=== PATIENT | female | born 1955 | race African-American/Black ===

== ENCOUNTER 2017-06-30 15:37 | Emergency (ER) | payer MEDICARE, MEDICAID ==
[~2017-06-30] VITALS: Ht 157.5 cm; Wt 87.0 kg
[~2017-06-30 15:37] MED LIST: FOS1G PO
[2017-06-30] MEDS ORDERED: KETOROLAC 30MG/ML VIAL IV STA (16:24)
[2017-06-30 17:12] LABS: BASOPHILS % 0.8 % (0.0-2.0); EOSINOPHILS % 7.5 % (0.0-5.0); HEMATOCRIT. 37.9 % (36.0-48.0); HEMOGLOBIN. 12.7 g/dL (12.0-16.0); LYMPHOCYTES % 16.2 % (20.0-50.0); MEAN CORPUSCULAR HEMOGLOBIN 29.5 pg (28.0-32.0); MEAN CORPUSCULAR VOLUME 88.4 fL (81.0-99.0); MONOCYTES % 10.4 % (2.0-8.0); NEUTROPHILS % 65.1 % (40.0-76.0); PLATELET 237 x1000/uL (130-400); RED BLOOD CELL COUNT 4.29 mill/uL (4.2-5.4); RED CELL DISTRIBUTION WIDTH 14.8 % (11.6-14.6)
[2017-06-30 17:16] LABS: INR 1.1; PROTHROMBIN TIME 10.9 sec (9.4-11.6)
[2017-06-30 17:23] LABS: CARBON DIOXIDE 28 mEq/L (21-32); CHLORIDE 100 mEq/L (98-107)
[2017-06-30 17:57] LABS: CLARITY URINE CLOUDY (CLEAR); COLOR URINE YELLOW (YELLOW); GLUCOSE URINE NEGATIVE (NEGATIVE); KETONES URINE NEGATIVE (NEGATIVE); LEUKOCYTE ESTERASE URINE TRACE (NEGATIVE); NITRITE URINE NEGATIVE (NEGATIVE); OCCULT BLOOD URINE NEGATIVE (NEGATIVE); PH URINE >=9.0 (4.5-8.0); PROTEIN URINE 2+ (NEGATIVE); UROBILINOGEN URINE 0.2 E.U./dL (0.2-1.0)
[2017-06-30] MEDS ORDERED: CYCLOBENZAPRINE 10MG TABLET PO ONE (19:45)
[2017-06-30 20:34] VITALS: BP 143/89
== END 2017-06-30 20:36 | disposition home or self-care (01) ==
LOC: ER 15:37
DX: M54.5 Low back pain (principal); R11.2 Nausea with vomiting, unspecified; R06.02 Shortness of breath; I12.0 Hypertensive chronic kidney disease with stage 5 chronic kidney disease or end stage renal disease; N18.6 End stage renal disease; K57.30 Diverticulosis of large intestine without perforation or abscess without bleeding; Z99.2 Dependence on renal dialysis; Z90.710 Acquired absence of both cervix and uterus
CPT/HCPCS: 36415; 71010; 74176; 80053; 81001; 83690; 85025; 85610; 96374; 99285; J1885

== ENCOUNTER 2017-11-02 21:32 | Emergency (ER) | payer MEDICARE, MEDICAID ==
[~2017-11-02] VITALS: Ht 157.5 cm; Wt 88.5 kg
[~2017-11-02 21:32] MED LIST changes: +CINA30 PO; +DIPH25CA83 PO; +HYDR-4009 PO; +ZOLP5TAB2 PO
[2017-11-02] MEDS ORDERED: KETOROLAC 60MG/2ML VIAL IM ONE (22:15)
[2017-11-02] MEDS ORDERED: HYDROCODONE/ACETAMINOPHEN 5/325MG TABLET PO ONE (22:45)
[2017-11-03 00:23] VITALS: BP 109/80
== END 2017-11-03 00:25 | disposition home or self-care (01) ==
LOC: ER 21:41
DX: S83.91XA Sprain of unspecified site of right knee, initial encounter (principal); N18.6 End stage renal disease; Z99.2 Dependence on renal dialysis; Z88.8 Allergy status to other drugs, medicaments and biological substances; Z88.5 Allergy status to narcotic agent; W10.9XXA Fall (on) (from) unspecified stairs and steps, initial encounter; W19.XXXA Unspecified fall, initial encounter; Y93.89 Activity, other specified; Y92.89 Other specified places as the place of occurrence of the external cause; Y99.8 Other external cause status
CPT/HCPCS: 72170; 73562; 96372; 99284; J1885; L1830

== ENCOUNTER 2018-08-15 19:09 | Inpatient (IN) | payer MEDICARE, MEDICAID ==
[~2018-08-15] VITALS: Ht 157.5 cm; Wt 95.8 kg
[2018-08-15] MEDS ORDERED: ALBUTEROL (0.083%) 2.5MG/3ML NEB HHN STA (19:33)
[2018-08-15] MEDS ORDERED: VANCOMYCIN 1 G PREMIX 200 ML IV STA (19:35)
[2018-08-15] MEDS ORDERED: PIPERACILLIN/TAZOBACTAM 3.375GM/50ML PREMIX IV ONE (19:45)
[2018-08-15] MEDS ORDERED: PIPERACILLIN/TAZ 3.375G PREMIX 50 ML IV NR (19:45)
[2018-08-15] MEDS ORDERED: ONDANSETRON HCL 4MG/2ML INJ IV ONE (20:00)
[2018-08-15 20:10] LABS: BG BASE EXCESS 1.9 mmol/L (-2.0-2.0); BG CARBOXYHEMOGLOBIN 0.3 % (0.5-1.5); BG DEOXYHEMOGLOBIN 1.9 % (0.0-5.0); BG FRACTION INSPIRED OXYGEN 28; BG HCO3 ACT 23.9 mmol/L (22.0-26.0); BG METHEMOGLOBIN 0.1 % (0.0-1.5); BG OXYGEN SATURATION 98.1 % (92.0-98.5); BG OXYHEMOGLOBIN 97.7 % (94.0-97.0); BG PCO2 29.5 mmHg (35.0-45.0); BG PH 7.527 (7.350-7.450); BG PO2 109.4 mmHg (75.0-100.0); BG SAMPLE SITE LEFT RADIAL; BG TOTAL HEMOGLOBIN 12.3 g/dL (12.0-18.0); BG VENT MODE COOL AEROSOL
[2018-08-15 20:38] LABS: BASOPHILS % 0.8 % (0.0-2.0); EOSINOPHILS % 7.4 % (0.0-5.0); HEMATOCRIT. 34.4 % (36.0-48.0); HEMOGLOBIN. 11.5 g/dL (12.0-16.0); LYMPHOCYTES % 19.6 % (20.0-50.0); MEAN CORPUSCULAR HEMOGLOBIN 29.1 pg (28.0-32.0); MEAN CORPUSCULAR VOLUME 86.9 fL (81.0-99.0); MEAN PLATELET VOLUME 7.9 fl (7.4-10.4); MONOCYTES % 12.3 % (2.0-8.0); NEUTROPHILS % 59.9 % (40.0-76.0); PLATELET 253 x1000/uL (130-400); RED BLOOD CELL COUNT 3.95 mill/uL (4.2-5.4)
[2018-08-15] MEDS ORDERED: IPRATROPIUM BROMIDE (0.02%) 0.5MG/2.5ML NEB HHN ONE (20:45)
[2018-08-15 20:47] LABS: CHLORIDE 98 mEq/L (98-107); PARTIAL THROMBOPLASTIN TIME 22.8 sec (23.4-31.0); PROTHROMBIN TIME 10.4 sec (9.1-11.1)
[2018-08-15] MEDS ORDERED: DIPHENHYDRAMINE 50MG/ML VIAL IM ONE (22:45)
[2018-08-16] VITALS (8 sets, daily range): BP systolic 100–132; BP diastolic 54–80
[2018-08-16] MEDS: HYDROMORPHONE HCL/PF 2MG/ML CPJ IV PRN ×3 (01:29→13:25)
[2018-08-16] MEDS ORDERED: ZOLPIDEM TARTRATE 5MG TABLET PO PRN (03:00)
[2018-08-16] MEDS ORDERED: IPRATROPIUM/ALBUTEROL 0.5-3(2.5)MG/3ML NEB HHN PRN (03:00)
[2018-08-16] MEDS ORDERED: ACETAMINOPHEN 325MG TABLET PO PRN (03:00)
[2018-08-16] MEDS: DIPHENHYDRAMINE 25MG CAPSULE PO PRN ×3 (03:20→20:11)
[2018-08-16 06:04] LABS: BASOPHILS % 0.5 % (0.0-2.0); EOSINOPHILS % 5.6 % (0.0-5.0); HEMATOCRIT. 32.8 % (36.0-48.0); HEMOGLOBIN. 11.3 g/dL (12.0-16.0); LYMPHOCYTES % 15.3 % (20.0-50.0); MEAN CORPUSCULAR HEMOGLOBIN 30.1 pg (28.0-32.0); MEAN CORPUSCULAR VOLUME 87.3 fL (81.0-99.0); MEAN PLATELET VOLUME 7.8 fl (7.4-10.4); MONOCYTES % 14.7 % (2.0-8.0); NEUTROPHILS % 63.9 % (40.0-76.0); PLATELET 233 x1000/uL (130-400); RED BLOOD CELL COUNT 3.75 mill/uL (4.2-5.4); RED CELL DISTRIBUTION WIDTH 15.7 % (11.6-14.6)
[2018-08-16 06:33] LABS: PHOSPHORUS 7.1 mg/dL (2.5-4.9)
[2018-08-16] MEDS: LANTHANUM CARBONATE 500MG CHEW TABLET PO SCH ×3 (08:00→18:00)
[2018-08-16] MEDS: DOCUSATE SODIUM 250MG CAPSULE PO SCH (08:37)
[2018-08-16] MEDS: FOLIC ACID/VITAMIN B COMP W-C TABLET PO SCH (08:37)
[2018-08-16] MEDS: ENOXAPARIN 30MG/0.3ML SYR SUBCUT SCH (08:40)
[2018-08-16] MEDS ORDERED: MONTELUKAST PO (09:17)
[2018-08-16] MEDS: DIPHENHYDRAMINE 50MG/ML VIAL IV PRN ×2 (13:54→20:21)
[2018-08-16] MEDS: MORPHINE SULFATE 4 MG/ML CPJ (NOT FOR IM USE) IV PRN ×2 (13:54→20:12)
[2018-08-16] MEDS: FAMOTIDINE 20MG TABLET PO SCH (20:11)
[2018-08-16] MEDS: MONTELUKAST SODIUM 10MG TABLET PO SCH (20:11)
[2018-08-17] VITALS (10 sets, daily range): BP systolic 85–140; BP diastolic 56–90
[2018-08-17] MEDS: ACETYLCYSTEINE 100MG/ML 10% VIAL 4ML INH SCH (00:50)
[2018-08-17] MEDS: IPRATROPIUM/ALBUTEROL 0.5-3(2.5)MG/3ML NEB HHN SCH ×4 (00:50→21:16)
[2018-08-17] MEDS: ACETYLCYSTEINE 200MG/ML 20% VIAL 4ML PO SCH ×2 (01:12→08:59)
[2018-08-17 06:05] LABS: CHLORIDE 106 mEq/L (98-107)
[2018-08-17 06:16] LABS: PHOSPHORUS 5.4 mg/dL (2.5-4.9)
[2018-08-17 06:20] LABS: HEMATOCRIT. 34.2 % (36.0-48.0); HEMOGLOBIN. 11.4 g/dL (12.0-16.0); MEAN CORPUSCULAR HEMOGLOBIN 29.4 pg (28.0-32.0); MEAN PLATELET VOLUME 7.9 fl (7.4-10.4); PLATELET 235 x1000/uL (130-400); RED BLOOD CELL COUNT 3.88 mill/uL (4.2-5.4); RED CELL DISTRIBUTION WIDTH 15.9 % (11.6-14.6)
[2018-08-17] MEDS: LANTHANUM CARBONATE 500MG CHEW TABLET PO SCH ×3 (08:00→18:00)
[2018-08-17] MEDS: DOCUSATE SODIUM 250MG CAPSULE PO SCH (08:59)
[2018-08-17] MEDS: FOLIC ACID/VITAMIN B COMP W-C TABLET PO SCH (08:59)
[2018-08-17] MEDS: ENOXAPARIN 30MG/0.3ML SYR SUBCUT SCH (09:00)
[2018-08-17 11:02] LABS: PLATELET ESTIMATE NORMAL
[2018-08-17] MEDS: METHYLPREDNISOLONE SOD SUCC 40 MG/ML VIAL IV SCH ×2 (11:12→17:43)
[2018-08-17] MEDS: DIPHENHYDRAMINE 25MG CAPSULE PO PRN (11:13)
[2018-08-17] MEDS: MORPHINE SULFATE 4 MG/ML CPJ (NOT FOR IM USE) IV PRN ×3 (11:14→22:31)
[2018-08-17] MEDS: DIPHENHYDRAMINE 50MG/ML VIAL IV PRN ×2 (17:49→22:32)
[2018-08-17] MEDS ORDERED: Auryxia PO (19:31)
[2018-08-17] MEDS ORDERED: ACETYLCYSTEINE 200MG/ML 20% VIAL 4ML INH SCH (21:00)
[2018-08-17] MEDS: MONTELUKAST SODIUM 10MG TABLET PO SCH (21:38)
[2018-08-17] MEDS: FAMOTIDINE 20MG TABLET PO SCH (21:43)
[2018-08-18] VITALS (12 sets, daily range): BP systolic 107–143; BP diastolic 48–81
[2018-08-18] MEDS: IPRATROPIUM/ALBUTEROL 0.5-3(2.5)MG/3ML NEB HHN SCH ×2 (02:00→08:21)
[2018-08-18] MEDS: METHYLPREDNISOLONE SOD SUCC 40 MG/ML VIAL IV SCH ×3 (02:00→17:13)
[2018-08-18 05:42] LABS: HEMATOCRIT. 32.8 % (36.0-48.0); HEMOGLOBIN. 11.1 g/dL (12.0-16.0); MEAN CORPUSCULAR HEMOGLOBIN 29.8 pg (28.0-32.0); MEAN CORPUSCULAR VOLUME 88.4 fL (81.0-99.0); PLATELET 245 x1000/uL (130-400); RED BLOOD CELL COUNT 3.71 mill/uL (4.2-5.4); RED CELL DISTRIBUTION WIDTH 15.7 % (11.6-14.6)
[2018-08-18] MEDS: LANTHANUM CARBONATE 500MG CHEW TABLET PO SCH ×4 (08:00→17:14)
[2018-08-18] MEDS: ACETYLCYSTEINE 100MG/ML 10% VIAL 4ML INH SCH ×2 (08:22→13:51)
[2018-08-18] MEDS ORDERED: GUAIFENESIN/CODEINE 200-20MG/10ML UDC PO NR (08:56)
[2018-08-18] MEDS ORDERED: GUAIFENESIN/CODEINE 200-20MG/10ML UDC PO PRN (09:00)
[2018-08-18] MEDS: ARFORMOTEROL TARTRATE 15MCG/2ML NEB NEB SCH ×2 (09:00→20:52)
[2018-08-18] MEDS: MORPHINE SULFATE 4 MG/ML CPJ (NOT FOR IM USE) IV PRN ×2 (09:02→17:06)
[2018-08-18] MEDS: DIPHENHYDRAMINE 50MG/ML VIAL IV PRN ×2 (09:02→21:57)
[2018-08-18] MEDS: FOLIC ACID/VITAMIN B COMP W-C TABLET PO SCH (09:03)
[2018-08-18] MEDS: DOCUSATE SODIUM 250MG CAPSULE PO SCH (09:03)
[2018-08-18] MEDS: ENOXAPARIN 30MG/0.3ML SYR SUBCUT SCH (09:04)
[2018-08-18 12:34] LABS: PLATELET ESTIMATE NORMAL
[2018-08-18] MEDS: IPRATROPIUM/ALBUTEROL 0.5-3(2.5)MG/3ML NEB HHN PRN (15:50)
[2018-08-18] MEDS: FAMOTIDINE 20MG TABLET PO SCH (21:53)
[2018-08-18] MEDS: MONTELUKAST SODIUM 10MG TABLET PO SCH (21:53)
[2018-08-18] MEDS: TEMAZEPAM 15MG CAPSULE PO PRN (21:53)
[2018-08-19] VITALS (10 sets, daily range): BP systolic 101–149; BP diastolic 59–87
[2018-08-19] MEDS: IPRATROPIUM/ALBUTEROL 0.5-3(2.5)MG/3ML NEB HHN PRN (00:47)
[2018-08-19] MEDS: ACETYLCYSTEINE 100MG/ML 10% VIAL 4ML INH SCH ×2 (00:48→08:12)
[2018-08-19] MEDS: HYDROCODONE/ACETAMINOPHEN 10/325MG TABLET PO PRN (05:37)
[2018-08-19] MEDS: DIPHENHYDRAMINE 50MG/ML VIAL IV PRN ×3 (05:38→18:04)
[2018-08-19 06:11] LABS: HEMATOCRIT. 32.3 % (36.0-48.0); HEMOGLOBIN. 10.8 g/dL (12.0-16.0); MEAN CORPUSCULAR HEMOGLOBIN 29.7 pg (28.0-32.0); MEAN CORPUSCULAR VOLUME 88.4 fL (81.0-99.0); MEAN PLATELET VOLUME 8.1 fl (7.4-10.4); PLATELET 226 x1000/uL (130-400); RED BLOOD CELL COUNT 3.66 mill/uL (4.2-5.4); RED CELL DISTRIBUTION WIDTH 15.8 % (11.6-14.6)
[2018-08-19 07:55] LABS: PLATELET ESTIMATE NORMAL
[2018-08-19] MEDS: LANTHANUM CARBONATE 500MG CHEW TABLET PO SCH ×3 (08:00→17:25)
[2018-08-19] MEDS: METHYLPREDNISOLONE SOD SUCC 40 MG/ML VIAL IV SCH (08:08)
[2018-08-19] MEDS: FOLIC ACID/VITAMIN B COMP W-C TABLET PO SCH (08:08)
[2018-08-19] MEDS: DOCUSATE SODIUM 250MG CAPSULE PO SCH (08:08)
[2018-08-19] MEDS: ARFORMOTEROL TARTRATE 15MCG/2ML NEB NEB SCH ×3 (08:09→21:01)
[2018-08-19] MEDS: ENOXAPARIN 30MG/0.3ML SYR SUBCUT SCH (08:09)
[2018-08-19] MEDS: FERRIC CITRATE 210 MG PO SCH ×5 (08:20→17:25)
[2018-08-19] MEDS: DIPHENHYDRAMINE 25MG CAPSULE PO PRN (09:13)
[2018-08-19] MEDS: MORPHINE SULFATE 4 MG/ML CPJ (NOT FOR IM USE) IV PRN (11:55)
[2018-08-19] MEDS ORDERED: EPOETIN ALFA 4000UNITS/ML VIAL SUBCUT SCH (21:00)
[2018-08-19] MEDS: TEMAZEPAM 15MG CAPSULE PO PRN (21:32)
[2018-08-19] MEDS: MONTELUKAST SODIUM 10MG TABLET PO SCH (21:32)
[2018-08-19] MEDS: FAMOTIDINE 20MG TABLET PO SCH (21:32)
[2018-08-20] VITALS (10 sets, daily range): BP systolic 113–136; BP diastolic 70–88
[2018-08-20] MEDS: HYDROCODONE/ACETAMINOPHEN 10/325MG TABLET PO PRN (06:16)
[2018-08-20] MEDS: DIPHENHYDRAMINE 50MG/ML VIAL IV PRN ×2 (06:16→12:42)
[2018-08-20 06:46] LABS: BASOPHILS % 0.4 % (0.0-2.0); EOSINOPHILS % 0.6 % (0.0-5.0); HEMATOCRIT. 32.9 % (36.0-48.0); HEMOGLOBIN. 10.9 g/dL (12.0-16.0); LYMPHOCYTES % 18.3 % (20.0-50.0); MEAN CORPUSCULAR HEMOGLOBIN 29.4 pg (28.0-32.0); MEAN CORPUSCULAR VOLUME 88.4 fL (81.0-99.0); MEAN PLATELET VOLUME 7.7 fl (7.4-10.4); MONOCYTES % 10.2 % (2.0-8.0); NEUTROPHILS % 70.5 % (40.0-76.0); PLATELET 227 x1000/uL (130-400); RED BLOOD CELL COUNT 3.72 mill/uL (4.2-5.4)
[2018-08-20 07:13] LABS: PHOSPHORUS 4.8 mg/dL (2.5-4.9)
[2018-08-20] MEDS: IPRATROPIUM/ALBUTEROL 0.5-3(2.5)MG/3ML NEB HHN PRN (07:39)
[2018-08-20] MEDS: LANTHANUM CARBONATE 500MG CHEW TABLET PO SCH ×2 (08:00→13:00)
[2018-08-20] MEDS: FOLIC ACID/VITAMIN B COMP W-C TABLET PO SCH (08:26)
[2018-08-20] MEDS: DOCUSATE SODIUM 250MG CAPSULE PO SCH (08:26)
[2018-08-20] MEDS: ENOXAPARIN 30MG/0.3ML SYR SUBCUT SCH (08:26)
[2018-08-20] MEDS ORDERED: PREDNISONE 20MG TABLET PO SCH (09:00)
[2018-08-20] MEDS: ARFORMOTEROL TARTRATE 15MCG/2ML NEB NEB SCH (09:40)
[2018-08-20] MEDS ORDERED: NA PHOS,M-B/NA PHOS,DI-BA ENEMA 118ML PR NR (09:45)
[2018-08-20] MEDS ORDERED: SODIUM POLYSTYRENE SULFONATE 15 G/60 ML BOT PO NR (09:45)
[2018-08-20] MEDS: FERRIC CITRATE 210 MG PO SCH ×3 (10:20→13:00)
== END 2018-08-20 17:12 | disposition home or self-care (01) | DRG 189 ==
LOC: ER 19:09 → 5EST 21:17 → EDBEDREQ 21:20 → EDBEDREQTM 21:20 → ENRESERV 21:44
PROVIDERS: ADMIT Internal Medicine Geriatric Medicine; ATTEND Internal Medicine Geriatric Medicine
PROC: 5A1D70Z Performance of Urinary Filtration, Intermittent, Less than 6 Hours Per Day (ICD-10-PCS; 2018-08-15)
PROC: 5A1D70Z Performance of Urinary Filtration, Intermittent, Less than 6 Hours Per Day (ICD-10-PCS; principal; 2018-08-18)
DX: J96.20 Acute and chronic respiratory failure, unspecified whether with hypoxia or hypercapnia (principal); N18.6 End stage renal disease; J44.1 Chronic obstructive pulmonary disease with (acute) exacerbation; E46 Unspecified protein-calorie malnutrition; J44.0 Chronic obstructive pulmonary disease with (acute) lower respiratory infection; I12.0 Hypertensive chronic kidney disease with stage 5 chronic kidney disease or end stage renal disease; J20.9 Acute bronchitis, unspecified; G58.8 Other specified mononeuropathies; E66.01 Morbid (severe) obesity due to excess calories; Z99.2 Dependence on renal dialysis; Z93.0 Tracheostomy status; L29.9 Pruritus, unspecified; D63.1 Anemia in chronic kidney disease; E87.5 Hyperkalemia; F41.1 Generalized anxiety disorder; G47.33 Obstructive sleep apnea (adult) (pediatric); Z88.5 Allergy status to narcotic agent; Z88.8 Allergy status to other drugs, medicaments and biological substances; Z90.710 Acquired absence of both cervix and uterus; Z88.0 Allergy status to penicillin; Z68.38 Body mass index [BMI] 38.0-38.9, adult; Z88.1 Allergy status to other antibiotic agents; Z79.899 Other long term (current) drug therapy; Z98.891 History of uterine scar from previous surgery
CPT/HCPCS: 36415; 36600; 71045; 80048; 82375; 82805; 83605; 83735; 83880; 84100; 84132; 84484; 87070; 93005; 93970; 93971; 94640; 96365; 96367; 96372; 96375; 99285; C1893; J1170; J1200; J1650; J2270; J2405; J2543; J2920; J3370; J7030; J7512; J7608; J7620; Q0163

== ENCOUNTER 2018-08-25 15:54 | Inpatient (IN) | payer MEDICARE, MEDICAID ==
[~2018-08-25] VITALS: Ht 157.5 cm; Wt 103.9 kg
[~2018-08-25 15:54] MED LIST changes: +Auryxia PO; -FOS1G PO; +MONTELUKAST PO
[2018-08-25 16:00] VITALS: BP 147/90
[2018-08-25] MEDS ORDERED: BENZONATATE 100MG CAPSULE PO PRN (17:15)
[2018-08-25] MEDS ORDERED: IPRATROPIUM/ALBUTEROL 0.5-3(2.5)MG/3ML NEB HHN PRN (17:15)
[2018-08-25 17:44] LABS: BG BASE EXCESS -3.1 mmol/L (-2.0-2.0); BG CARBOXYHEMOGLOBIN 0.5 % (0.5-1.5); BG DEOXYHEMOGLOBIN 5.2 % (0.0-5.0); BG FRACTION INSPIRED OXYGEN 21; BG METHEMOGLOBIN 0.6 % (0.0-1.5); BG OXYGEN SATURATION 94.7 % (92.0-98.5); BG OXYHEMOGLOBIN 93.7 % (94.0-97.0); BG PCO2 29.6 mmHg (35.0-45.0); BG PH 7.447 (7.350-7.450); BG PO2 73.7 mmHg (75.0-100.0); BG SAMPLE SITE LEFT RADIAL; BG TOTAL HEMOGLOBIN 11.5 g/dL (12.0-18.0); BG VENT MODE ROOM AIR
[2018-08-25 18:00] VITALS: BP 127/55
[2018-08-25 18:04] VITALS: BP 127/55
[2018-08-25] MEDS ORDERED: METHYLPREDNISOLONE SOD SUCC 125 MG/2 ML VIAL IV NR (18:08)
[2018-08-25] MEDS ORDERED: ACETAMINOPHEN 325MG TABLET PO PRN (18:16)
[2018-08-25] MEDS ORDERED: MORPHINE SULFATE 10 MG/ML CPJ IM ONE (19:30)
[2018-08-25 20:00] VITALS: BP 136/85
[2018-08-25] MEDS: IPRATROPIUM/ALBUTEROL 0.5-3(2.5)MG/3ML NEB HHN SCH (20:29)
[2018-08-25] MEDS: ARFORMOTEROL TARTRATE 15MCG/2ML NEB NEB SCH (20:37)
[2018-08-25] MEDS: MORPHINE SULFATE 4 MG/ML CPJ (NOT FOR IM USE) IV PRN (20:45)
[2018-08-25] MEDS ORDERED: ASPIRIN 81MG EC TABLET PO NR (21:00)
[2018-08-25] MEDS ORDERED: ENOXAPARIN 30MG/0.3ML SYR SUBCUT SCH (21:00)
[2018-08-25] MEDS ORDERED: PANTOPRAZOLE 40MG DR TABLET PO NR (21:00)
[2018-08-25 21:22] LABS: HEMOGLOBIN. 10.9 g/dL (12.0-16.0); MEAN CORPUSCULAR HEMOGLOBIN 29.2 pg (28.0-32.0); MEAN PLATELET VOLUME 8.1 fl (7.4-10.4); PLATELET 196 x1000/uL (130-400); RED BLOOD CELL COUNT 3.74 mill/uL (4.2-5.4); RED CELL DISTRIBUTION WIDTH 15.9 % (11.6-14.6)
[2018-08-25 21:28] LABS: CHLORIDE 102 mEq/L (98-107)
[2018-08-25] MEDS: DIPHENHYDRAMINE 50MG/ML VIAL IV PRN (21:40)
[2018-08-25 22:00] VITALS: BP 146/69
[2018-08-25] MEDS ORDERED: ACETYLCYSTEINE 100MG/ML 10% VIAL 4ML INH SCH (22:00)
[2018-08-25 22:10] LABS: PLATELET ESTIMATE NORMAL
[2018-08-25] MEDS ORDERED: METHYLPREDNISOLONE SOD SUCC 125 MG/2 ML VIAL IV SCH (23:00)
[2018-08-25] MEDS: METHYLPREDNISOLONE SOD SUCC 40 MG/ML VIAL IV SCH (23:35)
[2018-08-26] VITALS (12 sets, daily range): BP systolic 101–162; BP diastolic 61–91
[2018-08-26] MEDS: DIPHENHYDRAMINE 50MG/ML VIAL IV PRN ×2 (03:38→16:29)
[2018-08-26] MEDS: MORPHINE SULFATE 4 MG/ML CPJ (NOT FOR IM USE) IV PRN ×2 (03:39→16:28)
[2018-08-26] MEDS: IPRATROPIUM/ALBUTEROL 0.5-3(2.5)MG/3ML NEB HHN SCH ×3 (04:30→11:22)
[2018-08-26] MEDS: HYDROCODONE/ACETAMINOPHEN 10/325MG TABLET PO PRN (05:48)
[2018-08-26] MEDS: METHYLPREDNISOLONE SOD SUCC 40 MG/ML VIAL IV SCH ×3 (06:35→22:42)
[2018-08-26 07:09] LABS: HEMATOCRIT. 34.6 % (36.0-48.0); HEMOGLOBIN. 11.3 g/dL (12.0-16.0); MEAN CORPUSCULAR HEMOGLOBIN 29.1 pg (28.0-32.0); MEAN CORPUSCULAR VOLUME 89.4 fL (81.0-99.0); MEAN PLATELET VOLUME 8.2 fl (7.4-10.4); PLATELET 186 x1000/uL (130-400); RED BLOOD CELL COUNT 3.88 mill/uL (4.2-5.4); RED CELL DISTRIBUTION WIDTH 15.9 % (11.6-14.6)
[2018-08-26 07:19] LABS: CHLORIDE 100 mEq/L (98-107)
[2018-08-26 08:33] LABS: PLATELET ESTIMATE NORMAL
[2018-08-26] MEDS: ARFORMOTEROL TARTRATE 15MCG/2ML NEB NEB SCH ×2 (08:35→20:49)
[2018-08-26] MEDS: CEFTRIAXONE 1 G PREMIX 50 ML IV SCH (09:45)
[2018-08-26] MEDS: PANTOPRAZOLE 40MG DR TABLET PO SCH (09:45)
[2018-08-26] MEDS: CINACALCET HCL 30MG TABLET PO SCH ×2 (09:45→14:52)
[2018-08-26] MEDS: ASPIRIN 81MG EC TABLET PO SCH (09:45)
[2018-08-26] MEDS: GUAIFENESIN/CODEINE 100-10MG/5ML UDC PO PRN (09:45)
[2018-08-26] MEDS: ENOXAPARIN 30MG/0.3ML SYR SUBCUT SCH (09:46)
[2018-08-26] MEDS: IPRATROPIUM BROMIDE (0.02%) 0.5MG/2.5ML NEB HHN PRN (15:57)
[2018-08-26] MEDS: MONTELUKAST SODIUM 10MG TABLET PO SCH (16:27)
[2018-08-26] MEDS: ZOLPIDEM TARTRATE 5MG TABLET PO PRN (22:42)
[2018-08-26] MEDS: DIPHENHYDRAMINE 25MG CAPSULE PO PRN (22:45)
[2018-08-27] VITALS (12 sets, daily range): BP systolic 110–153; BP diastolic 51–99
[2018-08-27] MEDS: IPRATROPIUM BROMIDE (0.02%) 0.5MG/2.5ML NEB HHN PRN ×2 (00:59→04:31)
[2018-08-27] MEDS: METHYLPREDNISOLONE SOD SUCC 40 MG/ML VIAL IV SCH ×3 (06:00→21:36)
[2018-08-27 07:13] LABS: HEMATOCRIT. 32.3 % (36.0-48.0); HEMOGLOBIN. 10.7 g/dL (12.0-16.0); MEAN CORPUSCULAR HEMOGLOBIN 29.4 pg (28.0-32.0); MEAN CORPUSCULAR VOLUME 88.4 fL (81.0-99.0); MEAN PLATELET VOLUME 8.3 fl (7.4-10.4); PLATELET 200 x1000/uL (130-400); RED BLOOD CELL COUNT 3.65 mill/uL (4.2-5.4)
[2018-08-27 07:47] LABS: PHOSPHORUS 5.4 mg/dL (2.5-4.9)
[2018-08-27] MEDS: CEFTRIAXONE 1 G PREMIX 50 ML IV SCH (08:59)
[2018-08-27] MEDS: ASPIRIN 81MG EC TABLET PO SCH (08:59)
[2018-08-27] MEDS: ENOXAPARIN 30MG/0.3ML SYR SUBCUT SCH (08:59)
[2018-08-27] MEDS: PANTOPRAZOLE 40MG DR TABLET PO SCH (09:06)
[2018-08-27] MEDS: ARFORMOTEROL TARTRATE 15MCG/2ML NEB NEB SCH ×2 (09:20→21:23)
[2018-08-27] MEDS: DIPHENHYDRAMINE 25MG CAPSULE PO PRN (09:30)
[2018-08-27] MEDS: CINACALCET HCL 30MG TABLET PO SCH ×4 (09:31→17:06)
[2018-08-27 11:23] LABS: PLATELET ESTIMATE NORMAL
[2018-08-27] MEDS ORDERED: AZITHROMYCIN IV SCH (11:30)
[2018-08-27] MEDS ORDERED: WATER IV SCH (11:30)
[2018-08-27] MEDS ORDERED: DEXT 5% IV SCH (11:30)
[2018-08-27] MEDS ORDERED: LIDOCAINE HCL 1% 20ML VIAL (Pyxis) INJ ONE (13:07)
[2018-08-27] MEDS: DIPHENHYDRAMINE 50MG/ML VIAL IV PRN ×2 (14:01→21:36)
[2018-08-27] MEDS: MORPHINE SULFATE 4 MG/ML CPJ (NOT FOR IM USE) IV PRN ×2 (14:03→21:37)
[2018-08-27] MEDS: MONTELUKAST SODIUM 10MG TABLET PO SCH (17:06)
[2018-08-27] MEDS: GUAIFENESIN 600MG ER TABLET PO SCH (21:36)
[2018-08-27] MEDS: ZOLPIDEM TARTRATE 5MG TABLET PO PRN (21:37)
[2018-08-27] MEDS ORDERED: LACTULOSE 20G/30ML UDC PO PRN (22:00)
[2018-08-27] MEDS: DOCUSATE SODIUM 250MG CAPSULE PO PRN (22:31)
[2018-08-28] VITALS (12 sets, daily range): BP systolic 127–156; BP diastolic 50–97
[2018-08-28] MEDS: DIPHENHYDRAMINE 50MG/ML VIAL IV PRN ×4 (03:07→22:13)
[2018-08-28] MEDS: MORPHINE SULFATE 4 MG/ML CPJ (NOT FOR IM USE) IV PRN ×4 (03:08→22:14)
[2018-08-28] MEDS: METHYLPREDNISOLONE SOD SUCC 40 MG/ML VIAL IV SCH (06:21)
[2018-08-28 08:13] LABS: CHLORIDE 109 mEq/L (98-107)
[2018-08-28] MEDS: ARFORMOTEROL TARTRATE 15MCG/2ML NEB NEB SCH (08:33)
[2018-08-28] MEDS: IPRATROPIUM BROMIDE (0.02%) 0.5MG/2.5ML NEB HHN SCH ×4 (08:45→20:39)
[2018-08-28] MEDS: ACETYLCYSTEINE 100MG/ML 10% VIAL 4ML INH SCH ×2 (08:45→12:15)
[2018-08-28] MEDS: CEFTRIAXONE 1 G PREMIX 50 ML IV SCH (09:34)
[2018-08-28] MEDS: FLUTICASONE PROPIONATE 50MCG/SPRAY BOTTLE BOTHNSTRLS SCH ×2 (10:00→21:00)
[2018-08-28] MEDS: CINACALCET HCL 30MG TABLET PO SCH ×2 (14:48→16:20)
[2018-08-28] MEDS: FAMOTIDINE 20MG TABLET PO SCH (14:48)
[2018-08-28] MEDS: ASPIRIN 81MG EC TABLET PO SCH (14:49)
[2018-08-28] MEDS: GUAIFENESIN 600MG ER TABLET PO SCH ×2 (14:49→22:18)
[2018-08-28] MEDS: ENOXAPARIN 30MG/0.3ML SYR SUBCUT SCH (14:54)
[2018-08-28] MEDS: MONTELUKAST SODIUM 10MG TABLET PO SCH (17:00)
[2018-08-28] MEDS ORDERED: AZITHROMYCIN 250 MG in DEXT 5% WATER 250 ML IV SCH (17:30)
[2018-08-28 18:06] LABS: HEMATOCRIT. 33.9 % (36.0-48.0); HEMOGLOBIN. 11.2 g/dL (12.0-16.0); MEAN CORPUSCULAR HEMOGLOBIN 29.6 pg (28.0-32.0); MEAN CORPUSCULAR VOLUME 89.7 fL (81.0-99.0); RED BLOOD CELL COUNT 3.77 mill/uL (4.2-5.4); RED CELL DISTRIBUTION WIDTH 16.4 % (11.6-14.6)
[2018-08-28] MEDS: ZOLPIDEM TARTRATE 5MG TABLET PO PRN (22:14)
[2018-08-29] VITALS (11 sets, daily range): BP systolic 103–162; BP diastolic 49–98
[2018-08-29] MEDS: ACETYLCYSTEINE 100MG/ML 10% VIAL 4ML INH SCH ×2 (00:25→08:06)
[2018-08-29] MEDS: IPRATROPIUM BROMIDE (0.02%) 0.5MG/2.5ML NEB HHN SCH ×3 (04:29→11:53)
[2018-08-29] MEDS: ARFORMOTEROL TARTRATE 15MCG/2ML NEB NEB SCH ×2 (04:29→08:05)
[2018-08-29] MEDS: DIPHENHYDRAMINE 50MG/ML VIAL IV PRN ×2 (05:03→12:24)
[2018-08-29] MEDS: MORPHINE SULFATE 4 MG/ML CPJ (NOT FOR IM USE) IV PRN (05:03)
[2018-08-29] MEDS ORDERED: SODIUM POLYSTYRENE SULFONATE 15 G/60 ML BOT PO SCH (08:30)
[2018-08-29] MEDS: FLUTICASONE PROPIONATE 50MCG/SPRAY BOTTLE BOTHNSTRLS SCH (09:00)
[2018-08-29] MEDS ORDERED: METHYLPREDNISOLONE SOD SUCC 40 MG/ML VIAL IV SCH (09:00)
[2018-08-29] MEDS: GUAIFENESIN/CODEINE 100-10MG/5ML UDC PO PRN (09:04)
[2018-08-29] MEDS: CEFTRIAXONE 1 G PREMIX 50 ML IV SCH (09:04)
[2018-08-29] MEDS: FAMOTIDINE 20MG TABLET PO SCH (09:05)
[2018-08-29] MEDS: DOCUSATE SODIUM 250MG CAPSULE PO PRN (09:06)
[2018-08-29] MEDS: GUAIFENESIN 600MG ER TABLET PO SCH (09:06)
[2018-08-29] MEDS: HYDROCODONE/ACETAMINOPHEN 10/325MG TABLET PO PRN (09:06)
[2018-08-29] MEDS: ENOXAPARIN 30MG/0.3ML SYR SUBCUT SCH (09:09)
[2018-08-29] MEDS: ASPIRIN 81MG EC TABLET PO SCH (09:21)
[2018-08-29 09:46] LABS: HEMATOCRIT. 33.5 % (36.0-48.0); HEMOGLOBIN. 11.2 g/dL (12.0-16.0); MEAN CORPUSCULAR HEMOGLOBIN 29.8 pg (28.0-32.0); MEAN CORPUSCULAR VOLUME 89.1 fL (81.0-99.0); MEAN PLATELET VOLUME 8.4 fl (7.4-10.4); PLATELET 213 x1000/uL (130-400); RED BLOOD CELL COUNT 3.76 mill/uL (4.2-5.4); RED CELL DISTRIBUTION WIDTH 16.9 % (11.6-14.6)
[2018-08-29 10:40] LABS: PLATELET ESTIMATE NORMAL
[2018-08-29] MEDS ORDERED: SODIUM POLYSTYRENE SULFONATE 15 G/60 ML BOT PO NR (13:00)
== END 2018-08-29 17:15 | disposition home or self-care (01) | DRG 189 ==
LOC: 5EST 15:54
PROVIDERS: ADMIT Internal Medicine Geriatric Medicine; ATTEND Internal Medicine Geriatric Medicine
PROC: 5A1D70Z Performance of Urinary Filtration, Intermittent, Less than 6 Hours Per Day (ICD-10-PCS; 2018-08-26)
PROC: 05HY33Z Insertion of Infusion Device into Upper Vein, Percutaneous Approach (ICD-10-PCS; principal; 2018-08-27)
PROC: B54NZZA Ultrasonography of Left Upper Extremity Veins, Guidance (ICD-10-PCS; 2018-08-27)
PROC: 5A1D70Z Performance of Urinary Filtration, Intermittent, Less than 6 Hours Per Day (ICD-10-PCS; 2018-08-29)
DX: J96.20 Acute and chronic respiratory failure, unspecified whether with hypoxia or hypercapnia (principal); N18.6 End stage renal disease; J44.0 Chronic obstructive pulmonary disease with (acute) lower respiratory infection; I50.42 Chronic combined systolic (congestive) and diastolic (congestive) heart failure; J44.1 Chronic obstructive pulmonary disease with (acute) exacerbation; E46 Unspecified protein-calorie malnutrition; I13.2 Hypertensive heart and chronic kidney disease with heart failure and with stage 5 chronic kidney disease, or end stage renal disease; N25.81 Secondary hyperparathyroidism of renal origin; Z68.41 Body mass index [BMI] 40.0-44.9, adult; J20.9 Acute bronchitis, unspecified; Z93.0 Tracheostomy status; D64.9 Anemia, unspecified; E66.9 Obesity, unspecified; F41.1 Generalized anxiety disorder; L29.9 Pruritus, unspecified; G47.33 Obstructive sleep apnea (adult) (pediatric); J30.9 Allergic rhinitis, unspecified; K57.90 Diverticulosis of intestine, part unspecified, without perforation or abscess without bleeding; J38.00 Paralysis of vocal cords and larynx, unspecified; K21.9 Gastro-esophageal reflux disease without esophagitis; K59.09 Other constipation; M19.90 Unspecified osteoarthritis, unspecified site; M48.00 Spinal stenosis, site unspecified; Z96.642 Presence of left artificial hip joint; Z88.5 Allergy status to narcotic agent; Z90.710 Acquired absence of both cervix and uterus; Z99.2 Dependence on renal dialysis; Z88.1 Allergy status to other antibiotic agents; Z88.8 Allergy status to other drugs, medicaments and biological substances; Z98.891 History of uterine scar from previous surgery; Z90.49 Acquired absence of other specified parts of digestive tract
CPT/HCPCS: 36415; 36569; 36600; 71045; 76937; 80048; 82330; 82375; 82805; 83735; 83970; 84100; 84484; 87070; 87077; 87186; 94640; 94667; 97162; C1725; C1893; J0456; J0696; J1200; J1650; J2270; J2920; J2930; J3490; J7030; J7040; J7050; J7060; J7608; J7620; Q0163

== ENCOUNTER 2018-09-03 18:30 | Inpatient (IN) | payer MEDICARE, MEDICAID ==
[~2018-09-03] VITALS: Ht 157.5 cm; Wt 94.8 kg
[~2018-09-03 18:30] MED LIST changes: +IPRATROPIUM/ALBUTEROL 0.5-3(2.5)MG/3ML NEB INH SCH
[2018-09-03] MEDS ORDERED: METHYLPREDNISOLONE SOD SUCC 125 MG/2 ML VIAL IV STA (18:39)
[2018-09-03] MEDS ORDERED: VANCOMYCIN 1 G PREMIX 200 ML IV SCH (18:45)
[2018-09-03] MEDS ORDERED: MAGNESIUM 2 G PREMIX 50 ML IV ONE (18:45)
[2018-09-03] MEDS ORDERED: PIPERACILLIN/TAZ 3.375G PREMIX 50 ML IV ONE (18:45)
[2018-09-03] MEDS ORDERED: IPRATROPIUM/ALBUTEROL 0.5-3(2.5)MG/3ML NEB HHN ONE (18:45)
[2018-09-03 19:35] LABS: BASOPHILS % 0.4 % (0.0-2.0); EOSINOPHILS % 5.4 % (0.0-5.0); HEMATOCRIT. 32.6 % (36.0-48.0); HEMOGLOBIN. 11.2 g/dL (12.0-16.0); MEAN CORPUSCULAR HEMOGLOBIN 30.1 pg (28.0-32.0); MEAN CORPUSCULAR VOLUME 87.6 fL (81.0-99.0); MEAN PLATELET VOLUME 7.9 fl (7.4-10.4); MONOCYTES % 10.6 % (2.0-8.0); NEUTROPHILS % 66.6 % (40.0-76.0); PLATELET 224 x1000/uL (130-400); RED BLOOD CELL COUNT 3.72 mill/uL (4.2-5.4); RED CELL DISTRIBUTION WIDTH 16.1 % (11.6-14.6)
[2018-09-03 19:40] LABS: CHLORIDE 98 mEq/L (98-107)
[2018-09-03 19:44] LABS: ETHANOL BLOOD < 10 mg/dL
[2018-09-03] MEDS ORDERED: AZITHROMYCIN 500 MG TABLET PO ONE (19:45)
[2018-09-03] MEDS ORDERED: PREDNISONE 20MG TABLET PO ONE (19:45)
[2018-09-03 21:16] LABS: BG BASE EXCESS 0.2 mmol/L (-2.0-2.0); BG CARBOXYHEMOGLOBIN 0.3 % (0.5-1.5); BG DEOXYHEMOGLOBIN 2.3 % (0.0-5.0); BG FRACTION INSPIRED OXYGEN 40; BG HCO3 ACT 23.4 mmol/L (22.0-26.0); BG METHEMOGLOBIN 0.4 % (0.0-1.5); BG OXYGEN SATURATION 97.7 % (92.0-98.5); BG PCO2 32.6 mmHg (35.0-45.0); BG PH 7.473 (7.350-7.450); BG PO2 105.5 mmHg (75.0-100.0); BG SAMPLE SITE LEFT BRACHIAL; BG TOTAL HEMOGLOBIN 11.3 g/dL (12.0-18.0); BG VENT MODE MASK - AEROSOL
[2018-09-03 21:26] LABS: PARTIAL THROMBOPLASTIN TIME 28.6 sec (23.4-31.0); PROTHROMBIN TIME 10.4 sec (9.1-11.1)
[2018-09-03] MEDS ORDERED: DEXT 5%/0.45% NACL 1000ML 1,000 ML IV SCH (22:56)
[2018-09-03] MEDS ORDERED: CLONIDINE 0.1MG TABLET PO PRN (23:00)
[2018-09-03] MEDS ORDERED: MAGNESIUM/ALUMINUM HYDROXIDE/SIMETHICONE 30ML UDC PO PRN (23:00)
[2018-09-03] MEDS ORDERED: ACETAMINOPHEN 650MG SUPP PR PRN (23:00)
[2018-09-03 23:19] VITALS: BP 145/88
[2018-09-04] MEDS ORDERED: FAMO40TA70 MT (00:10)
[2018-09-04] MEDS ORDERED: DOCU250C14 MT (00:10)
[2018-09-04] MEDS: HYDROCODONE/ACETAMINOPHEN 5/325MG TABLET PO PRN ×2 (00:41→16:07)
[2018-09-04] MEDS ORDERED: CEFTRIAXONE 1 G PREMIX 50 ML IV SCH (01:00)
[2018-09-04] MEDS: DIPHENHYDRAMINE 50MG/ML VIAL IV PRN ×2 (01:09→09:38)
[2018-09-04] MEDS: METHYLPREDNISOLONE SOD SUCC 125 MG/2 ML VIAL IV SCH ×2 (01:09→05:46)
[2018-09-04 04:00] VITALS: BP 155/81
[2018-09-04] MEDS: SODIUM CHLORIDE 0.9% INJ 3ML FLUSH IVF SCH ×3 (05:46→22:27)
[2018-09-04 06:50] LABS: HEMATOCRIT. 30.9 % (36.0-48.0); HEMOGLOBIN. 10.5 g/dL (12.0-16.0); MEAN CORPUSCULAR HEMOGLOBIN 29.9 pg (28.0-32.0); MEAN CORPUSCULAR VOLUME 88.3 fL (81.0-99.0); PLATELET 205 x1000/uL (130-400); RED CELL DISTRIBUTION WIDTH 16.2 % (11.6-14.6)
[2018-09-04 07:13] LABS: CLARITY URINE CLOUDY (CLEAR); COLOR URINE GREEN (YELLOW); KETONES URINE NEGATIVE (NEGATIVE); LEUKOCYTE ESTERASE URINE NEGATIVE (NEGATIVE); NITRITE URINE NEGATIVE (NEGATIVE); OCCULT BLOOD URINE NEGATIVE (NEGATIVE); PROTEIN URINE 2+ (NEGATIVE); SPECIFIC GRAVITY URINE 1.009 (1.005-1.030); UROBILINOGEN URINE 0.2 E.U./dL (0.2-1.0)
[2018-09-04] MEDS ORDERED: GUAIFENESIN/CODEINE 100-10MG/5ML UDC PO PRN (07:15)
[2018-09-04 07:53] LABS: CANNABINOID URINE SCREEN NEGATIVE (NEGATIVE)
[2018-09-04 07:54] LABS: *AMPHETAMINES SCREEN URINE NEGATIVE (NEGATIVE); *BENZODIAZEPINES SCREEN URINE NEGATIVE (NEGATIVE); *COCAINE SCREEN URINE NEGATIVE (NEGATIVE); OPIATES URINE SCREEN PRESUMTIVE POSITIVE (NEGATIVE)
[2018-09-04 07:55] LABS: *BARBITURATES SCREEN URINE NEGATIVE (NEGATIVE); PHENCYCLIDINE URINE SCREEN NEGATIVE (NEGATIVE)
[2018-09-04 08:00] VITALS: BP 149/88
[2018-09-04] MEDS ORDERED: IPRATROPIUM BROMIDE (0.02%) 0.5MG/2.5ML NEB HHN SCH (08:00)
[2018-09-04 08:02] LABS: METHADONE URINE SCREEN NEGATIVE (NEGATIVE)
[2018-09-04] MEDS: FLUTICASONE PROPIONATE 50MCG/SPRAY BOTTLE BOTHNSTRLS SCH ×3 (09:00→21:36)
[2018-09-04] MEDS: FAMOTIDINE 20MG/2ML VIAL IV SCH (09:36)
[2018-09-04] MEDS: ENOXAPARIN 30MG/0.3ML SYR SUBCUT SCH (09:36)
[2018-09-04 09:54] LABS: CHLORIDE 99 mEq/L (98-107)
[2018-09-04 10:03] LABS: HDL CHOLESTEROL 73 mg/dL (40-59)
[2018-09-04 10:05] LABS: LDL CHOLESTEROL 94 mg/dL (5-100)
[2018-09-04] MEDS ORDERED: DIPHENHYDRAMINE 50MG/ML VIAL IV SCH (11:45)
[2018-09-04 12:00] VITALS: BP 175/87
[2018-09-04] MEDS ORDERED: SODIUM CHLORIDE 3% FOR INH 15ML VIAL NEB INH SCH (12:00)
[2018-09-04] MEDS: LANTHANUM CARBONATE 500MG CHEW TABLET PO SCH ×2 (12:18→16:32)
[2018-09-04] MEDS: FOLIC ACID/VITAMIN B COMP W-C TABLET PO SCH (12:18)
[2018-09-04] MEDS: METHYLPREDNISOLONE SOD SUCC 40 MG/ML VIAL IV SCH ×2 (13:40→21:19)
[2018-09-04] MEDS: DOCUSATE SODIUM 100MG CAPSULE PO PRN (13:43)
[2018-09-04] MEDS: ACETYLCYSTEINE 100MG/ML 10% VIAL 4ML INH SCH (15:49)
[2018-09-04 16:00] VITALS: BP 176/90
[2018-09-04] MEDS: MONTELUKAST SODIUM 10MG TABLET PO SCH (16:32)
[2018-09-04 20:00] VITALS: BP 140/79
[2018-09-04] MEDS: LORATADINE 10MG TABLET PO SCH (21:20)
[2018-09-04] MEDS: ARFORMOTEROL TARTRATE 15MCG/2ML NEB NEB SCH (21:48)
[2018-09-04 22:12] LABS: PLATELET ESTIMATE NORMAL
[2018-09-05] VITALS (7 sets, daily range): BP systolic 105–164; BP diastolic 54–88
[2018-09-05] MEDS: ACETYLCYSTEINE 100MG/ML 10% VIAL 4ML INH SCH ×4 (00:25→21:37)
[2018-09-05] MEDS: IPRATROPIUM/ALBUTEROL 0.5-3(2.5)MG/3ML NEB INH PRN ×3 (00:26→16:47)
[2018-09-05] MEDS: CEFTRIAXONE 1 G PREMIX 50 ML IV SCH ×2 (03:55→05:56)
[2018-09-05] MEDS: METHYLPREDNISOLONE SOD SUCC 40 MG/ML VIAL IV SCH ×2 (06:06→17:52)
[2018-09-05] MEDS: SODIUM CHLORIDE 0.9% INJ 3ML FLUSH IVF SCH ×3 (06:07→21:27)
[2018-09-05] MEDS: DIPHENHYDRAMINE 50MG/ML VIAL IV PRN ×3 (06:07→21:42)
[2018-09-05] MEDS: HYDROCODONE/ACETAMINOPHEN 5/325MG TABLET PO PRN (06:17)
[2018-09-05] MEDS: LANTHANUM CARBONATE 500MG CHEW TABLET PO SCH ×4 (07:50→17:50)
[2018-09-05] MEDS: ARFORMOTEROL TARTRATE 15MCG/2ML NEB NEB SCH ×2 (08:17→21:27)
[2018-09-05] MEDS: ENOXAPARIN 30MG/0.3ML SYR SUBCUT SCH (09:19)
[2018-09-05] MEDS: FOLIC ACID/VITAMIN B COMP W-C TABLET PO SCH (09:20)
[2018-09-05] MEDS: FAMOTIDINE 20MG/2ML VIAL IV SCH (09:20)
[2018-09-05] MEDS: GUAIFENESIN 200MG/10ML SUGAR FREE UDC PO PRN (09:20)
[2018-09-05] MEDS: FLUTICASONE PROPIONATE 50MCG/SPRAY BOTTLE BOTHNSTRLS SCH ×2 (09:20→21:41)
[2018-09-05] MEDS ORDERED: LORAZEPAM 1MG TABLET PO PRN (14:45)
[2018-09-05] MEDS: HYDROMORPHONE HCL/PF 2MG/ML CPJ IV PRN ×2 (16:14→21:43)
[2018-09-05] MEDS: MONTELUKAST SODIUM 10MG TABLET PO SCH (17:51)
[2018-09-05] MEDS: DOCUSATE SODIUM 100MG CAPSULE PO PRN (17:51)
[2018-09-05] MEDS: LORATADINE 10MG TABLET PO SCH (21:27)
[2018-09-05] MEDS: CINACALCET HCL 30MG TABLET PO SCH (21:27)
[2018-09-05] MEDS: IPRATROPIUM BROMIDE (0.02%) 0.5MG/2.5ML NEB HHN SCH (21:37)
[2018-09-06] VITALS: BP 130/78
[2018-09-06] MEDS: SODIUM CHLORIDE 3% FOR INH 4ML UD NEB INH SCH (00:12)
[2018-09-06] MEDS: IPRATROPIUM BROMIDE (0.02%) 0.5MG/2.5ML NEB HHN SCH ×6 (01:00→20:23)
[2018-09-06] MEDS: ARFORMOTEROL TARTRATE 15MCG/2ML NEB NEB SCH ×2 (01:01→13:57)
[2018-09-06 06:00] VITALS: BP 149/91
[2018-09-06] MEDS: SODIUM CHLORIDE 0.9% INJ 3ML FLUSH IVF SCH ×3 (06:32→21:42)
[2018-09-06] MEDS: METHYLPREDNISOLONE SOD SUCC 40 MG/ML VIAL IV SCH ×2 (06:32→17:22)
[2018-09-06 07:08] LABS: BASOPHILS % 0.3 % (0.0-2.0); EOSINOPHILS % 1.3 % (0.0-5.0); HEMATOCRIT. 28.4 % (36.0-48.0); HEMOGLOBIN. 9.7 g/dL (12.0-16.0); LYMPHOCYTES % 12.1 % (20.0-50.0); MEAN CORPUSCULAR HEMOGLOBIN 30.8 pg (28.0-32.0); MEAN CORPUSCULAR VOLUME 90.5 fL (81.0-99.0); MEAN PLATELET VOLUME 8.5 fl (7.4-10.4); MONOCYTES % 9.1 % (2.0-8.0); NEUTROPHILS % 77.2 % (40.0-76.0); PLATELET 176 x1000/uL (130-400); RED BLOOD CELL COUNT 3.14 mill/uL (4.2-5.4); RED CELL DISTRIBUTION WIDTH 16.9 % (11.6-14.6)
[2018-09-06] MEDS: DIPHENHYDRAMINE 50MG/ML VIAL IV PRN ×3 (07:43→23:59)
[2018-09-06] MEDS: LANTHANUM CARBONATE 500MG CHEW TABLET PO SCH ×3 (07:50→17:11)
[2018-09-06 08:00] VITALS: BP 177/91
[2018-09-06] MEDS: CINACALCET HCL 30MG TABLET PO SCH ×2 (08:45→17:47)
[2018-09-06] MEDS: FAMOTIDINE 20MG/2ML VIAL IV SCH (08:45)
[2018-09-06] MEDS: FOLIC ACID/VITAMIN B COMP W-C TABLET PO SCH (08:45)
[2018-09-06] MEDS: FLUTICASONE PROPIONATE 50MCG/SPRAY BOTTLE BOTHNSTRLS SCH ×2 (08:45→21:42)
[2018-09-06] MEDS: ENOXAPARIN 30MG/0.3ML SYR SUBCUT SCH (08:46)
[2018-09-06] MEDS: HYDROMORPHONE HCL/PF 2MG/ML CPJ IV PRN ×3 (09:48→23:58)
[2018-09-06] MEDS: ACETYLCYSTEINE 100MG/ML 10% VIAL 4ML INH SCH ×3 (09:57→20:23)
[2018-09-06 12:00] VITALS: BP 135/70
[2018-09-06 16:00] VITALS: BP 113/65
[2018-09-06] MEDS: MONTELUKAST SODIUM 10MG TABLET PO SCH (17:22)
[2018-09-06 20:00] VITALS: BP 125/74
[2018-09-06] MEDS: EPOETIN ALFA 4000UNITS/ML VIAL SUBCUT SCH (21:42)
[2018-09-06] MEDS: LORATADINE 10MG TABLET PO SCH (21:42)
[2018-09-07] VITALS (7 sets, daily range): BP systolic 125–168; BP diastolic 65–97
[2018-09-07] MEDS: ARFORMOTEROL TARTRATE 15MCG/2ML NEB NEB SCH ×3 (00:12→20:36)
[2018-09-07] MEDS: CEFTRIAXONE 1 G PREMIX 50 ML IV SCH (03:15)
[2018-09-07] MEDS: IPRATROPIUM BROMIDE (0.02%) 0.5MG/2.5ML NEB HHN SCH ×4 (05:00→17:35)
[2018-09-07] MEDS: SODIUM CHLORIDE 0.9% INJ 3ML FLUSH IVF SCH ×3 (05:52→22:00)
[2018-09-07] MEDS: METHYLPREDNISOLONE SOD SUCC 40 MG/ML VIAL IV SCH ×2 (05:52→17:26)
[2018-09-07] MEDS: HYDROMORPHONE HCL/PF 2MG/ML CPJ IV PRN ×3 (06:10→17:35)
[2018-09-07] MEDS: DIPHENHYDRAMINE 50MG/ML VIAL IV PRN ×3 (06:11→20:05)
[2018-09-07] MEDS: LANTHANUM CARBONATE 500MG CHEW TABLET PO SCH ×3 (07:50→17:27)
[2018-09-07] MEDS: ENOXAPARIN 30MG/0.3ML SYR SUBCUT SCH ×2 (09:00→09:20)
[2018-09-07] MEDS: GUAIFENESIN 200MG/10ML SUGAR FREE UDC PO PRN (09:19)
[2018-09-07] MEDS: FOLIC ACID/VITAMIN B COMP W-C TABLET PO SCH (09:20)
[2018-09-07] MEDS: DOCUSATE SODIUM 100MG CAPSULE PO PRN (09:20)
[2018-09-07] MEDS: CINACALCET HCL 30MG TABLET PO SCH ×2 (09:20→17:27)
[2018-09-07] MEDS: FAMOTIDINE 20MG/2ML VIAL IV SCH (09:20)
[2018-09-07] MEDS: ACETYLCYSTEINE 100MG/ML 10% VIAL 4ML INH SCH ×2 (09:22→17:35)
[2018-09-07] MEDS: SODIUM CHLORIDE 3% FOR INH 4ML UD NEB INH SCH ×2 (09:47→17:35)
[2018-09-07] MEDS ORDERED: VANCOMYCIN 2,000 MG in DEXT 5% WATER 500 ML IV SCH (11:00)
[2018-09-07 11:37] LABS: HEMATOCRIT. 31.2 % (36.0-48.0); HEMOGLOBIN. 10.5 g/dL (12.0-16.0); MEAN CORPUSCULAR HEMOGLOBIN 30.1 pg (28.0-32.0); MEAN CORPUSCULAR VOLUME 89.3 fL (81.0-99.0); MEAN PLATELET VOLUME 8.2 fl (7.4-10.4); PLATELET 208 x1000/uL (130-400); RED BLOOD CELL COUNT 3.49 mill/uL (4.2-5.4); RED CELL DISTRIBUTION WIDTH 17.4 % (11.6-14.6)
[2018-09-07 14:29] LABS: PLATELET ESTIMATE NORMAL
[2018-09-07] MEDS: MONTELUKAST SODIUM 10MG TABLET PO SCH (17:27)
[2018-09-07] MEDS: LORATADINE 10MG TABLET PO SCH (20:05)
[2018-09-08 00:30] VITALS: BP 153/79
[2018-09-08] MEDS: ACETYLCYSTEINE 100MG/ML 10% VIAL 4ML INH SCH ×4 (00:52→20:12)
[2018-09-08] MEDS: IPRATROPIUM BROMIDE (0.02%) 0.5MG/2.5ML NEB HHN SCH ×5 (00:55→20:12)
[2018-09-08] MEDS: CEFTRIAXONE 1 G PREMIX 50 ML IV SCH (03:07)
[2018-09-08 04:00] VITALS: BP 137/66
[2018-09-08] MEDS: METHYLPREDNISOLONE SOD SUCC 40 MG/ML VIAL IV SCH ×2 (06:00→17:19)
[2018-09-08] MEDS: SODIUM CHLORIDE 0.9% INJ 3ML FLUSH IVF SCH ×3 (06:01→21:05)
[2018-09-08] MEDS: DIPHENHYDRAMINE 50MG/ML VIAL IV PRN ×4 (06:15→20:50)
[2018-09-08] MEDS: HYDROMORPHONE HCL/PF 2MG/ML CPJ IV PRN ×5 (06:17→22:08)
[2018-09-08] MEDS: ARFORMOTEROL TARTRATE 15MCG/2ML NEB NEB SCH (07:59)
[2018-09-08 08:00] VITALS: BP 135/65
[2018-09-08] MEDS: ENOXAPARIN 30MG/0.3ML SYR SUBCUT SCH (09:42)
[2018-09-08] MEDS: LANTHANUM CARBONATE 500MG CHEW TABLET PO SCH ×3 (09:42→16:39)
[2018-09-08] MEDS: FOLIC ACID/VITAMIN B COMP W-C TABLET PO SCH (09:42)
[2018-09-08] MEDS: CINACALCET HCL 30MG TABLET PO SCH ×2 (09:42→17:19)
[2018-09-08] MEDS: FAMOTIDINE 20MG/2ML VIAL IV SCH (09:42)
[2018-09-08] MEDS ORDERED: LACTULOSE 20G/30ML UDC PO NR (10:33)
[2018-09-08] MEDS: AZELASTINE HCL 137MCG/SPRAY NASAL PUMP BOTHNSTRLS SCH ×2 (11:01→20:49)
[2018-09-08 12:00] VITALS: BP 156/96
[2018-09-08 16:00] VITALS: BP 151/88
[2018-09-08] MEDS: MONTELUKAST SODIUM 10MG TABLET PO SCH (17:19)
[2018-09-08 20:00] VITALS: BP 144/74
[2018-09-08] MEDS: LORATADINE 10MG TABLET PO SCH (20:49)
[2018-09-08] MEDS: ACETAMINOPHEN 650MG/20.3ML UDC GT PRN (20:50)
[2018-09-09] VITALS: BP 138/73
[2018-09-09] MEDS: ARFORMOTEROL TARTRATE 15MCG/2ML NEB NEB SCH ×3 (00:33→20:51)
[2018-09-09] MEDS: DIPHENHYDRAMINE 50MG/ML VIAL IV PRN ×5 (01:02→21:00)
[2018-09-09] MEDS: CEFTRIAXONE 1 G PREMIX 50 ML IV SCH (02:59)
[2018-09-09] MEDS: GUAIFENESIN 200MG/10ML SUGAR FREE UDC PO PRN (02:59)
[2018-09-09] MEDS: HYDROMORPHONE HCL/PF 2MG/ML CPJ IV PRN ×4 (03:00→18:27)
[2018-09-09 04:00] VITALS: BP 161/99
[2018-09-09] MEDS: METHYLPREDNISOLONE SOD SUCC 40 MG/ML VIAL IV SCH (05:01)
[2018-09-09] MEDS: SODIUM CHLORIDE 0.9% INJ 3ML FLUSH IVF SCH ×3 (05:02→22:00)
[2018-09-09] MEDS: ACETYLCYSTEINE 100MG/ML 10% VIAL 4ML INH SCH ×2 (05:47→07:55)
[2018-09-09] MEDS: IPRATROPIUM BROMIDE (0.02%) 0.5MG/2.5ML NEB HHN SCH ×5 (05:50→20:51)
[2018-09-09 08:00] VITALS: BP 141/71
[2018-09-09] MEDS: LANTHANUM CARBONATE 500MG CHEW TABLET PO SCH ×3 (08:03→16:59)
[2018-09-09] MEDS: CINACALCET HCL 30MG TABLET PO SCH ×2 (08:03→17:50)
[2018-09-09] MEDS: FAMOTIDINE 20MG/2ML VIAL IV SCH (08:59)
[2018-09-09] MEDS: ENOXAPARIN 30MG/0.3ML SYR SUBCUT SCH (08:59)
[2018-09-09] MEDS: FOLIC ACID/VITAMIN B COMP W-C TABLET PO SCH (08:59)
[2018-09-09] MEDS: DOCUSATE SODIUM 100MG CAPSULE PO PRN (08:59)
[2018-09-09] MEDS ORDERED: GUAIFENESIN/CODEINE 100-10MG/5ML UDC PO PRN (09:00)
[2018-09-09] MEDS: AZELASTINE HCL 137MCG/SPRAY NASAL PUMP BOTHNSTRLS SCH ×2 (09:06→20:59)
[2018-09-09 12:00] VITALS: BP 164/87
[2018-09-09 16:00] VITALS: BP 160/73
[2018-09-09] MEDS: MONTELUKAST SODIUM 10MG TABLET PO SCH (17:56)
[2018-09-09 20:00] VITALS: BP 115/90
[2018-09-09] MEDS: LORATADINE 10MG TABLET PO SCH (20:59)
[2018-09-10] VITALS (64 sets, daily range): BP systolic 80–165; BP diastolic 41–135
[2018-09-10] MEDS: IPRATROPIUM BROMIDE (0.02%) 0.5MG/2.5ML NEB HHN SCH ×6 (00:31→16:56)
[2018-09-10] MEDS: HYDROMORPHONE HCL/PF 2MG/ML CPJ IV PRN ×4 (01:22→20:46)
[2018-09-10] MEDS: GUAIFENESIN 200MG/10ML SUGAR FREE UDC PO PRN ×2 (01:22→21:10)
[2018-09-10] MEDS: DIPHENHYDRAMINE 50MG/ML VIAL IV PRN ×4 (01:30→20:43)
[2018-09-10] MEDS: CEFTRIAXONE 1 G PREMIX 50 ML IV SCH (05:19)
[2018-09-10] MEDS: SODIUM CHLORIDE 0.9% INJ 3ML FLUSH IVF SCH ×3 (05:20→21:12)
[2018-09-10 06:47] LABS: BASOPHILS % 0.2 % (0.0-2.0); EOSINOPHILS % 0.3 % (0.0-5.0); HEMATOCRIT. 27.7 % (36.0-48.0); HEMOGLOBIN. 9.4 g/dL (12.0-16.0); LYMPHOCYTES % 8.5 % (20.0-50.0); MEAN CORPUSCULAR HEMOGLOBIN 30.2 pg (28.0-32.0); MEAN CORPUSCULAR VOLUME 89.4 fL (81.0-99.0); MONOCYTES % 11.3 % (2.0-8.0); NEUTROPHILS % 79.7 % (40.0-76.0); PLATELET 197 x1000/uL (130-400); RED CELL DISTRIBUTION WIDTH 17.3 % (11.6-14.6)
[2018-09-10] MEDS: CINACALCET HCL 30MG TABLET PO SCH ×2 (07:50→17:22)
[2018-09-10] MEDS: LANTHANUM CARBONATE 500MG CHEW TABLET PO SCH ×3 (07:50→17:22)
[2018-09-10] MEDS ORDERED: MIDAZOLAM HCL 2 MG/2 ML VIAL IV NR (08:00)
[2018-09-10] MEDS ORDERED: MORPHINE SULFATE 4 MG/ML CPJ (NOT FOR IM USE) IV NR (08:00)
[2018-09-10] MEDS ORDERED: TETRACAINE/BENZOCAINE/BUTAMBEN 20 GM SPRAY MM ONE ×2 (08:22→09:31)
[2018-09-10] MEDS ORDERED: LIDOCAINE HCL 1% 20ML VIAL (Pyxis) INJ MC NR (08:30)
[2018-09-10] MEDS ORDERED: MIDAZOLAM HCL 5 MG/5 ML VIAL ONE (09:26)
[2018-09-10] MEDS ORDERED: FENTANYL CITRATE/PF 50MCG/ML 2ML VIAL ONE (09:26)
[2018-09-10] MEDS ORDERED: MORPHINE SULFATE 4 MG/ML CPJ (NOT FOR IM USE) IV ONE (09:28)
[2018-09-10] MEDS ORDERED: FENTANYL CITRATE/PF 50MCG/ML 2ML VIAL IV ONE (09:45)
[2018-09-10] MEDS ORDERED: MIDAZOLAM HCL 2 MG/2 ML VIAL IV PRN (09:47)
[2018-09-10] MEDS: ARFORMOTEROL TARTRATE 15MCG/2ML NEB NEB SCH ×2 (10:06→20:57)
[2018-09-10] MEDS ORDERED: LIDOCAINE HCL/PF 1% 10 MG/ML 30ML VIAL INFIL ONE (10:30)
[2018-09-10] MEDS ORDERED: LIDOCAINE HCL 2% JELLY 5ML MM NR (11:00)
[2018-09-10] MEDS: ENOXAPARIN 30MG/0.3ML SYR SUBCUT SCH (11:21)
[2018-09-10] MEDS: FAMOTIDINE 20MG/2ML VIAL IV SCH (11:21)
[2018-09-10] MEDS: AZELASTINE HCL 137MCG/SPRAY NASAL PUMP BOTHNSTRLS SCH ×2 (11:51→23:32)
[2018-09-10] MEDS: FOLIC ACID/VITAMIN B COMP W-C TABLET PO SCH (14:04)
[2018-09-10 17:09] LABS: BG BASE EXCESS 1.8 mmol/L (-2.0-2.0); BG CARBOXYHEMOGLOBIN 0.2 % (0.5-1.5); BG DEOXYHEMOGLOBIN 6.5 % (0.0-5.0); BG FRACTION INSPIRED OXYGEN 21; BG HCO3 ACT 26.9 mmol/L (22.0-26.0); BG METHEMOGLOBIN 0.1 % (0.0-1.5); BG OXYGEN SATURATION 93.5 % (92.0-98.5); BG OXYHEMOGLOBIN 93.2 % (94.0-97.0); BG PCO2 44.7 mmHg (35.0-45.0); BG PH 7.398 (7.350-7.450); BG PO2 66.8 mmHg (75.0-100.0); BG SAMPLE SITE LEFT RADIAL; BG TOTAL HEMOGLOBIN 10.3 g/dL (12.0-18.0); BG VENT MODE ROOM AIR
[2018-09-10] MEDS: MONTELUKAST SODIUM 10MG TABLET PO SCH (17:22)
[2018-09-10] MEDS: ACETAMINOPHEN 650MG/20.3ML UDC GT PRN (21:11)
[2018-09-10] MEDS: LORATADINE 10MG TABLET PO SCH (21:11)
[2018-09-11] VITALS (15 sets, daily range): BP systolic 128–175; BP diastolic 59–123
[2018-09-11] MEDS: IPRATROPIUM BROMIDE (0.02%) 0.5MG/2.5ML NEB HHN SCH ×6 (00:15→23:54)
[2018-09-11] MEDS: HYDROMORPHONE HCL/PF 2MG/ML CPJ IV PRN ×6 (00:46→23:17)
[2018-09-11] MEDS: DIPHENHYDRAMINE 50MG/ML VIAL IV PRN ×5 (00:46→18:35)
[2018-09-11] MEDS: CEFTRIAXONE 1 G PREMIX 50 ML IV SCH (03:08)
[2018-09-11] MEDS: ACETAMINOPHEN 650MG/20.3ML UDC GT PRN (04:45)
[2018-09-11 05:44] LABS: CHLORIDE 101 mEq/L (98-107)
[2018-09-11 05:47] LABS: BASOPHILS % 0.1 % (0.0-2.0); EOSINOPHILS % 3.2 % (0.0-5.0); HEMATOCRIT. 30.8 % (36.0-48.0); HEMOGLOBIN. 10.1 g/dL (12.0-16.0); LYMPHOCYTES % 17.8 % (20.0-50.0); MEAN CORPUSCULAR HEMOGLOBIN 30.1 pg (28.0-32.0); MEAN CORPUSCULAR VOLUME 91.6 fL (81.0-99.0); MEAN PLATELET VOLUME 8.2 fl (7.4-10.4); MONOCYTES % 14.2 % (2.0-8.0); NEUTROPHILS % 64.7 % (40.0-76.0); PLATELET 211 x1000/uL (130-400); RED BLOOD CELL COUNT 3.36 mill/uL (4.2-5.4); RED CELL DISTRIBUTION WIDTH 17.8 % (11.6-14.6)
[2018-09-11] MEDS: LANTHANUM CARBONATE 500MG CHEW TABLET PO SCH ×3 (06:12→17:18)
[2018-09-11] MEDS: CINACALCET HCL 30MG TABLET PO SCH ×2 (06:12→17:18)
[2018-09-11] MEDS: SODIUM CHLORIDE 0.9% INJ 3ML FLUSH IVF SCH ×3 (06:14→21:05)
[2018-09-11 08:51] LABS: BG BASE EXCESS 0.7 mmol/L (-2.0-2.0); BG CARBOXYHEMOGLOBIN 0.3 % (0.5-1.5); BG DEOXYHEMOGLOBIN 5.1 % (0.0-5.0); BG FRACTION INSPIRED OXYGEN 21; BG HCO3 ACT 25.3 mmol/L (22.0-26.0); BG METHEMOGLOBIN 0.3 % (0.0-1.5); BG OXYGEN SATURATION 94.9 % (92.0-98.5); BG OXYHEMOGLOBIN 94.3 % (94.0-97.0); BG PCO2 40.9 mmHg (35.0-45.0); BG SAMPLE SITE LEFT RADIAL; BG TOTAL HEMOGLOBIN 10.2 g/dL (12.0-18.0); BG VENT MODE ROOM AIR
[2018-09-11] MEDS: DOCUSATE SODIUM 100MG CAPSULE PO PRN (10:05)
[2018-09-11] MEDS: FOLIC ACID/VITAMIN B COMP W-C TABLET PO SCH (10:05)
[2018-09-11] MEDS: FAMOTIDINE 20MG/2ML VIAL IV SCH (10:05)
[2018-09-11] MEDS: AZELASTINE HCL 137MCG/SPRAY NASAL PUMP BOTHNSTRLS SCH ×2 (10:07→21:05)
[2018-09-11] MEDS: ENOXAPARIN 30MG/0.3ML SYR SUBCUT SCH (10:10)
[2018-09-11] MEDS: ONDANSETRON HCL 4MG/2ML INJ IV PRN (11:40)
[2018-09-11] MEDS: ARFORMOTEROL TARTRATE 15MCG/2ML NEB NEB SCH (12:12)
[2018-09-11] MEDS ORDERED: LIDOCAINE HCL/PF 1% 2ML VIAL ONE (15:14)
[2018-09-11] MEDS: MONTELUKAST SODIUM 10MG TABLET PO SCH (17:18)
[2018-09-11] MEDS: EPOETIN ALFA 4000UNITS/ML VIAL SUBCUT SCH (21:05)
[2018-09-11] MEDS: LORATADINE 10MG TABLET PO SCH (21:05)
[2018-09-12] VITALS (7 sets, daily range): BP systolic 132–188; BP diastolic 51–85
[2018-09-12] MEDS: DIPHENHYDRAMINE 50MG/ML VIAL IV PRN ×3 (01:14→21:21)
[2018-09-12] MEDS: IPRATROPIUM BROMIDE (0.02%) 0.5MG/2.5ML NEB HHN SCH ×4 (04:26→20:09)
[2018-09-12] MEDS: CEFTRIAXONE 1 G PREMIX 50 ML IV SCH (04:45)
[2018-09-12] MEDS: SODIUM CHLORIDE 0.9% INJ 3ML FLUSH IVF SCH ×3 (05:14→20:49)
[2018-09-12] MEDS: HYDROMORPHONE HCL/PF 2MG/ML CPJ IV PRN ×3 (07:04→20:33)
[2018-09-12] MEDS: CINACALCET HCL 30MG TABLET PO SCH (07:50)
[2018-09-12] MEDS: LANTHANUM CARBONATE 500MG CHEW TABLET PO SCH ×2 (07:50→11:44)
[2018-09-12] MEDS ORDERED: ALPRAZOLAM 0.5 MG TABLET PO NR (08:45)
[2018-09-12] MEDS: AZELASTINE HCL 137MCG/SPRAY NASAL PUMP BOTHNSTRLS SCH ×2 (09:00→20:32)
[2018-09-12] MEDS ORDERED: ENOXAPARIN 40MG/0.4ML SYR SUBCUT SCH (09:00)
[2018-09-12] MEDS: FOLIC ACID/VITAMIN B COMP W-C TABLET PO SCH (09:00)
[2018-09-12 09:19] LABS: BASOPHILS % 0.3 % (0.0-2.0); EOSINOPHILS % 4.8 % (0.0-5.0); HEMATOCRIT. 27.8 % (36.0-48.0); HEMOGLOBIN. 9.4 g/dL (12.0-16.0); LYMPHOCYTES % 9.9 % (20.0-50.0); MEAN CORPUSCULAR HEMOGLOBIN 30.9 pg (28.0-32.0); MEAN CORPUSCULAR VOLUME 91.1 fL (81.0-99.0); MONOCYTES % 13.7 % (2.0-8.0); NEUTROPHILS % 71.3 % (40.0-76.0); PLATELET 173 x1000/uL (130-400); RED BLOOD CELL COUNT 3.05 mill/uL (4.2-5.4); RED CELL DISTRIBUTION WIDTH 17.5 % (11.6-14.6)
[2018-09-12] MEDS: FAMOTIDINE 20MG/2ML VIAL IV SCH (09:42)
[2018-09-12] MEDS: ONDANSETRON HCL 4MG/2ML INJ IV PRN (09:42)
[2018-09-12] MEDS: GUAIFENESIN 600MG ER TABLET PO SCH ×2 (10:00→20:32)
[2018-09-12] MEDS ORDERED: ACETYLCYSTEINE 200MG/ML 20% VIAL 4ML PO SCH ×2 (11:00→21:00)
[2018-09-12] MEDS ORDERED: ALPRAZOLAM 0.5 MG TABLET PO PRN (12:00)
[2018-09-12] MEDS: GUAIFENESIN 200MG/10ML SUGAR FREE UDC PO PRN (12:31)
[2018-09-12] MEDS: ARFORMOTEROL TARTRATE 15MCG/2ML NEB NEB SCH (20:26)
[2018-09-12] MEDS: DOCUSATE SODIUM 100MG CAPSULE PO PRN (20:32)
[2018-09-12] MEDS: LORATADINE 10MG TABLET PO SCH (20:33)
== END 2018-09-12 22:50 | disposition home or self-care (01) | DRG 189 ==
LOC: ER 18:30 → EDBEDREQ 19:20 → ENRESERV 20:44 → 6WST 22:10 → MICUSO 09-10 08:23 → 6WST 09-11 15:10
PROVIDERS: ADMIT Internal Medicine Geriatric Medicine; ATTEND Internal Medicine Geriatric Medicine
PROC: 5A1D70Z Performance of Urinary Filtration, Intermittent, Less than 6 Hours Per Day (ICD-10-PCS; 2018-09-04)
PROC: 5A1D70Z Performance of Urinary Filtration, Intermittent, Less than 6 Hours Per Day (ICD-10-PCS; 2018-09-06)
PROC: 5A1D70Z Performance of Urinary Filtration, Intermittent, Less than 6 Hours Per Day (ICD-10-PCS; 2018-09-07)
PROC: 5A1D70Z Performance of Urinary Filtration, Intermittent, Less than 6 Hours Per Day (ICD-10-PCS; 2018-09-09)
PROC: 5A1D70Z Performance of Urinary Filtration, Intermittent, Less than 6 Hours Per Day (ICD-10-PCS; 2018-09-11)
PROC: 0B21XFZ Change Tracheostomy Device in Trachea, External Approach (ICD-10-PCS; principal; 2018-09-12)
PROC: 0CJS8ZZ Inspection of Larynx, Via Natural or Artificial Opening Endoscopic (ICD-10-PCS; 2018-09-12)
PROC: 5A1D70Z Performance of Urinary Filtration, Intermittent, Less than 6 Hours Per Day (ICD-10-PCS; 2018-09-12)
DX: J96.20 Acute and chronic respiratory failure, unspecified whether with hypoxia or hypercapnia (principal); N18.6 End stage renal disease; J44.0 Chronic obstructive pulmonary disease with (acute) lower respiratory infection; I13.2 Hypertensive heart and chronic kidney disease with heart failure and with stage 5 chronic kidney disease, or end stage renal disease; E46 Unspecified protein-calorie malnutrition; J44.1 Chronic obstructive pulmonary disease with (acute) exacerbation; G93.40 Encephalopathy, unspecified; I50.42 Chronic combined systolic (congestive) and diastolic (congestive) heart failure; J98.11 Atelectasis; N25.81 Secondary hyperparathyroidism of renal origin; T17.490A Other foreign object in trachea causing asphyxiation, initial encounter; Z99.2 Dependence on renal dialysis; M48.00 Spinal stenosis, site unspecified; K29.70 Gastritis, unspecified, without bleeding; M19.90 Unspecified osteoarthritis, unspecified site; J20.9 Acute bronchitis, unspecified; E66.9 Obesity, unspecified; F41.1 Generalized anxiety disorder; G47.33 Obstructive sleep apnea (adult) (pediatric); G83.9 Paralytic syndrome, unspecified; K21.9 Gastro-esophageal reflux disease without esophagitis; K59.09 Other constipation; N61.0 Mastitis without abscess; Z96.642 Presence of left artificial hip joint; N64.4 Mastodynia; D63.8 Anemia in other chronic diseases classified elsewhere; J30.9 Allergic rhinitis, unspecified; Z93.0 Tracheostomy status; Z88.5 Allergy status to narcotic agent; Z90.710 Acquired absence of both cervix and uterus; Z88.1 Allergy status to other antibiotic agents; Z88.8 Allergy status to other drugs, medicaments and biological substances; X58.XXXA Exposure to other specified factors, initial encounter; Y93.89 Activity, other specified; Y92.89 Other specified places as the place of occurrence of the external cause; Y99.8 Other external cause status; Z68.38 Body mass index [BMI] 38.0-38.9, adult
CPT/HCPCS: 36415; 36600; 71045; 71250; 76641; 80048; 80061; 80202; 80305; 82375; 82805; 83605; 83880; 84100; 84484; 87070; 92610; 93005; 93970; 94640; 96365; 96366; 96368; 99291; C1893; G0482; J0696; J0885; J1170; J1200; J1650; J2250; J2270; J2405; J2543; J2920; J2930; J3010; J3370; J3475; J3490; J7030; J7040; J7050; J7060; J7512; J7608; J7620

== ENCOUNTER → 2018-10-17 | Outpatient (CLI) | payer MEDICARE, MEDICAID ==
[~2018-10-17] MED LIST changes: +DIATR MEGLU/DIATRIZOATE SOLN 30ML ONE; +DOCU250C14 MT; +FAMO40TA70 MT; -IPRATROPIUM/ALBUTEROL 0.5-3(2.5)MG/3ML NEB INH SCH; +PULM50 NEB
[2018-10-17 13:24] LABS: BG BASE EXCESS 0.8 mmol/L (-2.0-2.0); BG DEOXYHEMOGLOBIN 6.8 % (0.0-5.0); BG FRACTION INSPIRED OXYGEN 21; BG HCO3 ACT 24.4 mmol/L (22.0-26.0); BG METHEMOGLOBIN 0.1 % (0.0-1.5); BG OXYGEN SATURATION 93.1 % (92.0-98.5); BG OXYHEMOGLOBIN 92.1 % (94.0-97.0); BG PCO2 35.2 mmHg (35.0-45.0); BG PH 7.458 (7.350-7.450); BG PO2 66.8 mmHg (75.0-100.0); BG SAMPLE SITE LEFT RADIAL; BG TOTAL HEMOGLOBIN 12.2 g/dL (12.0-18.0); BG VENT MODE ROOM AIR
== END | disposition home or self-care (01) ==
LOC: PF 12:06
PROVIDERS: ATTEND Internal Medicine Pulmonary Disease
DX: J45.902 Unspecified asthma with status asthmaticus (principal); G47.33 Obstructive sleep apnea (adult) (pediatric)
CPT/HCPCS: 36600; 82375; 82805

== ENCOUNTER 2019-01-07 17:58 | Inpatient (IN) | payer MEDICARE, MEDICAID ==
[~2019-01-07] VITALS: Ht 157.5 cm; Wt 91.6 kg
[~2019-01-07 17:58] MED LIST changes: -DIATR MEGLU/DIATRIZOATE SOLN 30ML ONE; -PULM50 NEB
[2019-01-07] MEDS ORDERED: ASPIRIN 325MG EC TABLET PO ONE (18:30)
[2019-01-07 18:52] LABS: BASOPHILS % 0.9 % (0.0-2.0); EOSINOPHILS % 5.9 % (0.0-5.0); HEMATOCRIT. 33.6 % (36.0-48.0); HEMOGLOBIN. 11.2 g/dL (12.0-16.0); MEAN CORPUSCULAR HEMOGLOBIN 28.2 pg (28.0-32.0); MEAN CORPUSCULAR VOLUME 84.7 fL (81.0-99.0); MEAN PLATELET VOLUME 7.7 fl (7.4-10.4); MONOCYTES % 11.7 % (2.0-8.0); NEUTROPHILS % 61.5 % (40.0-76.0); PLATELET 204 x1000/uL (130-400); RED BLOOD CELL COUNT 3.97 mill/uL (4.2-5.4); RED CELL DISTRIBUTION WIDTH 17.1 % (11.6-14.6)
[2019-01-07 18:57] LABS: CHLORIDE 97 mEq/L (98-107)
[2019-01-07] MEDS ORDERED: ALBUTEROL (0.083%) 2.5MG/3ML NEB HHN ONE (19:15)
[2019-01-07] MEDS ORDERED: IPRATROPIUM BROMIDE (0.02%) 0.5MG/2.5ML NEB HHN ONE (19:15)
[2019-01-07] MEDS ORDERED: CLONIDINE 0.2MG TABLET PO ONE (19:15)
[2019-01-07] MEDS ORDERED: AMLODIPINE 5MG TABLET PO ONE (19:15)
[2019-01-07] MEDS ORDERED: ONDANSETRON HCL 4MG/2ML INJ IV PRN (22:00)
[2019-01-07] MEDS ORDERED: ACETAMINOPHEN 325MG TABLET PO PRN ×2 (22:00→23:00)
[2019-01-07] MEDS ORDERED: GUAIFENESIN 200MG/10ML SUGAR FREE UDC PO PRN (22:00)
[2019-01-07] MEDS ORDERED: LORAZEPAM 0.5MG TABLET PO PRN (22:00)
[2019-01-07] MEDS ORDERED: CLONIDINE 0.1MG TABLET PO PRN ×2 (22:00→23:00)
[2019-01-07] MEDS ORDERED: MORPHINE SULFATE 4 MG/ML CPJ (NOT FOR IM USE) IV ONE (22:00)
[2019-01-07] MEDS ORDERED: MAGNESIUM/ALUMINUM HYDROXIDE/SIMETHICONE 30ML UDC PO PRN (22:00)
[2019-01-07] MEDS ORDERED: DIPHENHYDRAMINE 50MG/ML VIAL IV ONE (23:00)
[2019-01-07 23:23] LABS: CREATINE KINASE MB FRACTION < 1.0 ng/mL (0.5-3.6)
[2019-01-08] VITALS: BP 186/98
[2019-01-08] MEDS: HYDROMORPHONE HCL/PF 2MG/ML CPJ IV PRN ×6 (00:26→23:01)
[2019-01-08] MEDS: IPRATROPIUM/ALBUTEROL 0.5-3(2.5)MG/3ML NEB HHN SCH ×6 (00:49→21:10)
[2019-01-08] MEDS ORDERED: PULM50 NEB (01:05)
[2019-01-08] MEDS: GUAIFENESIN/CODEINE 100-10MG/5ML UDC PO PRN (01:21)
[2019-01-08] MEDS: DIPHENHYDRAMINE 50MG/ML VIAL IV PRN ×3 (01:21→12:20)
[2019-01-08 04:00] VITALS: BP 117/56
[2019-01-08] MEDS ORDERED: DEXTROSE 50% WATER 50ML SYRINGE IV PRN (04:30)
[2019-01-08] MEDS: OMEPRAZOLE 20MG CAPSULE EXTENDED RELEASE PO SCH (06:15)
[2019-01-08] MEDS: BLOOD SUGAR DIAGNOSTIC STRIP TEST SCH ×2 (06:16→11:57)
[2019-01-08] MEDS: INSULIN LISPRO 100 UNITS/ML SUBCUT SCH ×2 (06:33→11:57)
[2019-01-08 07:14] LABS: BASOPHILS % 0.9 % (0.0-2.0); EOSINOPHILS % 4.6 % (0.0-5.0); HEMATOCRIT. 30.5 % (36.0-48.0); HEMOGLOBIN. 10.2 g/dL (12.0-16.0); LYMPHOCYTES % 20.9 % (20.0-50.0); MEAN CORPUSCULAR HEMOGLOBIN 28.2 pg (28.0-32.0); MEAN CORPUSCULAR VOLUME 84.6 fL (81.0-99.0); MEAN PLATELET VOLUME 7.7 fl (7.4-10.4); MONOCYTES % 12.9 % (2.0-8.0); NEUTROPHILS % 60.7 % (40.0-76.0); PLATELET 160 x1000/uL (130-400); RED CELL DISTRIBUTION WIDTH 17.1 % (11.6-14.6)
[2019-01-08 07:25] LABS: CHLORIDE 97 mEq/L (98-107)
[2019-01-08 07:34] LABS: LDL CHOLESTEROL 71 mg/dL (5-100)
[2019-01-08 07:35] LABS: HDL CHOLESTEROL 56 mg/dL (40-59)
[2019-01-08 07:37] LABS: CREATINE KINASE MB FRACTION < 1.0 ng/mL (0.5-3.6)
[2019-01-08 08:00] VITALS: BP 115/67
[2019-01-08] MEDS: ENOXAPARIN 30MG/0.3ML SYR SUBCUT SCH (08:25)
[2019-01-08] MEDS: GUAIFENESIN 600MG ER TABLET PO SCH ×2 (08:25→21:41)
[2019-01-08] MEDS: FOLIC ACID/VITAMIN B COMP W-C TABLET PO SCH (08:26)
[2019-01-08] MEDS: DOCUSATE SODIUM 250MG CAPSULE PO SCH (08:26)
[2019-01-08] MEDS: AMLODIPINE 5MG TABLET PO SCH (08:26)
[2019-01-08] MEDS ORDERED: SORBITOL 70% SOLN 30ML PO PRN (08:30)
[2019-01-08] MEDS ORDERED: SORBITOL 70% SOLN 30ML PO NR (08:30)
[2019-01-08] MEDS: BUDESONIDE 0.5MG/2ML NEB HHN SCH ×2 (12:00→21:13)
[2019-01-08] MEDS ORDERED: AURYXIA 210 MG PO SCH (12:40)
[2019-01-08 13:47] LABS: CLARITY URINE CLOUDY (CLEAR); COLOR URINE YELLOW (YELLOW); KETONES URINE NEGATIVE (NEGATIVE); LEUKOCYTE ESTERASE URINE NEGATIVE (NEGATIVE); NITRITE URINE NEGATIVE (NEGATIVE); OCCULT BLOOD URINE NEGATIVE (NEGATIVE); PH URINE 8.5 (4.5-8.0); PROTEIN URINE 2+ (NEGATIVE); SPECIFIC GRAVITY URINE 1.005 (1.005-1.030); UROBILINOGEN URINE 0.2 E.U./dL (0.2-1.0)
[2019-01-08 13:48] VITALS: BP 139/76
[2019-01-08] MEDS: CINACALCET HCL 30MG TABLET PO SCH ×2 (13:48→17:36)
[2019-01-08 16:00] VITALS: BP 118/67
[2019-01-08] MEDS ORDERED: MONTELUKAST SODIUM 10MG TABLET PO SCH (17:00)
[2019-01-08] MEDS ORDERED: ASPIRIN 81MG EC TABLET PO SCH (18:00)
[2019-01-08] MEDS ORDERED: HYDROCODONE/ACETAMINOPHEN 10/325MG TABLET PO PRN (18:15)
[2019-01-08] MEDS ORDERED: HYDROCODONE/ACETAMINOPHEN 10/325MG TABLET PO NR (18:15)
[2019-01-08 20:00] VITALS: BP 125/71
[2019-01-08] MEDS: DIPHENHYDRAMINE 50MG CAPSULE PO PRN (21:41)
[2019-01-09] VITALS: BP 121/82
[2019-01-09] MEDS: ACETYLCYSTEINE 100MG/ML 10% VIAL 4ML INH SCH ×2 (01:05→07:59)
[2019-01-09] MEDS: IPRATROPIUM/ALBUTEROL 0.5-3(2.5)MG/3ML NEB HHN SCH ×3 (01:06→07:59)
[2019-01-09 04:00] VITALS: BP 153/80
[2019-01-09] MEDS: HYDROMORPHONE HCL/PF 2MG/ML CPJ IV PRN (04:09)
[2019-01-09] MEDS: DIPHENHYDRAMINE 50MG CAPSULE PO PRN (04:09)
[2019-01-09] MEDS: OMEPRAZOLE 20MG CAPSULE EXTENDED RELEASE PO SCH (06:14)
[2019-01-09 07:07] LABS: HEMATOCRIT. 32.2 % (36.0-48.0); HEMOGLOBIN. 10.3 g/dL (12.0-16.0); MEAN CORPUSCULAR HEMOGLOBIN 28.3 pg (28.0-32.0); MEAN CORPUSCULAR VOLUME 88.5 fL (81.0-99.0); MEAN PLATELET VOLUME 7.7 fl (7.4-10.4); PLATELET 149 x1000/uL (130-400); RED BLOOD CELL COUNT 3.64 mill/uL (4.2-5.4); RED CELL DISTRIBUTION WIDTH 17.9 % (11.6-14.6)
[2019-01-09 07:13] LABS: PHOSPHORUS 6.2 mg/dL (2.5-4.9)
[2019-01-09] MEDS: BUDESONIDE 0.5MG/2ML NEB HHN SCH (07:59)
[2019-01-09 08:00] VITALS: BP 143/68
[2019-01-09] MEDS: GUAIFENESIN/CODEINE 100-10MG/5ML UDC PO PRN (08:05)
[2019-01-09] MEDS: CINACALCET HCL 30MG TABLET PO SCH (08:21)
[2019-01-09] MEDS: AMLODIPINE 5MG TABLET PO SCH (08:53)
[2019-01-09] MEDS: GUAIFENESIN 600MG ER TABLET PO SCH (08:53)
[2019-01-09] MEDS: DOCUSATE SODIUM 250MG CAPSULE PO SCH (08:53)
[2019-01-09] MEDS: FOLIC ACID/VITAMIN B COMP W-C TABLET PO SCH (08:53)
[2019-01-09] MEDS: ENOXAPARIN 30MG/0.3ML SYR SUBCUT SCH (08:54)
[2019-01-09] MEDS ORDERED: LIDOCAINE 5% PATCH TOP SCH (09:00)
[2019-01-09 11:00] LABS: PLATELET ESTIMATE NORMAL
[2019-01-09 12:00] VITALS: BP 130/71
[2019-01-09] MEDS ORDERED: EPOETIN ALFA 4000UNITS/ML VIAL SUBCUT SCH (21:00)
== END 2019-01-09 13:10 | disposition home or self-care (01) | DRG 189 ==
LOC: ER 17:58 → 8WST 20:00 → EDBEDREQ 20:25 → EDBEDREQTM 20:25 → ENRESERV 21:44 → EDBEDREQ 22:53 → EDBEDREQTM 22:53
PROVIDERS: ADMIT Internal Medicine Geriatric Medicine; ATTEND Internal Medicine Geriatric Medicine
DX: J96.20 Acute and chronic respiratory failure, unspecified whether with hypoxia or hypercapnia (principal); N18.6 End stage renal disease; I13.2 Hypertensive heart and chronic kidney disease with heart failure and with stage 5 chronic kidney disease, or end stage renal disease; J44.1 Chronic obstructive pulmonary disease with (acute) exacerbation; I50.42 Chronic combined systolic (congestive) and diastolic (congestive) heart failure; N25.81 Secondary hyperparathyroidism of renal origin; D63.1 Anemia in chronic kidney disease; E66.01 Morbid (severe) obesity due to excess calories; R73.9 Hyperglycemia, unspecified; B19.20 Unspecified viral hepatitis C without hepatic coma; R07.81 Pleurodynia; R07.89 Other chest pain; F41.1 Generalized anxiety disorder; G47.33 Obstructive sleep apnea (adult) (pediatric); G58.8 Other specified mononeuropathies; G89.4 Chronic pain syndrome; K59.09 Other constipation; M19.90 Unspecified osteoarthritis, unspecified site; K21.9 Gastro-esophageal reflux disease without esophagitis; Z96.642 Presence of left artificial hip joint; M48.00 Spinal stenosis, site unspecified; Z90.49 Acquired absence of other specified parts of digestive tract; Z90.710 Acquired absence of both cervix and uterus; Z93.0 Tracheostomy status; Z99.2 Dependence on renal dialysis; Z99.81 Dependence on supplemental oxygen; Z68.36 Body mass index [BMI] 36.0-36.9, adult; Z88.1 Allergy status to other antibiotic agents; Z88.8 Allergy status to other drugs, medicaments and biological substances; Z79.899 Other long term (current) drug therapy
CPT/HCPCS: 36415; 71045; 78580; 80048; 80061; 82553; 82962; 83880; 84100; 84484; 93005; 93306; 93970; 94640; 96374; 96375; 99285; J1170; J1200; J1650; J2270; J2405; J7608; J7620; J7626; Q0163

== ENCOUNTER 2019-03-28 12:51 | Inpatient (IN) | payer MEDICARE, MEDICAID ==
[~2019-03-28] VITALS: Ht 157.5 cm; Wt 99.6 kg
[~2019-03-28 12:51] MED LIST changes: +PULM50 NEB
[2019-03-28] MEDS ORDERED: METHYLPREDNISOLONE SOD SUCC 125 MG/2 ML VIAL IV STA (13:00)
[2019-03-28] MEDS ORDERED: IPRATROPIUM BROMIDE (0.02%) 0.5MG/2.5ML NEB HHN STA (13:00)
[2019-03-28] MEDS ORDERED: ALBUTEROL (0.083%) 2.5MG/3ML NEB HHN STA (13:00)
[2019-03-28 13:30] LABS: BASOPHILS % 0.7 % (0.0-2.0); EOSINOPHILS % 6.1 % (0.0-5.0); HEMATOCRIT. 32.2 % (36.0-48.0); HEMOGLOBIN. 10.9 g/dL (12.0-16.0); MEAN CORPUSCULAR HEMOGLOBIN 29.2 pg (28.0-32.0); MEAN CORPUSCULAR VOLUME 86.2 fL (81.0-99.0); MEAN PLATELET VOLUME 7.3 fl (7.4-10.4); MONOCYTES % 11.6 % (2.0-8.0); NEUTROPHILS % 67.6 % (40.0-76.0); PLATELET 192 x1000/uL (130-400); RED BLOOD CELL COUNT 3.74 mill/uL (4.2-5.4); RED CELL DISTRIBUTION WIDTH 17.4 % (11.6-14.6)
[2019-03-28 13:33] LABS: CHLORIDE 99 mEq/L (98-107)
[2019-03-28 13:36] LABS: PARTIAL THROMBOPLASTIN TIME 30.3 sec (23.4-31.0); PROTHROMBIN TIME 10.5 sec (9.6-11.0)
[2019-03-28 14:12] LABS: BG BASE EXCESS 3.4 mmol/L (-2.0-2.0); BG CARBOXYHEMOGLOBIN 0.3 % (0.5-1.5); BG DEOXYHEMOGLOBIN 1.8 % (0.0-5.0); BG FRACTION INSPIRED OXYGEN 35; BG HCO3 ACT 25.7 mmol/L (22.0-26.0); BG METHEMOGLOBIN 0.1 % (0.0-1.5); BG OXYGEN SATURATION 98.2 % (92.0-98.5); BG OXYHEMOGLOBIN 97.8 % (94.0-97.0); BG PCO2 31.2 mmHg (35.0-45.0); BG PH 7.533 (7.350-7.450); BG SAMPLE SITE LEFT BRACHIAL; BG TOTAL HEMOGLOBIN 11.2 g/dL (12.0-18.0); BG VENT MODE T-TUBE
[2019-03-28] MEDS ORDERED: MORPHINE SULFATE 4 MG/ML CPJ (NOT FOR IM USE) IV STA (14:31)
[2019-03-28] MEDS ORDERED: ONDANSETRON HCL 4MG/2ML INJ IV STA (14:31)
[2019-03-28] MEDS ORDERED: ALBUTEROL (0.083%) 2.5MG/3ML NEB HHN ONE (16:00)
[2019-03-28] MEDS: CLONIDINE 0.1MG TABLET PO PRN (19:21)
[2019-03-28 21:30] VITALS: BP 144/91
[2019-03-28 22:00] VITALS: BP 165/98
[2019-03-28] MEDS ORDERED: ALBUTEROL (0.083%) 2.5MG/3ML NEB HHN NR (22:45)
[2019-03-28] MEDS: HYDROCODONE/ACETAMINOPHEN 5/325MG TABLET PO PRN (23:23)
[2019-03-28] MEDS: METHYLPREDNISOLONE SOD SUCC 40 MG/ML VIAL IV SCH (23:23)
[2019-03-28] MEDS: DIPHENHYDRAMINE 50MG/ML VIAL IV PRN (23:24)
[2019-03-28 23:52] VITALS: BP 147/84
[2019-03-29] VITALS (10 sets, daily range): BP systolic 131–168; BP diastolic 65–88
[2019-03-29] MEDS: METHYLPREDNISOLONE SOD SUCC 40 MG/ML VIAL IV SCH ×3 (06:04→21:44)
[2019-03-29 06:26] LABS: BASOPHILS % 0.2 % (0.0-2.0); HEMATOCRIT. 30.3 % (36.0-48.0); HEMOGLOBIN. 10.3 g/dL (12.0-16.0); LYMPHOCYTES % 8.9 % (20.0-50.0); MEAN CORPUSCULAR HEMOGLOBIN 29.5 pg (28.0-32.0); MEAN CORPUSCULAR VOLUME 86.7 fL (81.0-99.0); MEAN PLATELET VOLUME 7.8 fl (7.4-10.4); MONOCYTES % 3.5 % (2.0-8.0); NEUTROPHILS % 87.4 % (40.0-76.0); PLATELET 191 x1000/uL (130-400); RED BLOOD CELL COUNT 3.49 mill/uL (4.2-5.4); RED CELL DISTRIBUTION WIDTH 17.2 % (11.6-14.6)
[2019-03-29] MEDS: CLONIDINE 0.1MG TABLET PO PRN (07:31)
[2019-03-29 07:51] LABS: BG BASE EXCESS 2.1 mmol/L (-2.0-2.0); BG CARBOXYHEMOGLOBIN 0.3 % (0.5-1.5); BG HCO3 ACT 27.3 mmol/L (22.0-26.0); BG METHEMOGLOBIN 0.1 % (0.0-1.5); BG OXYHEMOGLOBIN 94.6 % (94.0-97.0); BG PCO2 44.7 mmHg (35.0-45.0); BG PH 7.403 (7.350-7.450); BG PO2 78.7 mmHg (75.0-100.0); BG SAMPLE SITE LEFT RADIAL; BG TOTAL HEMOGLOBIN 10.6 g/dL (12.0-18.0); BG VENT MODE TRACH T-TUBE
[2019-03-29] MEDS: HYDROCODONE/ACETAMINOPHEN 5/325MG TABLET PO PRN (08:55)
[2019-03-29] MEDS: ENOXAPARIN 40MG/0.4ML SYR SUBCUT SCH (08:55)
[2019-03-29] MEDS ORDERED: LIDOCAINE HCL/PF 1% 2ML VIAL ONE (13:18)
[2019-03-29] MEDS: MORPHINE SULFATE 2 MG/ML CPJ (NOT FOR IM USE) IV PRN ×2 (15:26→19:52)
[2019-03-29] MEDS: IPRATROPIUM/ALBUTEROL 0.5-3(2.5)MG/3ML NEB HHN SCH ×2 (16:21→21:02)
[2019-03-29] MEDS: DIPHENHYDRAMINE 50MG/ML VIAL IV PRN ×2 (16:47→22:51)
[2019-03-29] MEDS: GUAIFENESIN/CODEINE 200-20MG/10ML UDC PO PRN (21:53)
[2019-03-30] VITALS (13 sets, daily range): BP systolic 127–179; BP diastolic 54–106
[2019-03-30] MEDS: IPRATROPIUM/ALBUTEROL 0.5-3(2.5)MG/3ML NEB HHN SCH ×6 (00:51→20:42)
[2019-03-30] MEDS: GUAIFENESIN/CODEINE 200-20MG/10ML UDC PO PRN ×2 (05:50→20:37)
[2019-03-30] MEDS: METHYLPREDNISOLONE SOD SUCC 40 MG/ML VIAL IV SCH ×3 (05:50→21:42)
[2019-03-30] MEDS: MORPHINE SULFATE 2 MG/ML CPJ (NOT FOR IM USE) IV PRN ×4 (05:51→20:38)
[2019-03-30] MEDS: DIPHENHYDRAMINE 50MG/ML VIAL IV PRN ×3 (06:21→20:37)
[2019-03-30 09:32] LABS: BG BASE EXCESS 0.7 mmol/L (-2.0-2.0); BG CARBOXYHEMOGLOBIN 0.3 % (0.5-1.5); BG DEOXYHEMOGLOBIN 7.5 % (0.0-5.0); BG FRACTION INSPIRED OXYGEN 35; BG HCO3 ACT 25.2 mmol/L (22.0-26.0); BG METHEMOGLOBIN 0.3 % (0.0-1.5); BG OXYGEN SATURATION 92.5 % (92.0-98.5); BG OXYHEMOGLOBIN 91.9 % (94.0-97.0); BG PH 7.417 (7.350-7.450); BG PO2 66.3 mmHg (75.0-100.0); BG SAMPLE SITE LEFT BRACHIAL; BG TOTAL HEMOGLOBIN 11.2 g/dL (12.0-18.0); BG VENT MODE MASK - TRACH
[2019-03-30 10:30] LABS: HEMATOCRIT. 33.1 % (36.0-48.0); HEMOGLOBIN. 10.8 g/dL (12.0-16.0); MEAN CORPUSCULAR HEMOGLOBIN 28.9 pg (28.0-32.0); MEAN CORPUSCULAR VOLUME 88.3 fL (81.0-99.0); PLATELET 206 x1000/uL (130-400); RED BLOOD CELL COUNT 3.75 mill/uL (4.2-5.4); RED CELL DISTRIBUTION WIDTH 17.7 % (11.6-14.6)
[2019-03-30] MEDS: ENOXAPARIN 40MG/0.4ML SYR SUBCUT SCH (10:34)
[2019-03-30] MEDS ORDERED: NEOAPJ IM (13:35)
[2019-03-30] MEDS ORDERED: AMLO10TA80 PO (13:35)
[2019-03-30] MEDS ORDERED: HYDR-4135 MT (13:40)
[2019-03-30] MEDS: CLONIDINE 0.1MG TABLET PO PRN (17:36)
[2019-03-30 20:17] LABS: PLATELET ESTIMATE NORMAL
[2019-03-30] MEDS: AMLODIPINE 10MG TABLET PO SCH (21:00)
[2019-03-30] MEDS: GUAIFENESIN 600MG ER TABLET PO SCH (21:42)
[2019-03-31] VITALS (15 sets, daily range): BP systolic 104–153; BP diastolic 48–96
[2019-03-31] MEDS: IPRATROPIUM/ALBUTEROL 0.5-3(2.5)MG/3ML NEB HHN SCH ×5 (00:30→20:53)
[2019-03-31] MEDS: METHYLPREDNISOLONE SOD SUCC 40 MG/ML VIAL IV SCH ×3 (06:00→22:10)
[2019-03-31] MEDS: DIPHENHYDRAMINE 50MG/ML VIAL IV PRN ×4 (06:00→22:19)
[2019-03-31] MEDS: MORPHINE SULFATE 2 MG/ML CPJ (NOT FOR IM USE) IV PRN ×3 (06:01→22:20)
[2019-03-31 06:42] LABS: HEMATOCRIT. 32.7 % (36.0-48.0); HEMOGLOBIN. 10.9 g/dL (12.0-16.0); MEAN CORPUSCULAR HEMOGLOBIN 29.2 pg (28.0-32.0); MEAN PLATELET VOLUME 8.2 fl (7.4-10.4); PLATELET 198 x1000/uL (130-400); RED BLOOD CELL COUNT 3.72 mill/uL (4.2-5.4); RED CELL DISTRIBUTION WIDTH 17.7 % (11.6-14.6)
[2019-03-31] MEDS: ENOXAPARIN 40MG/0.4ML SYR SUBCUT SCH (08:51)
[2019-03-31] MEDS: AMLODIPINE 10MG TABLET PO SCH (08:54)
[2019-03-31] MEDS: GUAIFENESIN 600MG ER TABLET PO SCH ×2 (08:55→22:13)
[2019-03-31 12:57] LABS: PLATELET ESTIMATE NORMAL
[2019-03-31 16:58] LABS: BG BASE EXCESS 0.3 mmol/L (-2.0-2.0); BG CARBOXYHEMOGLOBIN 0.2 % (0.5-1.5); BG DEOXYHEMOGLOBIN 12.5 % (0.0-5.0); BG HCO3 ACT 24.7 mmol/L (22.0-26.0); BG METHEMOGLOBIN 0.2 % (0.0-1.5); BG OXYGEN SATURATION 87.4 % (92.0-98.5); BG OXYHEMOGLOBIN 87.1 % (94.0-97.0); BG PCO2 39.1 mmHg (35.0-45.0); BG PH 7.419 (7.350-7.450); BG PO2 53.4 mmHg (75.0-100.0); BG SAMPLE SITE LEFT BRACHIAL; BG TOTAL HEMOGLOBIN 12.1 g/dL (12.0-18.0); BG VENT MODE ROOM AIR
[2019-03-31] MEDS: ACETAMINOPHEN 325MG TABLET PO PRN ×2 (18:10→22:11)
[2019-03-31] MEDS: CLONIDINE 0.1MG TABLET PO PRN (19:04)
[2019-04-01] VITALS (32 sets, daily range): BP systolic 61–167; BP diastolic 41–109
[2019-04-01] MEDS: IPRATROPIUM/ALBUTEROL 0.5-3(2.5)MG/3ML NEB HHN SCH ×6 (00:57→20:00)
[2019-04-01] MEDS: METHYLPREDNISOLONE SOD SUCC 40 MG/ML VIAL IV SCH ×2 (06:32→14:31)
[2019-04-01 07:54] LABS: BG BASE EXCESS -3.2 mmol/L (-2.0-2.0); BG CARBOXYHEMOGLOBIN 0.1 % (0.5-1.5); BG DEOXYHEMOGLOBIN 4.1 % (0.0-5.0); BG FRACTION INSPIRED OXYGEN 35; BG HCO3 ACT 21.6 mmol/L (22.0-26.0); BG METHEMOGLOBIN 0.2 % (0.0-1.5); BG OXYGEN SATURATION 95.9 % (92.0-98.5); BG OXYHEMOGLOBIN 95.6 % (94.0-97.0); BG PCO2 37.9 mmHg (35.0-45.0); BG PH 7.374 (7.350-7.450); BG PO2 85.7 mmHg (75.0-100.0); BG SAMPLE SITE LEFT BRACHIAL; BG TOTAL HEMOGLOBIN 12.1 g/dL (12.0-18.0); BG VENT MODE MASK - AEROSOL
[2019-04-01] MEDS: AMLODIPINE 10MG TABLET PO SCH (09:13)
[2019-04-01] MEDS: GUAIFENESIN 600MG ER TABLET PO SCH ×2 (09:13→21:07)
[2019-04-01] MEDS: ENOXAPARIN 40MG/0.4ML SYR SUBCUT SCH (09:14)
[2019-04-01] MEDS: DIPHENHYDRAMINE 50MG/ML VIAL IV PRN ×2 (09:14→21:07)
[2019-04-01] MEDS: MORPHINE SULFATE 2 MG/ML CPJ (NOT FOR IM USE) IV PRN ×3 (09:15→22:52)
[2019-04-01] MEDS: PREDNISONE 20MG TABLET PO SCH (15:58)
[2019-04-02] VITALS (20 sets, daily range): BP systolic 114–165; BP diastolic 68–96
[2019-04-02 07:11] LABS: HEMATOCRIT. 34.6 % (36.0-48.0); HEMOGLOBIN. 11.6 g/dL (12.0-16.0); MEAN CORPUSCULAR HEMOGLOBIN 29.2 pg (28.0-32.0); MEAN CORPUSCULAR VOLUME 87.2 fL (81.0-99.0); MEAN PLATELET VOLUME 7.7 fl (7.4-10.4); PLATELET 224 x1000/uL (130-400); RED BLOOD CELL COUNT 3.97 mill/uL (4.2-5.4); RED CELL DISTRIBUTION WIDTH 17.7 % (11.6-14.6)
[2019-04-02] MEDS: IPRATROPIUM/ALBUTEROL 0.5-3(2.5)MG/3ML NEB HHN SCH ×3 (08:05→16:40)
[2019-04-02] MEDS: AMLODIPINE 10MG TABLET PO SCH (08:36)
[2019-04-02] MEDS: ENOXAPARIN 40MG/0.4ML SYR SUBCUT SCH (08:36)
[2019-04-02] MEDS: PREDNISONE 20MG TABLET PO SCH (08:36)
[2019-04-02] MEDS: ONDANSETRON HCL 4MG/2ML INJ IV PRN ×2 (08:37→17:47)
[2019-04-02] MEDS: GUAIFENESIN 600MG ER TABLET PO SCH (08:37)
[2019-04-02] MEDS: DIPHENHYDRAMINE 50MG/ML VIAL IV PRN ×2 (09:02→17:03)
[2019-04-02] MEDS ORDERED: PANTOPRAZOLE 40MG DR TABLET PO SCH (12:38)
[2019-04-02] MEDS: MORPHINE SULFATE 2 MG/ML CPJ (NOT FOR IM USE) IV PRN ×2 (13:21→17:58)
[2019-04-02 16:23] LABS: PLATELET ESTIMATE NORMAL
[2019-04-02] MEDS ORDERED: LACTULOSE 20G/30ML UDC PO NR (16:26)
== END 2019-04-02 19:30 | disposition home or self-care (01) | DRG 205 ==
LOC: ER 12:51 → 5EST 16:05 → EDBEDREQTM 16:08 → EDBEDREQ 16:08 → ENRESERV 19:35 → 5EST 22:25
PROVIDERS: ADMIT Internal Medicine Nephrology; ATTEND Internal Medicine Nephrology
PROC: 5A1D70Z Performance of Urinary Filtration, Intermittent, Less than 6 Hours Per Day (ICD-10-PCS; principal; 2019-03-29)
PROC: 5A1D70Z Performance of Urinary Filtration, Intermittent, Less than 6 Hours Per Day (ICD-10-PCS; 2019-03-30)
PROC: 5A1D70Z Performance of Urinary Filtration, Intermittent, Less than 6 Hours Per Day (ICD-10-PCS; 2019-04-01)
DX: J95.03 Malfunction of tracheostomy stoma (principal); J96.21 Acute and chronic respiratory failure with hypoxia; N18.6 End stage renal disease; E87.1 Hypo-osmolality and hyponatremia; E66.2 Morbid (severe) obesity with alveolar hypoventilation; J44.1 Chronic obstructive pulmonary disease with (acute) exacerbation; I13.0 Hypertensive heart and chronic kidney disease with heart failure and stage 1 through stage 4 chronic kidney disease, or unspecified chronic kidney disease; E87.3 Alkalosis; E87.5 Hyperkalemia; R73.9 Hyperglycemia, unspecified; E78.00 Pure hypercholesterolemia, unspecified; D63.1 Anemia in chronic kidney disease; K21.9 Gastro-esophageal reflux disease without esophagitis; F41.9 Anxiety disorder, unspecified; Y83.8 Other surgical procedures as the cause of abnormal reaction of the patient, or of later complication, without mention of misadventure at the time of the procedure; Y82.8 Other medical devices associated with adverse incidents; D64.9 Anemia, unspecified; J38.02 Paralysis of vocal cords and larynx, bilateral; I50.9 Heart failure, unspecified; Z99.2 Dependence on renal dialysis; Z86.73 Personal history of transient ischemic attack (TIA), and cerebral infarction without residual deficits; Z88.1 Allergy status to other antibiotic agents; Z88.8 Allergy status to other drugs, medicaments and biological substances; Z90.710 Acquired absence of both cervix and uterus; Z79.899 Other long term (current) drug therapy; Z79.51 Long term (current) use of inhaled steroids; Z90.49 Acquired absence of other specified parts of digestive tract; Z96.642 Presence of left artificial hip joint
CPT/HCPCS: 36415; 36600; 71045; 78580; 80048; 82375; 82805; 83605; 83880; 84145; 84484; 87070; 87077; 87186; 94640; 97163; 97530; 99285; J1200; J1650; J2270; J2405; J2920; J2930; J3490; J7512; J7611; J7620

== ENCOUNTER 2019-04-21 10:44 | Inpatient (IN) | payer MEDICARE, MEDICAID ==
[2019-04-21] VITALS (9 sets, daily range): BP systolic 143–181; BP diastolic 82–101
[~2019-04-21] VITALS: Ht 157.5 cm; Wt 93.9 kg
[~2019-04-21 10:44] MED LIST changes: +AMLO10TA80 PO; +HYDR-4135 MT
[2019-04-21] MEDS ORDERED: METHYLPREDNISOLONE SOD SUCC 125 MG/2 ML VIAL IV STA (11:09)
[2019-04-21] MEDS ORDERED: ALBUTEROL (0.083%) 2.5MG/3ML NEB HHN STA (11:09)
[2019-04-21] MEDS ORDERED: IPRATROPIUM BROMIDE (0.02%) 0.5MG/2.5ML NEB HHN STA (11:09)
[2019-04-21] MEDS ORDERED: HYDRALAZINE 20MG/ML VIAL IV ONE (11:15)
[2019-04-21] MEDS ORDERED: PIPERACILLIN/TAZ 3.375G PREMIX 50 ML IV ONE (12:00)
[2019-04-21] MEDS ORDERED: VANCOMYCIN 1 G PREMIX 200 ML IV SCH (12:00)
[2019-04-21] MEDS ORDERED: ONDANSETRON HCL 4MG/2ML INJ IV ONE (12:00)
[2019-04-21] MEDS ORDERED: MORPHINE SULFATE 4 MG/ML CPJ (NOT FOR IM USE) IV ONE (12:00)
[2019-04-21] MEDS ORDERED: DIPHENHYDRAMINE 50MG/ML VIAL IV ONE (12:00)
[2019-04-21 12:13] LABS: CHLORIDE 97 mEq/L (98-107)
[2019-04-21 12:19] LABS: PHOSPHORUS 4.4 mg/dL (2.5-4.9)
[2019-04-21] MEDS: IPRATROPIUM/ALBUTEROL 0.5-3(2.5)MG/3ML NEB HHN SCH ×2 (13:15→20:55)
[2019-04-21 13:35] LABS: BG CARBOXYHEMOGLOBIN 0.9 % (0.5-1.5); BG DEOXYHEMOGLOBIN 4.4 % (0.0-5.0); BG HCO3 ACT 26.2 mmol/L (22.0-26.0); BG METHEMOGLOBIN 0.1 % (0.0-1.5); BG OXYGEN SATURATION 95.6 % (92.0-98.5); BG OXYHEMOGLOBIN 94.6 % (94.0-97.0); BG PCO2 39.3 mmHg (35.0-45.0); BG PH 7.442 (7.350-7.450); BG PO2 82.5 mmHg (75.0-100.0); BG SAMPLE SITE LEFT BRACHIAL; BG TOTAL HEMOGLOBIN 12.1 g/dL (12.0-18.0); BG VENT MODE MASK - TRACH
[2019-04-21 14:28] LABS: BASOPHILS % 0.7 % (0.0-2.0); EOSINOPHILS % 3.3 % (0.0-5.0); HEMOGLOBIN. 10.1 g/dL (12.0-16.0); LYMPHOCYTES % 10.6 % (20.0-50.0); MEAN CORPUSCULAR HEMOGLOBIN 29.5 pg (28.0-32.0); MEAN CORPUSCULAR VOLUME 87.9 fL (81.0-99.0); MEAN PLATELET VOLUME 8.1 fl (7.4-10.4); NEUTROPHILS % 77.4 % (40.0-76.0); PLATELET 218 x1000/uL (130-400); RED BLOOD CELL COUNT 3.42 mill/uL (4.2-5.4); RED CELL DISTRIBUTION WIDTH 18.4 % (11.6-14.6)
[2019-04-21 14:35] LABS: PROTHROMBIN TIME 10.5 sec (9.6-11.0)
[2019-04-21] MEDS ORDERED: ALPRAZOLAM 0.5 MG TABLET PO PRN (15:00)
[2019-04-21] MEDS ORDERED: HYDROCODONE/ACETAMINOPHEN 10/325MG TABLET PO PRN (15:00)
[2019-04-21] MEDS ORDERED: CLONIDINE 0.1MG TABLET PO PRN (15:00)
[2019-04-21] MEDS ORDERED: ACETAMINOPHEN 325MG TABLET PO PRN (15:00)
[2019-04-21] MEDS: AMLODIPINE 10MG TABLET PO SCH (15:46)
[2019-04-21] MEDS: HYDRALAZINE HCL 100MG TABLET PO SCH ×2 (15:47→21:37)
[2019-04-21] MEDS: DIPHENHYDRAMINE 50MG CAPSULE PO PRN (17:04)
[2019-04-21] MEDS: MONTELUKAST SODIUM 10MG TABLET PO SCH (17:50)
[2019-04-21] MEDS ORDERED: GUAIFENESIN/CODEINE 200-20MG/10ML UDC PO PRN (18:00)
[2019-04-21] MEDS ORDERED: REVE175V IH (18:01)
[2019-04-21] MEDS: METHYLPREDNISOLONE SOD SUCC 125 MG/2 ML VIAL IV SCH (18:58)
[2019-04-21] MEDS ORDERED: FAMOTIDINE 20MG TABLET PO SCH (21:00)
[2019-04-21] MEDS: TEMAZEPAM 15MG CAPSULE PO PRN (21:38)
[2019-04-21] MEDS: GUAIFENESIN 600MG ER TABLET PO SCH (21:38)
[2019-04-21] MEDS: FAMOTIDINE 20MG TABLET PO SCH (21:39)
[2019-04-21] MEDS ORDERED: IPRATROPIUM BROMIDE (0.02%) 0.5MG/2.5ML NEB HHN SCH (22:45)
[2019-04-22] VITALS (8 sets, daily range): BP systolic 115–152; BP diastolic 61–97
[2019-04-22] MEDS ORDERED: HYDROMORPHONE HCL/PF 2MG/ML CPJ IV SCH
[2019-04-22] MEDS: IPRATROPIUM BROMIDE (0.02%) 0.5MG/2.5ML NEB HHN SCH ×6 (00:30→21:07)
[2019-04-22] MEDS: METHYLPREDNISOLONE SOD SUCC 125 MG/2 ML VIAL IV SCH ×3 (03:03→17:52)
[2019-04-22] MEDS: DIPHENHYDRAMINE 50MG CAPSULE PO PRN (05:46)
[2019-04-22] MEDS: HYDRALAZINE HCL 100MG TABLET PO SCH ×3 (06:06→21:55)
[2019-04-22 07:14] LABS: BASOPHILS % 0.2 % (0.0-2.0); HEMATOCRIT. 33.4 % (36.0-48.0); HEMOGLOBIN. 11.1 g/dL (12.0-16.0); LYMPHOCYTES % 9.4 % (20.0-50.0); MEAN CORPUSCULAR HEMOGLOBIN 29.5 pg (28.0-32.0); MEAN CORPUSCULAR VOLUME 88.7 fL (81.0-99.0); MONOCYTES % 6.3 % (2.0-8.0); NEUTROPHILS % 84.1 % (40.0-76.0); RED BLOOD CELL COUNT 3.77 mill/uL (4.2-5.4); RED CELL DISTRIBUTION WIDTH 18.4 % (11.6-14.6)
[2019-04-22] MEDS ORDERED: YUPELRI 175 MCG/3 ML ORI SCH (09:00)
[2019-04-22] MEDS ORDERED: NON FORMULARY PATIENT HOME MED ORI SCH ×2 (09:00)
[2019-04-22] MEDS ORDERED: NON FORMULARY PATIENT HOME MED XX SCH (09:00)
[2019-04-22] MEDS: AMLODIPINE 10MG TABLET PO SCH (09:26)
[2019-04-22] MEDS: CINACALCET HCL 30MG TABLET PO SCH (09:26)
[2019-04-22] MEDS: GUAIFENESIN 600MG ER TABLET PO SCH ×2 (09:26→21:54)
[2019-04-22] MEDS: FOLIC ACID/VITAMIN B COMP W-C TABLET PO SCH (09:26)
[2019-04-22] MEDS: FAMOTIDINE 20MG TABLET PO SCH (09:26)
[2019-04-22] MEDS: DOCUSATE SODIUM 250MG CAPSULE PO SCH (09:26)
[2019-04-22] MEDS ORDERED: SODIUM POLYSTYRENE SULFONATE 15 G/60 ML BOT PO NR (10:30)
[2019-04-22] MEDS: DIPHENHYDRAMINE 50MG/ML VIAL IV PRN ×2 (11:15→17:52)
[2019-04-22] MEDS: HYDROMORPHONE HCL/PF 2MG/ML CPJ IV PRN ×4 (11:15→22:09)
[2019-04-22 16:42] LABS: MEAN PLATELET VOLUME 8.1 fl (7.4-10.4); PLATELET 218 x1000/uL (130-400)
[2019-04-22] MEDS: AZITHROMYCIN 500 MG in DEXT 5% WATER 250 ML IV SCH (17:19)
[2019-04-22] MEDS: MONTELUKAST SODIUM 10MG TABLET PO SCH (17:20)
[2019-04-22] MEDS: TEMAZEPAM 15MG CAPSULE PO PRN (22:05)
[2019-04-23] VITALS (20 sets, daily range): BP systolic 72–172; BP diastolic 48–126
[2019-04-23] MEDS: IPRATROPIUM BROMIDE (0.02%) 0.5MG/2.5ML NEB HHN SCH ×6 (00:50→20:37)
[2019-04-23] MEDS: DIPHENHYDRAMINE 50MG/ML VIAL IV PRN ×4 (01:16→23:37)
[2019-04-23] MEDS: METHYLPREDNISOLONE SOD SUCC 125 MG/2 ML VIAL IV SCH ×3 (03:01→20:20)
[2019-04-23] MEDS: HYDROMORPHONE HCL/PF 2MG/ML CPJ IV PRN ×4 (03:03→20:16)
[2019-04-23] MEDS: HYDRALAZINE HCL 100MG TABLET PO SCH (06:44)
[2019-04-23 07:01] LABS: HEMATOCRIT. 34.6 % (36.0-48.0); HEMOGLOBIN. 11.3 g/dL (12.0-16.0); MEAN CORPUSCULAR HEMOGLOBIN 29.4 pg (28.0-32.0); MEAN CORPUSCULAR VOLUME 89.8 fL (81.0-99.0); MEAN PLATELET VOLUME 7.8 fl (7.4-10.4); PLATELET 258 x1000/uL (130-400); RED BLOOD CELL COUNT 3.85 mill/uL (4.2-5.4); RED CELL DISTRIBUTION WIDTH 18.8 % (11.6-14.6)
[2019-04-23 08:04] LABS: PLATELET ESTIMATE NORMAL
[2019-04-23] MEDS ORDERED: NA PHOS,M-B/NA PHOS,DI-BA ENEMA 118ML PR NR (08:30)
[2019-04-23] MEDS ORDERED: SORBITOL 70% SOLN 30ML PO NR (08:30)
[2019-04-23] MEDS: CINACALCET HCL 30MG TABLET PO SCH (10:22)
[2019-04-23] MEDS: FAMOTIDINE 20MG TABLET PO SCH (10:22)
[2019-04-23] MEDS: GUAIFENESIN 600MG ER TABLET PO SCH ×2 (10:22→21:46)
[2019-04-23] MEDS: FOLIC ACID/VITAMIN B COMP W-C TABLET PO SCH (10:23)
[2019-04-23] MEDS: AMLODIPINE 5MG TABLET PO SCH (10:23)
[2019-04-23] MEDS ORDERED: DIPHENHYDRAMINE 50MG/ML VIAL ONE (10:32)
[2019-04-23] MEDS: DOCUSATE SODIUM 250MG CAPSULE PO SCH (10:40)
[2019-04-23] MEDS: AZITHROMYCIN 500 MG in DEXT 5% WATER 250 ML IV SCH (16:28)
[2019-04-23] MEDS: MONTELUKAST SODIUM 10MG TABLET PO SCH (16:29)
[2019-04-23] MEDS: HYDRALAZINE HCL 50MG TABLET PO SCH ×2 (16:29→21:47)
[2019-04-23] MEDS ORDERED: BISACODYL 10MG SUPP PR PRN (16:45)
[2019-04-23] MEDS: DIPHENHYDRAMINE 50MG CAPSULE PO PRN (20:20)
[2019-04-23] MEDS: TEMAZEPAM 15MG CAPSULE PO PRN (21:46)
[2019-04-24] VITALS (9 sets, daily range): BP systolic 100–164; BP diastolic 52–103
[2019-04-24] MEDS: IPRATROPIUM BROMIDE (0.02%) 0.5MG/2.5ML NEB HHN SCH ×4 (00:49→13:57)
[2019-04-24] MEDS: METHYLPREDNISOLONE SOD SUCC 125 MG/2 ML VIAL IV SCH (02:22)
[2019-04-24] MEDS: HYDROMORPHONE HCL/PF 2MG/ML CPJ IV PRN ×2 (04:19→12:40)
[2019-04-24] MEDS: HYDRALAZINE HCL 50MG TABLET PO SCH ×3 (06:00→14:22)
[2019-04-24 07:36] LABS: HEMOGLOBIN. 11.6 g/dL (12.0-16.0); MEAN CORPUSCULAR HEMOGLOBIN 29.4 pg (28.0-32.0); MEAN CORPUSCULAR VOLUME 88.5 fL (81.0-99.0); MEAN PLATELET VOLUME 7.5 fl (7.4-10.4); PLATELET 278 x1000/uL (130-400); RED BLOOD CELL COUNT 3.95 mill/uL (4.2-5.4); RED CELL DISTRIBUTION WIDTH 18.5 % (11.6-14.6)
[2019-04-24] MEDS: AMLODIPINE 5MG TABLET PO SCH (08:43)
[2019-04-24] MEDS: DOCUSATE SODIUM 250MG CAPSULE PO SCH (08:43)
[2019-04-24] MEDS: CINACALCET HCL 30MG TABLET PO SCH (08:43)
[2019-04-24] MEDS: FOLIC ACID/VITAMIN B COMP W-C TABLET PO SCH (08:43)
[2019-04-24] MEDS: GUAIFENESIN 600MG ER TABLET PO SCH (08:43)
[2019-04-24] MEDS: DIPHENHYDRAMINE 50MG/ML VIAL IV PRN ×2 (08:44→15:36)
[2019-04-24] MEDS: FAMOTIDINE 20MG TABLET PO SCH (09:00)
[2019-04-24] MEDS ORDERED: METHYLPREDNISOLONE SOD SUCC 40 MG/ML VIAL IV SCH (09:00)
[2019-04-24] MEDS ORDERED: SORBITOL 70% SOLN 30ML PO PRN (09:30)
[2019-04-24 09:57] LABS: PLATELET ESTIMATE NORMAL
[2019-04-24] MEDS ORDERED: SORBITOL 70% SOLN 30ML PO NR (10:15)
[2019-04-24] MEDS ORDERED: MAGNESIUM CITRATE 300ML SOLUTION PO NR (10:30)
== END 2019-04-24 17:10 | disposition home or self-care (01) | DRG 682 ==
LOC: ER 10:44 → 5EST 12:14 → EDBEDREQ 12:24 → EDBEDREQTM 12:24 → EDBEDREQSVC 13:46 → ENRESERV 13:46 → 5EST 04-23 22:00
PROVIDERS: ADMIT Internal Medicine Geriatric Medicine; ATTEND Internal Medicine Geriatric Medicine
PROC: 5A1D70Z Performance of Urinary Filtration, Intermittent, Less than 6 Hours Per Day (ICD-10-PCS; principal; 2019-04-22)
PROC: 5A1D70Z Performance of Urinary Filtration, Intermittent, Less than 6 Hours Per Day (ICD-10-PCS; 2019-04-23)
DX: I13.11 Hypertensive heart and chronic kidney disease without heart failure, with stage 5 chronic kidney disease, or end stage renal disease (principal); J96.20 Acute and chronic respiratory failure, unspecified whether with hypoxia or hypercapnia; J18.9 Pneumonia, unspecified organism; N18.6 End stage renal disease; J44.1 Chronic obstructive pulmonary disease with (acute) exacerbation; J44.0 Chronic obstructive pulmonary disease with (acute) lower respiratory infection; E87.70 Fluid overload, unspecified; E11.22 Type 2 diabetes mellitus with diabetic chronic kidney disease; F41.1 Generalized anxiety disorder; E87.5 Hyperkalemia; D63.8 Anemia in other chronic diseases classified elsewhere; B19.20 Unspecified viral hepatitis C without hepatic coma; E66.01 Morbid (severe) obesity due to excess calories; E78.00 Pure hypercholesterolemia, unspecified; K21.9 Gastro-esophageal reflux disease without esophagitis; I95.9 Hypotension, unspecified; Z96.649 Presence of unspecified artificial hip joint; G89.29 Other chronic pain; M19.90 Unspecified osteoarthritis, unspecified site; K57.90 Diverticulosis of intestine, part unspecified, without perforation or abscess without bleeding; K59.09 Other constipation; L29.9 Pruritus, unspecified; Z79.51 Long term (current) use of inhaled steroids; Z79.899 Other long term (current) drug therapy; Z82.5 Family history of asthma and other chronic lower respiratory diseases; Z86.73 Personal history of transient ischemic attack (TIA), and cerebral infarction without residual deficits; Z87.11 Personal history of peptic ulcer disease; Z99.2 Dependence on renal dialysis; Z90.49 Acquired absence of other specified parts of digestive tract; Z93.0 Tracheostomy status; Z90.710 Acquired absence of both cervix and uterus; Z88.1 Allergy status to other antibiotic agents; Z88.8 Allergy status to other drugs, medicaments and biological substances; Z98.891 History of uterine scar from previous surgery; Z22.322 Carrier or suspected carrier of Methicillin resistant Staphylococcus aureus; Z68.37 Body mass index [BMI] 37.0-37.9, adult
CPT/HCPCS: 36415; 36600; 71045; 74018; 80048; 82375; 82805; 83605; 83735; 84100; 84132; 84145; 84484; 93005; 94640; 96365; 96368; 96375; 97116; 97162; 99291; J0360; J0456; J1170; J1200; J2270; J2405; J2543; J2920; J2930; J3370; J7050; J7060; J7611; J7620; Q0163

== ENCOUNTER → 2019-06-18 | Day surgery (SDC) | payer MEDICARE, MEDICAID ==
[~2019-06-18] MED LIST changes: +LIDOCAINE HCL 1% 20ML VIAL (Pyxis) INJ ONE; +REVE175V IH; +SODIUM BICARBONATE 4% (2.4MEQ) 5ML VIAL IV ONE
== END | disposition home or self-care (01) ==
LOC: RADANGIO 13:37
PROVIDERS: ATTEND Internal Medicine Geriatric Medicine
DX: T82.598A Other mechanical complication of other cardiac and vascular devices and implants, initial encounter (principal); J44.1 Chronic obstructive pulmonary disease with (acute) exacerbation; I12.0 Hypertensive chronic kidney disease with stage 5 chronic kidney disease or end stage renal disease; E11.22 Type 2 diabetes mellitus with diabetic chronic kidney disease; E11.59 Type 2 diabetes mellitus with other circulatory complications; N18.6 End stage renal disease; E66.8 Other obesity; F41.9 Anxiety disorder, unspecified; G43.709 Chronic migraine without aura, not intractable, without status migrainosus; Z86.73 Personal history of transient ischemic attack (TIA), and cerebral infarction without residual deficits; Z93.0 Tracheostomy status; Z99.2 Dependence on renal dialysis; Z79.899 Other long term (current) drug therapy; Z82.49 Family history of ischemic heart disease and other diseases of the circulatory system; Z87.891 Personal history of nicotine dependence; Z83.3 Family history of diabetes mellitus; X58.XXXA Exposure to other specified factors, initial encounter; Y93.89 Activity, other specified; Y92.89 Other specified places as the place of occurrence of the external cause; Y99.8 Other external cause status
CPT/HCPCS: 36573; 93971; C1725; C1769; J3490

== ENCOUNTER 2019-07-21 09:30 | Inpatient (IN) | payer MEDICARE, MEDICAID ==
[~2019-07-21] VITALS: Ht 157.5 cm; Wt 97.3 kg
[~2019-07-21 09:30] MED LIST changes: -LIDOCAINE HCL 1% 20ML VIAL (Pyxis) INJ ONE; -SODIUM BICARBONATE 4% (2.4MEQ) 5ML VIAL IV ONE
[2019-07-21] MEDS ORDERED: ALBUTEROL (0.083%) 2.5MG/3ML NEB HHN STA (09:42)
[2019-07-21] MEDS ORDERED: METHYLPREDNISOLONE SOD SUCC 125 MG/2 ML VIAL IV STA (09:42)
[2019-07-21] MEDS ORDERED: IPRATROPIUM BROMIDE (0.02%) 0.5MG/2.5ML NEB HHN STA (09:42)
[2019-07-21] MEDS ORDERED: IPRATROPIUM/ALBUTEROL 0.5-3(2.5)MG/3ML NEB ONE (09:51)
[2019-07-21] MEDS ORDERED: ONDANSETRON HCL 4MG/2ML INJ IV ONE (10:30)
[2019-07-21] MEDS ORDERED: MORPHINE SULFATE 4 MG/ML CPJ (NOT FOR IM USE) IV ONE (10:30)
[2019-07-21] MEDS ORDERED: DIPHENHYDRAMINE 50MG/ML VIAL IV ONE (10:30)
[2019-07-21] MEDS ORDERED: ASPIRIN 81MG TABLET PO ONE (10:45)
[2019-07-21] MEDS ORDERED: LABETALOL 5MG/ML SYR 20 MG/4 ML SYRINGE IV ONE (10:45)
[2019-07-21 12:26] LABS: CHLORIDE 103 mEq/L (98-107)
[2019-07-21 12:28] LABS: HEMATOCRIT. 32.5 % (36.0-48.0); HEMOGLOBIN. 10.6 g/dL (12.0-16.0); MEAN CORPUSCULAR HEMOGLOBIN 29.9 pg (28.0-32.0); MEAN CORPUSCULAR VOLUME 91.8 fL (81.0-99.0); RED BLOOD CELL COUNT 3.55 mill/uL (4.2-5.4); RED CELL DISTRIBUTION WIDTH 18.7 % (11.6-14.6)
[2019-07-21 13:24] LABS: PLATELET 141 x1000/uL (130-400); PLATELET ESTIMATE NORMAL
[2019-07-21 13:30] VITALS: BP 189/102
[2019-07-21 14:00] VITALS: BP 191/100
[2019-07-21] MEDS ORDERED: YUPELRI NEB SCH (14:00)
[2019-07-21] MEDS ORDERED: CLONIDINE 0.1MG TABLET PO PRN (14:30)
[2019-07-21] MEDS ORDERED: ACETAMINOPHEN 325MG TABLET PO PRN (14:30)
[2019-07-21] MEDS ORDERED: ENOXAPARIN 40MG/0.4ML SYR SUBCUT SCH (14:30)
[2019-07-21] MEDS ORDERED: ONDANSETRON HCL 4MG/2ML INJ IV PRN (14:30)
[2019-07-21] MEDS ORDERED: NIFEDIPINE XL 90MG TAB PO SCH (15:00)
[2019-07-21] MEDS ORDERED: DOCUSATE SODIUM 100MG CAPSULE PO SCH (15:00)
[2019-07-21] MEDS: HYDROCODONE/ACETAMINOPHEN 10/325MG TABLET PO PRN (15:45)
[2019-07-21 16:00] VITALS: BP 192/103
[2019-07-21] MEDS ORDERED: HYDRALAZINE HCL 50MG TABLET PO NR (16:15)
[2019-07-21] MEDS ORDERED: DIPHENHYDRAMINE 50MG CAPSULE PO NR (16:15)
[2019-07-21] MEDS ORDERED: DIPHENHYDRAMINE 25MG CAPSULE PO PRN (16:15)
[2019-07-21] MEDS ORDERED: GUAIFENESIN/CODEINE 100-10MG/5ML UDC PO PRN (16:15)
[2019-07-21] MEDS ORDERED: DIPHENHYDRAMINE 50MG/ML VIAL IV NR (17:52)
[2019-07-21 18:00] VITALS: BP 160/92
[2019-07-21] MEDS: DOCUSATE SODIUM 250MG CAPSULE PO SCH (18:09)
[2019-07-21] MEDS: GUAIFENESIN 200MG/10ML SUGAR FREE UDC PO PRN (18:09)
[2019-07-21 20:00] VITALS: BP 157/94
[2019-07-21] MEDS: LIDOCAINE 5% PATCH TOP SCH (20:49)
[2019-07-21] MEDS: GUAIFENESIN 600MG ER TABLET PO SCH (20:49)
[2019-07-21] MEDS: DOXAZOSIN MESYLATE 4MG TABLET PO SCH (20:49)
[2019-07-21] MEDS: HYDRALAZINE HCL 50MG TABLET PO SCH (21:25)
[2019-07-21 22:00] VITALS: BP 135/65
[2019-07-21 23:59] LABS: CREATINE KINASE MB FRACTION < 1.0 ng/mL (0.5-3.6)
[2019-07-22] VITALS (13 sets, daily range): BP systolic 103–167; BP diastolic 56–108
[2019-07-22] MEDS: BUDESONIDE 0.5MG/2ML NEB HHN SCH ×3 (00:24→20:15)
[2019-07-22] MEDS: ZOLPIDEM TARTRATE 5MG TABLET PO PRN ×2 (00:47→22:14)
[2019-07-22 01:23] LABS: *AMPHETAMINES SCREEN URINE NEGATIVE (NEGATIVE); *BARBITURATES SCREEN URINE NEGATIVE (NEGATIVE); *BENZODIAZEPINES SCREEN URINE NEGATIVE (NEGATIVE); *COCAINE SCREEN URINE NEGATIVE (NEGATIVE); METHADONE URINE SCREEN NEGATIVE (NEGATIVE); OPIATES URINE SCREEN NEGATIVE (NEGATIVE)
[2019-07-22 01:24] LABS: CANNABINOID URINE SCREEN NEGATIVE (NEGATIVE); PHENCYCLIDINE URINE SCREEN NEGATIVE (NEGATIVE)
[2019-07-22] MEDS: HYDRALAZINE HCL 50MG TABLET PO SCH (05:39)
[2019-07-22 07:30] LABS: HEMATOCRIT. 31.9 % (36.0-48.0); HEMOGLOBIN. 10.5 g/dL (12.0-16.0); MEAN CORPUSCULAR HEMOGLOBIN 29.5 pg (28.0-32.0); MEAN CORPUSCULAR VOLUME 89.5 fL (81.0-99.0); RED BLOOD CELL COUNT 3.56 mill/uL (4.2-5.4); RED CELL DISTRIBUTION WIDTH 18.8 % (11.6-14.6)
[2019-07-22 07:45] LABS: CHLORIDE 99 mEq/L (98-107)
[2019-07-22 07:57] LABS: CREATINE KINASE MB FRACTION < 1.0 ng/mL (0.5-3.6)
[2019-07-22] MEDS ORDERED: HYDRALAZINE HCL 50MG TABLET PO SCH (08:30)
[2019-07-22] MEDS: GUAIFENESIN 600MG ER TABLET PO SCH ×2 (08:58→20:17)
[2019-07-22] MEDS: NIFEDIPINE XL 90MG TAB PO SCH (08:58)
[2019-07-22] MEDS: DOCUSATE SODIUM 250MG CAPSULE PO SCH (08:58)
[2019-07-22] MEDS: LIDOCAINE 5% PATCH TOP SCH (08:59)
[2019-07-22] MEDS ORDERED: DIPHENHYDRAMINE 50MG/ML VIAL IV SCH (09:00)
[2019-07-22] MEDS ORDERED: DIPHENHYDRAMINE 25MG CAPSULE PO PRN (10:15)
[2019-07-22 10:48] LABS: MEAN PLATELET VOLUME 7.8 fl (7.4-10.4); PLATELET ESTIMATE NORMAL
[2019-07-22 10:49] LABS: PLATELET 191 x1000/uL (130-400)
[2019-07-22] MEDS: HYDRALAZINE HCL 100MG TABLET PO SCH ×2 (13:16→22:13)
[2019-07-22] MEDS ORDERED: ENOXAPARIN 30MG/0.3ML SYR SUBCUT SCH (14:00)
[2019-07-22] MEDS: YUPELRI NEB SCH (14:00)
[2019-07-22] MEDS: HYDROCODONE/ACETAMINOPHEN 10/325MG TABLET PO PRN (20:17)
[2019-07-22] MEDS: DOXAZOSIN MESYLATE 4MG TABLET PO SCH (20:17)
[2019-07-23] VITALS (12 sets, daily range): BP systolic 102–145; BP diastolic 49–104
[2019-07-23] MEDS: BUDESONIDE 0.5MG/2ML NEB HHN SCH ×2 (08:17→20:55)
[2019-07-23] MEDS: YUPELRI NEB SCH (08:17)
[2019-07-23] MEDS: HYDRALAZINE HCL 100MG TABLET PO SCH ×3 (08:49→21:51)
[2019-07-23] MEDS: DOCUSATE SODIUM 250MG CAPSULE PO SCH (08:49)
[2019-07-23] MEDS: NIFEDIPINE XL 90MG TAB PO SCH (08:50)
[2019-07-23] MEDS: GUAIFENESIN 600MG ER TABLET PO SCH ×2 (08:50→20:15)
[2019-07-23] MEDS: LIDOCAINE 5% PATCH TOP SCH (08:51)
[2019-07-23] MEDS ORDERED: HYDR100T26 MT (09:14)
[2019-07-23] MEDS ORDERED: NIFE90TA34 MT (09:14)
[2019-07-23] MEDS ORDERED: LIDO700A30 TP (09:14)
[2019-07-23] MEDS ORDERED: MORPHINE SULFATE 2 MG/ML CPJ (NOT FOR IM USE) IV NR (09:15)
[2019-07-23] MEDS ORDERED: FUROSEMIDE 40MG/4ML VIAL IVP NR (09:15)
[2019-07-23] MEDS ORDERED: DIPHENHYDRAMINE 50MG/ML VIAL IV SCH (10:15)
[2019-07-23] MEDS ORDERED: ENOXAPARIN 40MG/0.4ML SYR SUBCUT SCH (14:00)
[2019-07-23] MEDS: GUAIFENESIN 200MG/10ML SUGAR FREE UDC PO PRN (16:36)
[2019-07-23] MEDS: LORAZEPAM 2MG/ML CPJ IV PRN (20:17)
[2019-07-23] MEDS: DOXAZOSIN MESYLATE 4MG TABLET PO SCH (20:25)
[2019-07-23] MEDS: ZOLPIDEM TARTRATE 5MG TABLET PO PRN (21:52)
[2019-07-24] VITALS (7 sets, daily range): BP systolic 109–136; BP diastolic 43–87
[2019-07-24] MEDS: LORAZEPAM 2MG/ML CPJ IV PRN ×2 (02:07→10:50)
[2019-07-24] MEDS: HYDRALAZINE HCL 100MG TABLET PO SCH (06:19)
[2019-07-24] MEDS: HYDROCODONE/ACETAMINOPHEN 10/325MG TABLET PO PRN (06:27)
[2019-07-24 06:31] LABS: HEMATOCRIT. 32.6 % (36.0-48.0); HEMOGLOBIN. 10.7 g/dL (12.0-16.0); MEAN CORPUSCULAR HEMOGLOBIN 29.1 pg (28.0-32.0); MEAN CORPUSCULAR VOLUME 88.9 fL (81.0-99.0); MEAN PLATELET VOLUME 7.3 fl (7.4-10.4); PLATELET 262 x1000/uL (130-400); RED BLOOD CELL COUNT 3.67 mill/uL (4.2-5.4); RED CELL DISTRIBUTION WIDTH 19.2 % (11.6-14.6)
[2019-07-24 07:48] LABS: PLATELET ESTIMATE NORMAL
[2019-07-24] MEDS: DOCUSATE SODIUM 250MG CAPSULE PO SCH (09:00)
[2019-07-24] MEDS: GUAIFENESIN 600MG ER TABLET PO SCH (09:17)
[2019-07-24] MEDS: NIFEDIPINE XL 90MG TAB PO SCH (09:17)
[2019-07-24] MEDS: LIDOCAINE 5% PATCH TOP SCH (09:18)
[2019-07-24] MEDS: YUPELRI NEB SCH (09:20)
[2019-08-05] MEDS ORDERED: CYCL10TA7 PO (08:14)
[2019-08-05] MEDS ORDERED: FOS1G PO (08:14)
[2019-08-05] MEDS ORDERED: LORA1TAB PO (08:14)
== END 2019-07-24 13:37 | disposition home or self-care (01) | DRG 189 ==
LOC: ER 09:30 → EDBEDREQSVC 09:46 → 5EST 10:41 → EDBEDREQ 10:45 → EDBEDREQTM 10:45 → ENRESERV 11:09
PROVIDERS: ADMIT Internal Medicine Geriatric Medicine; ATTEND Internal Medicine Geriatric Medicine
PROC: 5A1D70Z Performance of Urinary Filtration, Intermittent, Less than 6 Hours Per Day (ICD-10-PCS; principal; 2019-07-22)
PROC: 5A1D70Z Performance of Urinary Filtration, Intermittent, Less than 6 Hours Per Day (ICD-10-PCS; 2019-07-23)
DX: J96.20 Acute and chronic respiratory failure, unspecified whether with hypoxia or hypercapnia (principal); N18.6 End stage renal disease; J44.1 Chronic obstructive pulmonary disease with (acute) exacerbation; I13.11 Hypertensive heart and chronic kidney disease without heart failure, with stage 5 chronic kidney disease, or end stage renal disease; E87.1 Hypo-osmolality and hyponatremia; J44.0 Chronic obstructive pulmonary disease with (acute) lower respiratory infection; J20.9 Acute bronchitis, unspecified; F41.1 Generalized anxiety disorder; I16.0 Hypertensive urgency; D63.1 Anemia in chronic kidney disease; E78.00 Pure hypercholesterolemia, unspecified; J38.02 Paralysis of vocal cords and larynx, bilateral; D72.1 Eosinophilia; E87.5 Hyperkalemia; G89.4 Chronic pain syndrome; K21.9 Gastro-esophageal reflux disease without esophagitis; N64.4 Mastodynia; Z86.73 Personal history of transient ischemic attack (TIA), and cerebral infarction without residual deficits; Z87.11 Personal history of peptic ulcer disease; Z90.49 Acquired absence of other specified parts of digestive tract; Z90.710 Acquired absence of both cervix and uterus; Z99.2 Dependence on renal dialysis; Z88.1 Allergy status to other antibiotic agents; Z93.0 Tracheostomy status; Z88.8 Allergy status to other drugs, medicaments and biological substances; Z98.891 History of uterine scar from previous surgery; Z86.19 Personal history of other infectious and parasitic diseases
CPT/HCPCS: 36415; 71045; 80048; 80305; 82553; 84484; 93005; 93306; 94640; 99285; C1893; J1200; J1650; J1940; J2060; J2270; J2405; J2930; J3490; J7611; J7620; J7626; Q0163

== ENCOUNTER → 2019-08-05 | Day surgery (SDC) | payer MEDICARE, MEDICAID ==
[~2019-08-05] VITALS: Ht 157.5 cm; Wt 87.5 kg
[~2019-08-05] MED LIST changes: +ACETAMINOPHEN 325MG TABLET PO PRN; -AMLO10TA80 PO; +CYCL10TA7 PO; +DIPHENHYDRAMINE 50MG/ML VIAL IV ONE; +DIPHENHYDRAMINE 50MG/ML VIAL ONE; -FAMO40TA70 MT; +FENTANYL CITRATE/PF 50MCG/ML 2ML VIAL ONE; +FOS1G PO; +HYDR100T26 MT; +LIDO700A30 TP; +LIDOCAINE HCL 2% JELLY 5ML ONE; +LORA1TAB PO; +MIDAZOLAM HCL 5 MG/5 ML VIAL ONE; +NIFE90TA34 MT; +ONDANSETRON HCL 4MG/2ML INJ IV PRN; +TETRACAINE/BENZOCAINE/BUTAMBEN 20 GM SPRAY MM ONE
== END | disposition home or self-care (01) ==
LOC: CARD 06:30
PROVIDERS: ATTEND Specialist
DX: I33.0 Acute and subacute infective endocarditis (principal); I12.0 Hypertensive chronic kidney disease with stage 5 chronic kidney disease or end stage renal disease; E11.22 Type 2 diabetes mellitus with diabetic chronic kidney disease; N18.6 End stage renal disease; Z98.890 Other specified postprocedural states; Z99.2 Dependence on renal dialysis; Z79.899 Other long term (current) drug therapy; Z88.1 Allergy status to other antibiotic agents; Z88.8 Allergy status to other drugs, medicaments and biological substances; Z82.49 Family history of ischemic heart disease and other diseases of the circulatory system; Z83.3 Family history of diabetes mellitus
CPT/HCPCS: 93312; J1200; J2250; J3010

== ENCOUNTER → 2019-08-28 | Outpatient (CLI) | payer MEDICARE, MEDICAID ==
[~2019-08-28] MED LIST changes: -ACETAMINOPHEN 325MG TABLET PO PRN; -DIPHENHYDRAMINE 50MG/ML VIAL IV ONE; -DIPHENHYDRAMINE 50MG/ML VIAL ONE; -FENTANYL CITRATE/PF 50MCG/ML 2ML VIAL ONE; -LIDOCAINE HCL 2% JELLY 5ML ONE; -MIDAZOLAM HCL 5 MG/5 ML VIAL ONE; -ONDANSETRON HCL 4MG/2ML INJ IV PRN; -TETRACAINE/BENZOCAINE/BUTAMBEN 20 GM SPRAY MM ONE
== END | disposition home or self-care (01) ==
LOC: LAB 10:21
PROVIDERS: ATTEND Surgery
DX: N63.20 Unspecified lump in the left breast, unspecified quadrant (principal)
CPT/HCPCS: 88305

== ENCOUNTER 2019-10-13 19:42 | Inpatient (IN) | payer MEDICARE, MEDICAID ==
[~2019-10-13] VITALS: Ht 157.5 cm; Wt 84.8 kg
[~2019-10-13 19:42] MED LIST changes: -NIFE90TA34 MT; +NIFE90TA60 MT
[2019-10-13] MEDS ORDERED: IPRATROPIUM BROMIDE (0.02%) 0.5MG/2.5ML NEB HHN STA (22:42)
[2019-10-13] MEDS ORDERED: ONDANSETRON HCL 4MG/2ML INJ IV STA (22:42)
[2019-10-13] MEDS ORDERED: MORPHINE SULFATE 4 MG/ML CPJ (NOT FOR IM USE) IV STA (22:42)
[2019-10-13] MEDS ORDERED: ALBUTEROL (0.083%) 2.5MG/3ML NEB HHN STA (22:42)
[2019-10-13] MEDS ORDERED: METHYLPREDNISOLONE SOD SUCC 125 MG/2 ML VIAL IV STA (22:42)
[2019-10-13] MEDS ORDERED: GENTAMICIN 80MG PREMIX 100 ML IV ONE (22:45)
[2019-10-13] MEDS ORDERED: SODIUM CHLORIDE 0.9% 1000ML BAG (SEPSIS BOLUS) IV ONE (22:45)
[2019-10-13] MEDS ORDERED: VANCOMYCIN 1 G PREMIX 200 ML IV ONE (22:45)
[2019-10-13] MEDS ORDERED: ASPIRIN 81MG TABLET PO ONE (23:00)
[2019-10-13 23:14] LABS: BASOPHILS % 0.4 % (0.0-2.0); EOSINOPHILS % 1.6 % (0.0-5.0); HEMATOCRIT. 31.4 % (36.0-48.0); HEMOGLOBIN. 10.4 g/dL (12.0-16.0); LYMPHOCYTES % 8.5 % (20.0-50.0); MEAN CORPUSCULAR HEMOGLOBIN 27.9 pg (28.0-32.0); MEAN CORPUSCULAR VOLUME 84.3 fL (81.0-99.0); MEAN PLATELET VOLUME 7.6 fl (7.4-10.4); MONOCYTES % 12.4 % (2.0-8.0); NEUTROPHILS % 77.1 % (40.0-76.0); PLATELET 225 x1000/uL (130-400); RED BLOOD CELL COUNT 3.72 mill/uL (4.2-5.4); RED CELL DISTRIBUTION WIDTH 19.3 % (11.6-14.6)
[2019-10-13 23:18] LABS: CHLORIDE 101 mEq/L (98-107)
[2019-10-13 23:22] LABS: INR 1.1
[2019-10-13 23:24] LABS: PHOSPHORUS 5.2 mg/dL (2.5-4.9)
[2019-10-14] VITALS (7 sets, daily range): BP systolic 133–147; BP diastolic 70–91
[2019-10-14] MEDS ORDERED: DIPHENHYDRAMINE 50MG/ML VIAL IV ONE (01:45)
[2019-10-14 06:42] LABS: CLARITY URINE CLOUDY (CLEAR); COLOR URINE YELLOW (YELLOW); KETONES URINE NEGATIVE (NEGATIVE); LEUKOCYTE ESTERASE URINE NEGATIVE (NEGATIVE); NITRITE URINE NEGATIVE (NEGATIVE); OCCULT BLOOD URINE NEGATIVE (NEGATIVE); PH URINE >=9.0 (4.5-8.0); PROTEIN URINE 2+ (NEGATIVE); SPECIFIC GRAVITY URINE 1.006 (1.005-1.030); UROBILINOGEN URINE 0.2 E.U./dL (0.2-1.0)
[2019-10-14] MEDS ORDERED: CLONIDINE 0.1MG TABLET PO PRN (07:15)
[2019-10-14] MEDS: HYDROCODONE/ACETAMINOPHEN 5/325MG TABLET PO PRN ×3 (08:43→20:50)
[2019-10-14 09:38] LABS: HEMATOCRIT. 29.2 % (36.0-48.0); HEMOGLOBIN. 9.5 g/dL (12.0-16.0); MEAN CORPUSCULAR HEMOGLOBIN 27.8 pg (28.0-32.0); MEAN CORPUSCULAR VOLUME 85.1 fL (81.0-99.0); MEAN PLATELET VOLUME 7.6 fl (7.4-10.4); PLATELET 188 x1000/uL (130-400); RED BLOOD CELL COUNT 3.43 mill/uL (4.2-5.4); RED CELL DISTRIBUTION WIDTH 19.6 % (11.6-14.6)
[2019-10-14] MEDS ORDERED: MORPHINE SULFATE 2 MG/ML CPJ (NOT FOR IM USE) IV SCH (09:45)
[2019-10-14] MEDS ORDERED: BUDESONIDE 0.5MG/2ML NEB HHN SCH (10:00)
[2019-10-14] MEDS: NIFEDIPINE XL 90MG TAB PO SCH (10:31)
[2019-10-14] MEDS: ENOXAPARIN 30MG/0.3ML SYR SUBCUT SCH (10:31)
[2019-10-14] MEDS: DIPHENHYDRAMINE 50MG/ML VIAL IV PRN ×2 (10:31→20:47)
[2019-10-14] MEDS ORDERED: HYDRALAZINE 20MG/ML VIAL IV PRN (11:30)
[2019-10-14 12:12] LABS: PLATELET ESTIMATE NORMAL
[2019-10-14] MEDS: HYDRALAZINE HCL 50MG TABLET PO SCH ×2 (13:36→20:49)
[2019-10-14] MEDS: CINACALCET HCL 30MG TABLET PO SCH (16:53)
[2019-10-14 17:19] LABS: CREATINE KINASE 27 IU/L (26-192)
[2019-10-14 17:20] LABS: CREATINE KINASE MB FRACTION < 1.0 ng/mL (0.5-3.6)
[2019-10-15] VITALS (12 sets, daily range): BP systolic 117–157; BP diastolic 56–95
[2019-10-15] MEDS: DIPHENHYDRAMINE 50MG/ML VIAL IV PRN ×4 (00:36→21:38)
[2019-10-15 00:48] LABS: CREATINE KINASE 31 IU/L (26-192)
[2019-10-15 00:51] LABS: CREATINE KINASE MB FRACTION < 1.0 ng/mL (0.5-3.6)
[2019-10-15 04:26] LABS: HEMATOCRIT. 32.5 % (36.0-48.0); HEMOGLOBIN. 10.5 g/dL (12.0-16.0); MEAN CORPUSCULAR HEMOGLOBIN 27.7 pg (28.0-32.0); MEAN CORPUSCULAR VOLUME 85.7 fL (81.0-99.0); MEAN PLATELET VOLUME 7.8 fl (7.4-10.4); PLATELET 264 x1000/uL (130-400); RED BLOOD CELL COUNT 3.79 mill/uL (4.2-5.4); RED CELL DISTRIBUTION WIDTH 19.5 % (11.6-14.6)
[2019-10-15 04:35] LABS: CHLORIDE 103 mEq/L (98-107)
[2019-10-15] MEDS: ACETAMINOPHEN 325MG TABLET PO PRN (04:40)
[2019-10-15 04:46] LABS: LDL CHOLESTEROL 54 mg/dL (5-100)
[2019-10-15 04:47] LABS: CREATINE KINASE 24 IU/L (26-192); HDL CHOLESTEROL 82 mg/dL (40-59)
[2019-10-15 04:50] LABS: CREATINE KINASE MB FRACTION < 1.0 ng/mL (0.5-3.6)
[2019-10-15] MEDS: HYDRALAZINE HCL 50MG TABLET PO SCH ×3 (06:37→21:38)
[2019-10-15 07:17] LABS: PLATELET ESTIMATE NORMAL
[2019-10-15] MEDS: NIFEDIPINE XL 90MG TAB PO SCH (09:31)
[2019-10-15] MEDS: ENOXAPARIN 30MG/0.3ML SYR SUBCUT SCH (09:32)
[2019-10-15] MEDS ORDERED: LORAZEPAM 2MG/ML CPJ IV NR (13:30)
[2019-10-15] MEDS ORDERED: MORPHINE SULFATE 2 MG/ML CPJ (NOT FOR IM USE) IV NR (15:30)
[2019-10-15] MEDS: CINACALCET HCL 30MG TABLET PO SCH (18:08)
[2019-10-15] MEDS: MORPHINE SULFATE 2 MG/ML CPJ (NOT FOR IM USE) IV PRN (21:40)
[2019-10-15] MEDS ORDERED: PREDNISONE 20MG TABLET PO NR (23:15)
[2019-10-16] VITALS (12 sets, daily range): BP systolic 99–152; BP diastolic 56–102
[2019-10-16] MEDS: DIPHENHYDRAMINE 50MG/ML VIAL IV PRN ×4 (05:21→20:05)
[2019-10-16] MEDS: HYDRALAZINE HCL 50MG TABLET PO SCH ×3 (05:21→21:11)
[2019-10-16] MEDS: MORPHINE SULFATE 2 MG/ML CPJ (NOT FOR IM USE) IV PRN ×4 (05:22→20:06)
[2019-10-16] MEDS: IPRATROPIUM/ALBUTEROL 0.5-3(2.5)MG/3ML NEB HHN SCH ×4 (05:51→20:59)
[2019-10-16] MEDS ORDERED: PREDNISONE 20MG TABLET PO ONE (06:30)
[2019-10-16 06:44] LABS: BASOPHILS % 0.5 % (0.0-2.0); EOSINOPHILS % 2.4 % (0.0-5.0); HEMATOCRIT. 30.4 % (36.0-48.0); HEMOGLOBIN. 9.8 g/dL (12.0-16.0); LYMPHOCYTES % 15.7 % (20.0-50.0); MEAN CORPUSCULAR HEMOGLOBIN 27.5 pg (28.0-32.0); MEAN CORPUSCULAR VOLUME 85.2 fL (81.0-99.0); MEAN PLATELET VOLUME 7.6 fl (7.4-10.4); MONOCYTES % 10.2 % (2.0-8.0); NEUTROPHILS % 71.2 % (40.0-76.0); PLATELET 283 x1000/uL (130-400); RED BLOOD CELL COUNT 3.57 mill/uL (4.2-5.4); RED CELL DISTRIBUTION WIDTH 20.1 % (11.6-14.6)
[2019-10-16 06:52] LABS: CHLORIDE 102 mEq/L (98-107)
[2019-10-16] MEDS: NIFEDIPINE XL 90MG TAB PO SCH (09:00)
[2019-10-16] MEDS: ENOXAPARIN 30MG/0.3ML SYR SUBCUT SCH (09:44)
[2019-10-16] MEDS: CINACALCET HCL 30MG TABLET PO SCH (18:28)
[2019-10-16] MEDS: LACTULOSE 20G/30ML UDC PO PRN (20:05)
[2019-10-17] VITALS (11 sets, daily range): BP systolic 137–182; BP diastolic 65–93
[2019-10-17] MEDS: IPRATROPIUM/ALBUTEROL 0.5-3(2.5)MG/3ML NEB HHN SCH ×6 (00:29→20:13)
[2019-10-17] MEDS: DIPHENHYDRAMINE 50MG/ML VIAL IV PRN ×3 (05:13→20:58)
[2019-10-17] MEDS: HYDRALAZINE HCL 50MG TABLET PO SCH (05:22)
[2019-10-17] MEDS: MORPHINE SULFATE 2 MG/ML CPJ (NOT FOR IM USE) IV PRN ×4 (05:23→20:58)
[2019-10-17 09:03] LABS: HEMATOCRIT. 32.4 % (36.0-48.0); HEMOGLOBIN. 10.2 g/dL (12.0-16.0); MEAN CORPUSCULAR HEMOGLOBIN 26.8 pg (28.0-32.0); MEAN CORPUSCULAR VOLUME 85.7 fL (81.0-99.0); MEAN PLATELET VOLUME 7.4 fl (7.4-10.4); PLATELET 295 x1000/uL (130-400); RED BLOOD CELL COUNT 3.79 mill/uL (4.2-5.4); RED CELL DISTRIBUTION WIDTH 19.9 % (11.6-14.6)
[2019-10-17] MEDS: ENOXAPARIN 30MG/0.3ML SYR SUBCUT SCH (09:19)
[2019-10-17] MEDS: PREDNISONE 20MG TABLET PO SCH (09:19)
[2019-10-17] MEDS: DOCUSATE SODIUM 100MG CAPSULE PO SCH ×2 (09:19→17:29)
[2019-10-17] MEDS: NIFEDIPINE XL 90MG TAB PO SCH (09:19)
[2019-10-17 13:02] LABS: PLATELET ESTIMATE NORMAL
[2019-10-17] MEDS: HYDRALAZINE HCL 100MG TABLET PO SCH ×2 (14:17→21:56)
[2019-10-17] MEDS: CLONIDINE 0.1MG TABLET PO SCH ×2 (14:18→21:55)
[2019-10-17] MEDS: ACETYLCYSTEINE 100MG/ML 10% VIAL 4ML INH SCH (15:41)
[2019-10-17] MEDS: CINACALCET HCL 30MG TABLET PO SCH (17:29)
[2019-10-17] MEDS: NIFEDIPINE XL 60MG TAB PO SCH ×2 (20:59→21:00)
[2019-10-17] MEDS: LACTULOSE 20G/30ML UDC PO PRN (21:25)
[2019-10-17] MEDS: [UNRECOGNIZED DRUG - REMARK] NEB SCH (21:42)
[2019-10-18] VITALS (12 sets, daily range): BP systolic 131–160; BP diastolic 60–118
[2019-10-18] MEDS: IPRATROPIUM/ALBUTEROL 0.5-3(2.5)MG/3ML NEB HHN SCH ×6 (00:25→20:24)
[2019-10-18] MEDS: ACETYLCYSTEINE 100MG/ML 10% VIAL 4ML INH SCH ×3 (00:29→15:43)
[2019-10-18] MEDS: CLONIDINE 0.1MG TABLET PO SCH ×3 (05:50→22:00)
[2019-10-18] MEDS: HYDRALAZINE HCL 100MG TABLET PO SCH ×3 (05:50→22:00)
[2019-10-18] MEDS: ONDANSETRON HCL 4MG/2ML INJ IV PRN (05:54)
[2019-10-18 08:08] LABS: HEMATOCRIT. 31.8 % (36.0-48.0); HEMOGLOBIN. 10.1 g/dL (12.0-16.0); MEAN CORPUSCULAR HEMOGLOBIN 27.2 pg (28.0-32.0); MEAN CORPUSCULAR VOLUME 85.7 fL (81.0-99.0); MEAN PLATELET VOLUME 7.3 fl (7.4-10.4); PLATELET 283 x1000/uL (130-400); RED BLOOD CELL COUNT 3.71 mill/uL (4.2-5.4); RED CELL DISTRIBUTION WIDTH 20.2 % (11.6-14.6)
[2019-10-18] MEDS: NIFEDIPINE XL 60MG TAB PO SCH ×2 (08:09→21:10)
[2019-10-18] MEDS: DOCUSATE SODIUM 100MG CAPSULE PO SCH (08:09)
[2019-10-18] MEDS: ENOXAPARIN 40MG/0.4ML SYR SUBCUT SCH ×2 (08:09→11:19)
[2019-10-18] MEDS: PREDNISONE 20MG TABLET PO SCH ×2 (08:09→11:19)
[2019-10-18] MEDS: SORBITOL 70% SOLN 30ML PO NR ×2 (08:30→11:19)
[2019-10-18 08:32] LABS: CHLORIDE 102 mEq/L (98-107)
[2019-10-18] MEDS: DOCUSATE SODIUM 250MG CAPSULE PO SCH ×2 (09:00→11:19)
[2019-10-18] MEDS: DIPHENHYDRAMINE 50MG/ML VIAL IV PRN ×3 (10:20→21:22)
[2019-10-18 11:15] LABS: PLATELET ESTIMATE NORMAL
[2019-10-18] MEDS: MORPHINE SULFATE 2 MG/ML CPJ (NOT FOR IM USE) IV PRN ×3 (11:20→21:16)
[2019-10-18] MEDS: [UNRECOGNIZED DRUG - REMARK] NEB SCH (11:34)
[2019-10-18] MEDS: CINACALCET HCL 30MG TABLET PO SCH (17:41)
[2019-10-19] VITALS (12 sets, daily range): BP systolic 146–178; BP diastolic 74–115
[2019-10-19] MEDS ORDERED: NA PHOS,M-B/NA PHOS,DI-BA ENEMA 118ML PR ONE (04:15)
[2019-10-19] MEDS: CLONIDINE 0.1MG TABLET PO SCH ×3 (05:06→22:00)
[2019-10-19] MEDS: HYDRALAZINE HCL 100MG TABLET PO SCH ×3 (05:07→22:00)
[2019-10-19] MEDS: ONDANSETRON HCL 4MG/2ML INJ IV PRN ×2 (05:11→09:10)
[2019-10-19] MEDS: MORPHINE SULFATE 2 MG/ML CPJ (NOT FOR IM USE) IV PRN ×2 (06:10→22:53)
[2019-10-19] MEDS: DIPHENHYDRAMINE 50MG/ML VIAL IV PRN (06:10)
[2019-10-19] MEDS: LACTULOSE 20G/30ML UDC PO PRN (06:11)
[2019-10-19 06:13] LABS: BASOPHILS % 0.1 % (0.0-2.0); HEMATOCRIT. 32.4 % (36.0-48.0); HEMOGLOBIN. 10.4 g/dL (12.0-16.0); LYMPHOCYTES % 8.5 % (20.0-50.0); MEAN CORPUSCULAR HEMOGLOBIN 27.5 pg (28.0-32.0); MEAN CORPUSCULAR VOLUME 85.4 fL (81.0-99.0); MEAN PLATELET VOLUME 7.7 fl (7.4-10.4); MONOCYTES % 12.9 % (2.0-8.0); NEUTROPHILS % 78.5 % (40.0-76.0); PLATELET 322 x1000/uL (130-400); RED BLOOD CELL COUNT 3.79 mill/uL (4.2-5.4); RED CELL DISTRIBUTION WIDTH 20.1 % (11.6-14.6)
[2019-10-19] MEDS: IPRATROPIUM/ALBUTEROL 0.5-3(2.5)MG/3ML NEB HHN SCH ×5 (08:00→21:28)
[2019-10-19] MEDS: ACETYLCYSTEINE 100MG/ML 10% VIAL 4ML INH SCH ×3 (08:42→14:00)
[2019-10-19] MEDS: PREDNISONE 20MG TABLET PO SCH (09:00)
[2019-10-19] MEDS: NIFEDIPINE XL 60MG TAB PO SCH ×2 (09:00→21:03)
[2019-10-19] MEDS: DOCUSATE SODIUM 250MG CAPSULE PO SCH (09:00)
[2019-10-19] MEDS: ENOXAPARIN 40MG/0.4ML SYR SUBCUT SCH (09:10)
[2019-10-19] MEDS ORDERED: LINA290C MT (09:15)
[2019-10-19] MEDS ORDERED: HYDR-3282 MT (09:16)
[2019-10-19] MEDS ORDERED: NA PHOS,M-B/NA PHOS,DI-BA ENEMA 118ML PR SCH (09:45)
[2019-10-19] MEDS ORDERED: SODIUM POLYSTYRENE SULFONATE 15 G/60 ML BOT PO SCH (11:00)
[2019-10-19] MEDS: [UNRECOGNIZED DRUG - REMARK] NEB SCH (12:39)
[2019-10-19] MEDS: CINACALCET HCL 30MG TABLET PO SCH (17:08)
[2019-10-19] MEDS ORDERED: BISACODYL 10MG SUPP PR NR (19:45)
[2019-10-19] MEDS: ACETAMINOPHEN 325MG TABLET PO PRN (21:11)
[2019-10-20] VITALS (11 sets, daily range): BP systolic 112–166; BP diastolic 69–87
[2019-10-20] MEDS: IPRATROPIUM/ALBUTEROL 0.5-3(2.5)MG/3ML NEB HHN SCH ×6 (00:15→20:52)
[2019-10-20] MEDS: ONDANSETRON HCL 4MG/2ML INJ IV PRN ×3 (00:16→20:29)
[2019-10-20] MEDS: ACETYLCYSTEINE 100MG/ML 10% VIAL 4ML INH SCH ×4 (00:50→17:23)
[2019-10-20] MEDS: HYDRALAZINE HCL 100MG TABLET PO SCH ×3 (06:00→22:00)
[2019-10-20] MEDS: CLONIDINE 0.1MG TABLET PO SCH ×3 (06:00→22:00)
[2019-10-20] MEDS: NIFEDIPINE XL 60MG TAB PO SCH ×2 (09:00→21:00)
[2019-10-20] MEDS: LACTULOSE 20G/30ML UDC PO PRN (11:14)
[2019-10-20] MEDS: ENOXAPARIN 40MG/0.4ML SYR SUBCUT SCH (11:14)
[2019-10-20] MEDS: PREDNISONE 20MG TABLET PO SCH (11:15)
[2019-10-20] MEDS: DOCUSATE SODIUM 250MG CAPSULE PO SCH (11:15)
[2019-10-20] MEDS: DIPHENHYDRAMINE 50MG/ML VIAL IV PRN ×3 (13:13→22:02)
[2019-10-20] MEDS ORDERED: SODIUM POLYSTYRENE SULFONATE 15 G/60 ML BOT PO NR (14:00)
[2019-10-20] MEDS: HYDROCORTISONE ACETATE 25MG SUPP PR SCH ×2 (15:00→22:02)
[2019-10-20] MEDS: CINACALCET HCL 30MG TABLET PO SCH (17:00)
[2019-10-20] MEDS: ACETAMINOPHEN 325MG TABLET PO PRN (17:26)
[2019-10-21] VITALS (12 sets, daily range): BP systolic 104–155; BP diastolic 59–93
[2019-10-21] MEDS: ONDANSETRON HCL 4MG/2ML INJ IV PRN (01:11)
[2019-10-21] MEDS: DIPHENHYDRAMINE 50MG/ML VIAL IV PRN ×3 (02:24→19:56)
[2019-10-21] MEDS: HYDRALAZINE HCL 100MG TABLET PO SCH ×3 (06:17→21:01)
[2019-10-21] MEDS: CLONIDINE 0.1MG TABLET PO SCH ×3 (06:18→21:01)
[2019-10-21] MEDS: HYDROCODONE/APAP 7.5/325MG 1 TAB TABLET PO PRN (06:18)
[2019-10-21 07:15] LABS: HEMATOCRIT. 34.1 % (36.0-48.0); HEMOGLOBIN. 11.1 g/dL (12.0-16.0); MEAN CORPUSCULAR HEMOGLOBIN 27.7 pg (28.0-32.0); MEAN PLATELET VOLUME 7.8 fl (7.4-10.4); PLATELET 310 x1000/uL (130-400); RED BLOOD CELL COUNT 4.02 mill/uL (4.2-5.4); RED CELL DISTRIBUTION WIDTH 20.6 % (11.6-14.6)
[2019-10-21] MEDS ORDERED: DIATR MEGLU/DIATRIZOATE SOLN 30ML PO SCH (07:30)
[2019-10-21] MEDS ORDERED: HYDROMORPHONE HCL/PF 2MG/ML CPJ IV NR ×2 (08:30→17:12)
[2019-10-21] MEDS ORDERED: PREDNISONE 20MG TABLET PO SCH (09:00)
[2019-10-21] MEDS: [UNRECOGNIZED DRUG - REMARK] NEB SCH (09:00)
[2019-10-21] MEDS: ACETYLCYSTEINE 100MG/ML 10% VIAL 4ML INH SCH ×2 (09:10→16:33)
[2019-10-21] MEDS: IPRATROPIUM/ALBUTEROL 0.5-3(2.5)MG/3ML NEB HHN PRN ×2 (09:11→16:34)
[2019-10-21] MEDS: ENOXAPARIN 40MG/0.4ML SYR SUBCUT SCH (09:23)
[2019-10-21] MEDS: NIFEDIPINE XL 60MG TAB PO SCH ×2 (09:24→21:00)
[2019-10-21] MEDS: DOCUSATE SODIUM 250MG CAPSULE PO SCH (09:25)
[2019-10-21 12:53] LABS: PLATELET ESTIMATE NORMAL
[2019-10-21] MEDS: HYDROCORTISONE ACETATE 25MG SUPP PR SCH ×2 (13:39→21:00)
[2019-10-21] MEDS: CINACALCET HCL 30MG TABLET PO SCH (16:11)
[2019-10-21] MEDS: DEXT 5%/0.45% NACL 1000ML 1,000 ML IV SCH (16:29)
[2019-10-21] MEDS: METHYLPREDNISOLONE SOD SUCC 40 MG/ML VIAL IV SCH (19:28)
[2019-10-22] VITALS (15 sets, daily range): BP systolic 104–143; BP diastolic 55–79
[2019-10-22] MEDS: IPRATROPIUM/ALBUTEROL 0.5-3(2.5)MG/3ML NEB HHN PRN ×3 (00:44→17:20)
[2019-10-22] MEDS: ACETYLCYSTEINE 100MG/ML 10% VIAL 4ML INH SCH ×3 (00:45→17:20)
[2019-10-22] MEDS: DIPHENHYDRAMINE 50MG/ML VIAL IV PRN ×5 (01:10→21:33)
[2019-10-22] MEDS: METHYLPREDNISOLONE SOD SUCC 40 MG/ML VIAL IV SCH ×2 (05:10→18:25)
[2019-10-22] MEDS: CLONIDINE 0.1MG TABLET PO SCH ×3 (06:00→22:00)
[2019-10-22] MEDS: HYDRALAZINE HCL 100MG TABLET PO SCH ×3 (06:00→21:26)
[2019-10-22 07:25] LABS: HEMATOCRIT. 31.8 % (36.0-48.0); HEMOGLOBIN. 10.5 g/dL (12.0-16.0); MEAN CORPUSCULAR HEMOGLOBIN 27.8 pg (28.0-32.0); MEAN CORPUSCULAR VOLUME 84.6 fL (81.0-99.0); MEAN PLATELET VOLUME 8.2 fl (7.4-10.4); PLATELET 279 x1000/uL (130-400); RED BLOOD CELL COUNT 3.76 mill/uL (4.2-5.4); RED CELL DISTRIBUTION WIDTH 20.3 % (11.6-14.6)
[2019-10-22] MEDS: NIFEDIPINE XL 60MG TAB PO SCH ×2 (08:36→21:23)
[2019-10-22] MEDS: HYDROCORTISONE ACETATE 25MG SUPP PR SCH ×2 (08:36→21:20)
[2019-10-22] MEDS: ENOXAPARIN 40MG/0.4ML SYR SUBCUT SCH (08:36)
[2019-10-22] MEDS: DOCUSATE SODIUM 250MG CAPSULE PO SCH (08:36)
[2019-10-22] MEDS: ONDANSETRON HCL 4MG/2ML INJ IV PRN (08:51)
[2019-10-22] MEDS ORDERED: HYDROMORPHONE HCL/PF 2MG/ML CPJ IV NR (09:15)
[2019-10-22] MEDS: [UNRECOGNIZED DRUG - REMARK] NEB SCH (09:46)
[2019-10-22 10:14] LABS: PLATELET ESTIMATE NORMAL
[2019-10-22] MEDS: CINACALCET HCL 30MG TABLET PO SCH (16:40)
[2019-10-22] MEDS: DEXT 5%/0.45% NACL 1000ML 1,000 ML IV SCH (21:24)
[2019-10-23] VITALS (15 sets, daily range): BP systolic 98–154; BP diastolic 57–107
[2019-10-23] MEDS: ACETYLCYSTEINE 100MG/ML 10% VIAL 4ML INH SCH ×3 (00:57→17:00)
[2019-10-23] MEDS: DIPHENHYDRAMINE 50MG/ML VIAL IV PRN ×4 (02:29→22:46)
[2019-10-23] MEDS: CLONIDINE 0.1MG TABLET PO SCH ×3 (05:02→22:00)
[2019-10-23] MEDS: HYDRALAZINE HCL 100MG TABLET PO SCH ×3 (05:03→22:46)
[2019-10-23] MEDS: METHYLPREDNISOLONE SOD SUCC 40 MG/ML VIAL IV SCH (05:06)
[2019-10-23] MEDS: [UNRECOGNIZED DRUG - REMARK] NEB SCH (08:53)
[2019-10-23] MEDS: IPRATROPIUM/ALBUTEROL 0.5-3(2.5)MG/3ML NEB HHN PRN ×2 (08:54→17:01)
[2019-10-23] MEDS: DOCUSATE SODIUM 250MG CAPSULE PO SCH (08:55)
[2019-10-23] MEDS: NIFEDIPINE XL 60MG TAB PO SCH ×2 (08:55→22:04)
[2019-10-23] MEDS: ONDANSETRON HCL 4MG/2ML INJ IV PRN ×2 (08:55→18:34)
[2019-10-23] MEDS: HYDROCORTISONE ACETATE 25MG SUPP PR SCH ×2 (08:56→21:15)
[2019-10-23] MEDS: ENOXAPARIN 40MG/0.4ML SYR SUBCUT SCH (08:56)
[2019-10-23] MEDS: HYDROCODONE/APAP 7.5/325MG 1 TAB TABLET PO PRN (09:30)
[2019-10-23 12:32] LABS: PHOSPHORUS 7.2 mg/dL (2.5-4.9)
[2019-10-23] MEDS: DEXT 5%/0.45% NACL 1000ML 1,000 ML IV SCH (14:36)
[2019-10-23 15:38] LABS: BASOPHILS % 0.3 % (0.0-2.0); EOSINOPHILS % 0.2 % (0.0-5.0); HEMATOCRIT. 34.9 % (36.0-48.0); HEMOGLOBIN. 11.3 g/dL (12.0-16.0); LYMPHOCYTES % 11.2 % (20.0-50.0); MEAN CORPUSCULAR HEMOGLOBIN 27.6 pg (28.0-32.0); MEAN CORPUSCULAR VOLUME 84.9 fL (81.0-99.0); MEAN PLATELET VOLUME 8.4 fl (7.4-10.4); MONOCYTES % 14.8 % (2.0-8.0); NEUTROPHILS % 73.5 % (40.0-76.0); PLATELET 279 x1000/uL (130-400); RED BLOOD CELL COUNT 4.11 mill/uL (4.2-5.4); RED CELL DISTRIBUTION WIDTH 19.6 % (11.6-14.6)
[2019-10-23] MEDS: CINACALCET HCL 30MG TABLET PO SCH (17:00)
[2019-10-24] VITALS (12 sets, daily range): BP systolic 106–134; BP diastolic 28–83
[2019-10-24] MEDS: ACETYLCYSTEINE 100MG/ML 10% VIAL 4ML INH SCH (00:26)
[2019-10-24] MEDS: IPRATROPIUM/ALBUTEROL 0.5-3(2.5)MG/3ML NEB HHN PRN (00:26)
[2019-10-24] MEDS: ONDANSETRON HCL 4MG/2ML INJ IV PRN (02:33)
[2019-10-24] MEDS: DIPHENHYDRAMINE 50MG/ML VIAL IV PRN ×4 (03:19→21:42)
[2019-10-24] MEDS: CLONIDINE 0.1MG TABLET PO SCH ×3 (06:00→22:00)
[2019-10-24] MEDS: HYDRALAZINE HCL 100MG TABLET PO SCH ×3 (06:00→22:00)
[2019-10-24 06:48] LABS: MEAN CORPUSCULAR HEMOGLOBIN 27.7 pg (28.0-32.0); MEAN CORPUSCULAR VOLUME 85.5 fL (81.0-99.0); RED BLOOD CELL COUNT 4.32 mill/uL (4.2-5.4); RED CELL DISTRIBUTION WIDTH 19.6 % (11.6-14.6)
[2019-10-24 08:37] LABS: NUCLEATED RED BLOOD CELLS 1 /100 WBC
[2019-10-24 08:38] LABS: PLATELET ESTIMATE NORMAL
[2019-10-24 08:40] LABS: PLATELET 160 x1000/uL (130-400)
[2019-10-24] MEDS: NIFEDIPINE XL 60MG TAB PO SCH ×2 (08:54→21:00)
[2019-10-24] MEDS: DOCUSATE SODIUM 250MG CAPSULE PO SCH (08:54)
[2019-10-24] MEDS: PREDNISONE 20MG TABLET PO SCH (08:54)
[2019-10-24] MEDS: ENOXAPARIN 40MG/0.4ML SYR SUBCUT SCH (08:55)
[2019-10-24] MEDS: HYDROCORTISONE ACETATE 25MG SUPP PR SCH ×2 (08:55→21:00)
[2019-10-24] MEDS: [UNRECOGNIZED DRUG - REMARK] NEB SCH (09:00)
[2019-10-24] MEDS: METOCLOPRAMIDE HCL 10MG/2ML VIAL IV SCH ×2 (13:19→17:19)
[2019-10-24] MEDS: CINACALCET HCL 30MG TABLET PO SCH (17:00)
[2019-10-24] MEDS: DEXT 5%/0.45% NACL 1000ML 1,000 ML IV SCH (17:19)
[2019-10-25] VITALS (13 sets, daily range): BP systolic 118–147; BP diastolic 58–99
[2019-10-25] MEDS: METOCLOPRAMIDE HCL 10MG/2ML VIAL IV SCH ×4 (00:35→18:35)
[2019-10-25] MEDS: HYDRALAZINE HCL 100MG TABLET PO SCH ×3 (06:00→21:50)
[2019-10-25] MEDS: CLONIDINE 0.1MG TABLET PO SCH ×2 (06:00→14:00)
[2019-10-25 07:00] LABS: BASOPHILS % 0.2 % (0.0-2.0); EOSINOPHILS % 0.3 % (0.0-5.0); HEMATOCRIT. 37.6 % (36.0-48.0); HEMOGLOBIN. 12.1 g/dL (12.0-16.0); LYMPHOCYTES % 9.5 % (20.0-50.0); MEAN CORPUSCULAR HEMOGLOBIN 27.5 pg (28.0-32.0); MEAN CORPUSCULAR VOLUME 85.3 fL (81.0-99.0); MEAN PLATELET VOLUME 8.4 fl (7.4-10.4); MONOCYTES % 10.5 % (2.0-8.0); NEUTROPHILS % 79.5 % (40.0-76.0); PLATELET 256 x1000/uL (130-400); RED CELL DISTRIBUTION WIDTH 19.9 % (11.6-14.6)
[2019-10-25] MEDS: PREDNISONE 20MG TABLET PO SCH (08:58)
[2019-10-25] MEDS: DOCUSATE SODIUM 250MG CAPSULE PO SCH (08:58)
[2019-10-25] MEDS: NIFEDIPINE XL 60MG TAB PO SCH ×2 (08:59→21:00)
[2019-10-25] MEDS: HYDROCORTISONE ACETATE 25MG SUPP PR SCH ×2 (09:00→20:54)
[2019-10-25] MEDS: [UNRECOGNIZED DRUG - REMARK] NEB SCH (09:00)
[2019-10-25] MEDS: ENOXAPARIN 40MG/0.4ML SYR SUBCUT SCH (09:20)
[2019-10-25] MEDS: IPRATROPIUM/ALBUTEROL 0.5-3(2.5)MG/3ML NEB HHN PRN (09:20)
[2019-10-25] MEDS: DIPHENHYDRAMINE 50MG/ML VIAL IV PRN ×3 (09:20→20:55)
[2019-10-25] MEDS: DEXT 5%/0.45% NACL 1000ML 1,000 ML IV SCH (15:10)
[2019-10-25] MEDS ORDERED: CLONIDINE HCL 0.1MG/24HR PATCH TD SCH (16:00)
[2019-10-25] MEDS: CINACALCET HCL 30MG TABLET PO SCH ×2 (17:00→18:33)
[2019-10-25] MEDS: ONDANSETRON HCL 4MG/2ML INJ IV PRN (20:55)
[2019-10-26] VITALS (12 sets, daily range): BP systolic 100–155; BP diastolic 61–110
[2019-10-26] MEDS: LACTULOSE 20G/30ML UDC PO PRN (01:33)
[2019-10-26] MEDS: METOCLOPRAMIDE HCL 10MG/2ML VIAL IV SCH ×4 (01:33→17:54)
[2019-10-26] MEDS: DIPHENHYDRAMINE 50MG/ML VIAL IV PRN ×4 (01:33→22:35)
[2019-10-26] MEDS: HYDRALAZINE HCL 100MG TABLET PO SCH ×3 (05:53→22:00)
[2019-10-26 07:06] LABS: BASOPHILS % 0.3 % (0.0-2.0); HEMATOCRIT. 37.9 % (36.0-48.0); HEMOGLOBIN. 12.4 g/dL (12.0-16.0); LYMPHOCYTES % 10.5 % (20.0-50.0); MEAN CORPUSCULAR HEMOGLOBIN 27.8 pg (28.0-32.0); MEAN CORPUSCULAR VOLUME 85.1 fL (81.0-99.0); MEAN PLATELET VOLUME 8.3 fl (7.4-10.4); MONOCYTES % 9.8 % (2.0-8.0); NEUTROPHILS % 78.4 % (40.0-76.0); PLATELET 247 x1000/uL (130-400); RED BLOOD CELL COUNT 4.45 mill/uL (4.2-5.4); RED CELL DISTRIBUTION WIDTH 19.7 % (11.6-14.6)
[2019-10-26] MEDS: [UNRECOGNIZED DRUG - REMARK] NEB SCH (09:00)
[2019-10-26] MEDS: NIFEDIPINE XL 60MG TAB PO SCH ×2 (09:00→21:00)
[2019-10-26] MEDS: PREDNISONE 20MG TABLET PO SCH (09:00)
[2019-10-26] MEDS: HYDROCORTISONE ACETATE 25MG SUPP PR SCH ×2 (09:00→21:00)
[2019-10-26] MEDS: DOCUSATE SODIUM 250MG CAPSULE PO SCH (09:00)
[2019-10-26] MEDS: ENOXAPARIN 30MG/0.3ML SYR SUBCUT SCH (09:00)
[2019-10-26] MEDS: ONDANSETRON HCL 4MG/2ML INJ IV PRN ×3 (09:37→22:35)
[2019-10-26 13:15] LABS: BASOPHILS % 0.2 % (0.0-2.0); EOSINOPHILS % 1.5 % (0.0-5.0); HEMATOCRIT. 37.7 % (36.0-48.0); HEMOGLOBIN. 12.2 g/dL (12.0-16.0); LYMPHOCYTES % 10.1 % (20.0-50.0); MEAN CORPUSCULAR HEMOGLOBIN 27.5 pg (28.0-32.0); MEAN CORPUSCULAR VOLUME 85.2 fL (81.0-99.0); MEAN PLATELET VOLUME 7.7 fl (7.4-10.4); MONOCYTES % 4.4 % (2.0-8.0); NEUTROPHILS % 83.8 % (40.0-76.0); PLATELET 243 x1000/uL (130-400); RED BLOOD CELL COUNT 4.42 mill/uL (4.2-5.4); RED CELL DISTRIBUTION WIDTH 19.9 % (11.6-14.6)
[2019-10-26] MEDS: DEXT 5%/0.45% NACL 1000ML 1,000 ML IV SCH (14:15)
[2019-10-26] MEDS: PIPERACILLIN/TAZOBACTAM 2.25 G in DEXTROSE 5% WATER 50 ML IV SCH ×2 (16:14→22:35)
[2019-10-26] MEDS: CINACALCET HCL 30MG TABLET PO SCH (17:00)
[2019-10-26] MEDS ORDERED: VANCOMYCIN 1500MG in DEXTROSE 5% WATER 250ML IV SCH (17:00)
[2019-10-26] MEDS: IPRATROPIUM/ALBUTEROL 0.5-3(2.5)MG/3ML NEB HHN PRN (21:51)
[2019-10-27] VITALS (10 sets, daily range): BP systolic 107–155; BP diastolic 53–88
[2019-10-27] MEDS: METOCLOPRAMIDE HCL 10MG/2ML VIAL IV SCH ×3 (00:21→11:56)
[2019-10-27 04:59] LABS: BASOPHILS % 0.3 % (0.0-2.0); EOSINOPHILS % 1.5 % (0.0-5.0); HEMATOCRIT. 36.2 % (36.0-48.0); HEMOGLOBIN. 11.5 g/dL (12.0-16.0); LYMPHOCYTES % 7.4 % (20.0-50.0); MEAN CORPUSCULAR HEMOGLOBIN 27.2 pg (28.0-32.0); MEAN CORPUSCULAR VOLUME 85.6 fL (81.0-99.0); MEAN PLATELET VOLUME 7.8 fl (7.4-10.4); MONOCYTES % 10.7 % (2.0-8.0); NEUTROPHILS % 80.1 % (40.0-76.0); PLATELET 211 x1000/uL (130-400); RED BLOOD CELL COUNT 4.22 mill/uL (4.2-5.4); RED CELL DISTRIBUTION WIDTH 19.6 % (11.6-14.6)
[2019-10-27 05:07] LABS: CHLORIDE 101 mEq/L (98-107)
[2019-10-27] MEDS: PIPERACILLIN/TAZOBACTAM 2.25 G in DEXTROSE 5% WATER 50 ML IV SCH (05:28)
[2019-10-27] MEDS: HYDRALAZINE HCL 100MG TABLET PO SCH ×2 (05:28→14:00)
[2019-10-27] MEDS: ONDANSETRON HCL 4MG/2ML INJ IV PRN ×2 (05:32→10:44)
[2019-10-27] MEDS: DIPHENHYDRAMINE 50MG/ML VIAL IV PRN ×2 (05:32→10:44)
[2019-10-27] MEDS: HYDROCORTISONE ACETATE 25MG SUPP PR SCH (09:00)
[2019-10-27] MEDS: DOCUSATE SODIUM 250MG CAPSULE PO SCH (09:00)
[2019-10-27] MEDS: NIFEDIPINE XL 60MG TAB PO SCH (09:00)
[2019-10-27] MEDS ORDERED: METR500T MT (10:01)
[2019-10-27] MEDS: ENOXAPARIN 30MG/0.3ML SYR SUBCUT SCH (10:24)
[2019-10-27] MEDS: [UNRECOGNIZED DRUG - REMARK] NEB SCH (10:57)
[2019-10-27] MEDS ORDERED: METRONIDAZOLE 500 MG PREMIX 100 ML IV SCH (11:00)
[2019-10-27] MEDS: IPRATROPIUM/ALBUTEROL 0.5-3(2.5)MG/3ML NEB HHN PRN (11:01)
[2019-10-27] MEDS: DEXT 5%/0.45% NACL 1000ML 1,000 ML IV SCH (14:15)
[2019-10-29] MEDS ORDERED: LEVOFLOXACIN 250MG PREMIX 50 ML IV SCH (09:00)
[2019-11-20] MEDS ORDERED: MUC103 INH (14:49)
== END 2019-10-27 15:35 | disposition home or self-care (01) | DRG 205 ==
LOC: ER 19:42 → 5EST 23:58 → EDBEDREQTM 10-14 00:02 → EDBEDREQ 10-14 00:02 → EDBEDREQDT 10-14 00:02 → ENRESERV 10-14 07:45
PROVIDERS: ADMIT Internal Medicine Geriatric Medicine; ATTEND Internal Medicine Geriatric Medicine
PROC: 5A1D70Z Performance of Urinary Filtration, Intermittent, Less than 6 Hours Per Day (ICD-10-PCS; 2019-10-14)
PROC: 5A1D70Z Performance of Urinary Filtration, Intermittent, Less than 6 Hours Per Day (ICD-10-PCS; 2019-10-16)
PROC: 5A1D70Z Performance of Urinary Filtration, Intermittent, Less than 6 Hours Per Day (ICD-10-PCS; 2019-10-17)
PROC: 5A1D70Z Performance of Urinary Filtration, Intermittent, Less than 6 Hours Per Day (ICD-10-PCS; 2019-10-19)
PROC: 5A1D70Z Performance of Urinary Filtration, Intermittent, Less than 6 Hours Per Day (ICD-10-PCS; 2019-10-21)
PROC: 0D9670Z Drainage of Stomach with Drainage Device, Via Natural or Artificial Opening (ICD-10-PCS; 2019-10-21)
PROC: 5A1D70Z Performance of Urinary Filtration, Intermittent, Less than 6 Hours Per Day (ICD-10-PCS; 2019-10-23)
PROC: 5A1D70Z Performance of Urinary Filtration, Intermittent, Less than 6 Hours Per Day (ICD-10-PCS; principal; 2019-10-26)
DX: M94.0 Chondrocostal junction syndrome [Tietze] (principal); J96.22 Acute and chronic respiratory failure with hypercapnia; N18.6 End stage renal disease; J96.21 Acute and chronic respiratory failure with hypoxia; K56.600 Partial intestinal obstruction, unspecified as to cause; J44.1 Chronic obstructive pulmonary disease with (acute) exacerbation; E44.1 Mild protein-calorie malnutrition; E87.1 Hypo-osmolality and hyponatremia; E87.2 Acidosis; K56.7 Ileus, unspecified; N17.9 Acute kidney failure, unspecified; D63.8 Anemia in other chronic diseases classified elsewhere; E83.39 Other disorders of phosphorus metabolism; J38.02 Paralysis of vocal cords and larynx, bilateral; E87.5 Hyperkalemia; Z96.642 Presence of left artificial hip joint; F41.9 Anxiety disorder, unspecified; G47.30 Sleep apnea, unspecified; G89.4 Chronic pain syndrome; F17.210 Nicotine dependence, cigarettes, uncomplicated; E66.9 Obesity, unspecified; K57.90 Diverticulosis of intestine, part unspecified, without perforation or abscess without bleeding; B19.20 Unspecified viral hepatitis C without hepatic coma; M19.012 Primary osteoarthritis, left shoulder; M77.9 Enthesopathy, unspecified; M75.52 Bursitis of left shoulder; K64.8 Other hemorrhoids; Z68.34 Body mass index [BMI] 34.0-34.9, adult; Z79.899 Other long term (current) drug therapy; Z93.0 Tracheostomy status; Z88.1 Allergy status to other antibiotic agents; Z88.8 Allergy status to other drugs, medicaments and biological substances; Z99.2 Dependence on renal dialysis; Z90.710 Acquired absence of both cervix and uterus; Z90.49 Acquired absence of other specified parts of digestive tract; Z83.3 Family history of diabetes mellitus; Z82.49 Family history of ischemic heart disease and other diseases of the circulatory system; Z79.51 Long term (current) use of inhaled steroids; K52.9 Noninfective gastroenteritis and colitis, unspecified
CPT/HCPCS: 36415; 71045; 73030; 73221; 74018; 74176; 80048; 80053; 80061; 80076; 81003; 82550; 82553; 83605; 83735; 83970; 84100; 84145; 84443; 84484; 85025; 85379; 87015; 87045; 87427; 87449; 93005; 93306; 93970; 93971; 94640; 96365; 96375; 97116; 97162; 97167; 97530; 99291; A6261; J1170; J1200; J1580; J1650; J2060; J2270; J2405; J2543; J2765; J2920; J2930; J3370; J3490; J7030; J7042; J7060; J7512; J7608; J7626; Q9963

== ENCOUNTER 2019-11-05 11:10 | Inpatient (IN) | payer MEDICARE, MEDICAID ==
[~2019-11-05] VITALS: Ht 157.5 cm; Wt 82.6 kg
[~2019-11-05 11:10] MED LIST changes: +HYDR-3282 MT; +LINA290C MT; +METR500T MT
[2019-11-05] MEDS: HYDROCODONE/ACETAMINOPHEN 5/325MG TABLET PO PRN ×2 (13:55→23:31)
[2019-11-05 14:19] VITALS: BP 128/84
[2019-11-05] MEDS ORDERED: DIPHENHYDRAMINE 50MG/ML VIAL IV NR (15:45)
[2019-11-05 15:51] LABS: BASOPHILS % 0.5 % (0.0-2.0); EOSINOPHILS % 4.7 % (0.0-5.0); HEMATOCRIT. 29.2 % (36.0-48.0); HEMOGLOBIN. 9.3 g/dL (12.0-16.0); LYMPHOCYTES % 8.8 % (20.0-50.0); MEAN CORPUSCULAR HEMOGLOBIN 27.5 pg (28.0-32.0); MEAN CORPUSCULAR VOLUME 86.6 fL (81.0-99.0); MEAN PLATELET VOLUME 7.9 fl (7.4-10.4); MONOCYTES % 8.1 % (2.0-8.0); NEUTROPHILS % 77.9 % (40.0-76.0); PLATELET 294 x1000/uL (130-400); RED BLOOD CELL COUNT 3.37 mill/uL (4.2-5.4); RED CELL DISTRIBUTION WIDTH 20.4 % (11.6-14.6)
[2019-11-05] MEDS ORDERED: IPRATROPIUM/ALBUTEROL 0.5-3(2.5)MG/3ML NEB HHN SCH (16:00)
[2019-11-05 16:32] VITALS: BP 166/86
[2019-11-05] MEDS: IPRATROPIUM/ALBUTEROL 0.5-3(2.5)MG/3ML NEB HHN SCH ×2 (17:09→21:54)
[2019-11-05] MEDS ORDERED: DIPHENHYDRAMINE 50MG CAPSULE PO PRN ×2 (18:00→20:45)
[2019-11-05] MEDS ORDERED: CYCLOBENZAPRINE 10MG TABLET PO PRN (18:00)
[2019-11-05] MEDS ORDERED: ZOLPIDEM TARTRATE 5MG TABLET PO PRN (18:09)
[2019-11-05 20:00] VITALS: BP 139/76
[2019-11-05] MEDS ORDERED: DIPHENHYDRAMINE 50MG/ML VIAL IV ONE (20:15)
[2019-11-05] MEDS ORDERED: DIPHENHYDRAMINE 50MG/ML VIAL IV PRN (20:15)
[2019-11-05] MEDS ORDERED: TEMAZEPAM 15MG CAPSULE PO PRN (20:15)
[2019-11-05 20:35] LABS: BASOPHILS % 0.5 % (0.0-2.0); HEMATOCRIT. 24.3 % (36.0-48.0); HEMOGLOBIN. 7.8 g/dL (12.0-16.0); LYMPHOCYTES % 8.5 % (20.0-50.0); MEAN CORPUSCULAR HEMOGLOBIN 27.4 pg (28.0-32.0); MEAN PLATELET VOLUME 7.9 fl (7.4-10.4); MONOCYTES % 8.1 % (2.0-8.0); NEUTROPHILS % 76.9 % (40.0-76.0); PLATELET 258 x1000/uL (130-400); RED BLOOD CELL COUNT 2.86 mill/uL (4.2-5.4); RED CELL DISTRIBUTION WIDTH 20.8 % (11.6-14.6)
[2019-11-05] MEDS ORDERED: ONDANSETRON HCL 4MG/2ML INJ IV NR ×2 (21:00→21:16)
[2019-11-05] MEDS: HYDRALAZINE HCL 100MG TABLET PO SCH (21:30)
[2019-11-05] MEDS: METRONIDAZOLE 500MG TABLET PO SCH (21:30)
[2019-11-05] MEDS ORDERED: ACETYLCYSTEINE 200MG/ML 20% VIAL 4ML INH SCH (22:00)
[2019-11-06] VITALS (9 sets, daily range): BP systolic 108–145; BP diastolic 63–82
[2019-11-06] MEDS: IPRATROPIUM/ALBUTEROL 0.5-3(2.5)MG/3ML NEB HHN SCH ×2 (01:32→09:42)
[2019-11-06] MEDS: HYDRALAZINE HCL 100MG TABLET PO SCH (05:43)
[2019-11-06 07:24] LABS: BASOPHILS % 0.8 % (0.0-2.0); EOSINOPHILS % 6.9 % (0.0-5.0); HEMATOCRIT. 28.2 % (36.0-48.0); HEMOGLOBIN. 9.3 g/dL (12.0-16.0); LYMPHOCYTES % 11.6 % (20.0-50.0); MEAN CORPUSCULAR HEMOGLOBIN 28.1 pg (28.0-32.0); MEAN CORPUSCULAR VOLUME 85.5 fL (81.0-99.0); MEAN PLATELET VOLUME 7.6 fl (7.4-10.4); MONOCYTES % 9.9 % (2.0-8.0); NEUTROPHILS % 70.8 % (40.0-76.0); PLATELET 254 x1000/uL (130-400); RED BLOOD CELL COUNT 3.29 mill/uL (4.2-5.4)
[2019-11-06] MEDS ORDERED: CINACALCET HCL 30MG TABLET PO SCH (07:40)
[2019-11-06] MEDS ORDERED: DOCUSATE SODIUM 250MG CAPSULE PO SCH (09:00)
[2019-11-06] MEDS ORDERED: NIFEDIPINE XL 90MG TAB PO SCH (09:00)
[2019-11-06] MEDS: METRONIDAZOLE 500MG TABLET PO SCH (09:12)
[2019-11-06] MEDS ORDERED: DIPHENHYDRAMINE 50MG/ML VIAL IV PRN (10:45)
[2019-11-20] MEDS ORDERED: MUC103 INH (14:49)
== END 2019-11-06 13:15 | disposition home or self-care (01) | DRG 640 ==
LOC: 8WST 11:10
PROVIDERS: ADMIT Internal Medicine Geriatric Medicine; ATTEND Internal Medicine Geriatric Medicine
PROC: 5A1D70Z Performance of Urinary Filtration, Intermittent, Less than 6 Hours Per Day (ICD-10-PCS; 2019-11-05)
PROC: 30233N1 Transfusion of Nonautologous Red Blood Cells into Peripheral Vein, Percutaneous Approach (ICD-10-PCS; principal; 2019-11-06)
PROC: 5A1D70Z Performance of Urinary Filtration, Intermittent, Less than 6 Hours Per Day (ICD-10-PCS; 2019-11-06)
DX: E87.70 Fluid overload, unspecified (principal); N18.6 End stage renal disease; I12.0 Hypertensive chronic kidney disease with stage 5 chronic kidney disease or end stage renal disease; J96.10 Chronic respiratory failure, unspecified whether with hypoxia or hypercapnia; F11.20 Opioid dependence, uncomplicated; D63.1 Anemia in chronic kidney disease; F41.1 Generalized anxiety disorder; E66.01 Morbid (severe) obesity due to excess calories; K59.09 Other constipation; E21.3 Hyperparathyroidism, unspecified; G89.4 Chronic pain syndrome; J44.9 Chronic obstructive pulmonary disease, unspecified; Z79.51 Long term (current) use of inhaled steroids; Z79.899 Other long term (current) drug therapy; Z87.11 Personal history of peptic ulcer disease; Z90.49 Acquired absence of other specified parts of digestive tract; Z99.2 Dependence on renal dialysis; Z90.710 Acquired absence of both cervix and uterus; Z93.0 Tracheostomy status; Z88.1 Allergy status to other antibiotic agents; Z88.8 Allergy status to other drugs, medicaments and biological substances; Z68.33 Body mass index [BMI] 33.0-33.9, adult; Z98.891 History of uterine scar from previous surgery
CPT/HCPCS: 36415; 80048; 83540; 83550; 85025; 86850; 86900; 86920; 94640; J1200; J7040; J7608; P9016; Q0163

== ENCOUNTER 2019-11-14 19:24 | Inpatient (IN) | payer MEDICARE, MEDICAID ==
[~2019-11-14] VITALS: Ht 160 cm; Wt 83.7 kg
[~2019-11-14 19:24] MED LIST changes: -PULM50 NEB
[2019-11-14] MEDS ORDERED: ONDANSETRON HCL 4MG/2ML INJ IV STA (20:16)
[2019-11-14] MEDS ORDERED: MORPHINE SULFATE 4 MG/ML CPJ (NOT FOR IM USE) IV STA (20:16)
[2019-11-14] MEDS ORDERED: IPRATROPIUM BROMIDE (0.02%) 0.5MG/2.5ML NEB HHN ONE ×2 (20:30→23:30)
[2019-11-14] MEDS ORDERED: CLONIDINE 0.1MG TABLET PO PRN (20:45)
[2019-11-14] MEDS ORDERED: CYCLOBENZAPRINE 10MG TABLET PO PRN (20:45)
[2019-11-14] MEDS ORDERED: DOCUSATE SODIUM 100MG CAPSULE PO PRN (20:45)
[2019-11-14] MEDS ORDERED: ONDANSETRON HCL 4MG/2ML INJ IV PRN (20:45)
[2019-11-14] MEDS ORDERED: ACETAMINOPHEN 325MG TABLET PO PRN (20:45)
[2019-11-14 20:56] LABS: BASOPHILS % 0.5 % (0.0-2.0); EOSINOPHILS % 9.4 % (0.0-5.0); HEMATOCRIT. 29.8 % (36.0-48.0); HEMOGLOBIN. 9.7 g/dL (12.0-16.0); LYMPHOCYTES % 14.4 % (20.0-50.0); MEAN CORPUSCULAR HEMOGLOBIN 27.7 pg (28.0-32.0); MEAN CORPUSCULAR VOLUME 85.5 fL (81.0-99.0); MONOCYTES % 12.7 % (2.0-8.0); PLATELET 333 x1000/uL (130-400); RED BLOOD CELL COUNT 3.49 mill/uL (4.2-5.4); RED CELL DISTRIBUTION WIDTH 20.5 % (11.6-14.6)
[2019-11-14 21:03] LABS: CHLORIDE 104 mEq/L (98-107)
[2019-11-14 21:04] LABS: INR 1.1; PARTIAL THROMBOPLASTIN TIME 33.6 sec (23.4-31.0); PROTHROMBIN TIME 10.9 sec (9.6-11.0)
[2019-11-14 21:13] LABS: BG BASE EXCESS 1.9 mmol/L (-2.0-2.0); BG CARBOXYHEMOGLOBIN 0.7 % (0.5-1.5); BG DEOXYHEMOGLOBIN 4.8 % (0.0-5.0); BG FRACTION INSPIRED OXYGEN 21; BG HCO3 ACT 24.5 mmol/L (22.0-26.0); BG METHEMOGLOBIN 0.3 % (0.0-1.5); BG OXYGEN SATURATION 95.2 % (92.0-98.5); BG OXYHEMOGLOBIN 94.2 % (94.0-97.0); BG PCO2 31.8 mmHg (35.0-45.0); BG PH 7.504 (7.350-7.450); BG PO2 71.7 mmHg (75.0-100.0); BG SAMPLE SITE RIGHT BRACHIAL; BG TOTAL HEMOGLOBIN 12.6 g/dL (12.0-18.0); BG VENT MODE ROOM AIR
[2019-11-14] MEDS ORDERED: DIPHENHYDRAMINE 50MG/ML VIAL IV ONE (21:45)
[2019-11-14] MEDS ORDERED: CEFTRIAXONE 1 G PREMIX 50 ML IV NR (22:15)
[2019-11-14] MEDS ORDERED: METHYLPREDNISOLONE SOD SUCC 125 MG/2 ML VIAL IV NR (22:15)
[2019-11-15] MEDS: LORAZEPAM 1MG TABLET PO PRN ×2 (00:29→10:55)
[2019-11-15] MEDS: MORPHINE SULFATE 2 MG/ML CPJ (NOT FOR IM USE) IV PRN ×2 (02:03→08:23)
[2019-11-15] MEDS ORDERED: KETOROLAC 30MG/ML VIAL IV ONE (05:00)
[2019-11-15] MEDS ORDERED: METHYLPREDNISOLONE SOD SUCC 125 MG/2 ML VIAL IV SCH (08:30)
[2019-11-15 08:39] LABS: BASOPHILS % 0.4 % (0.0-2.0); EOSINOPHILS % 0.6 % (0.0-5.0); HEMATOCRIT. 32.1 % (36.0-48.0); HEMOGLOBIN. 10.4 g/dL (12.0-16.0); MEAN CORPUSCULAR HEMOGLOBIN 27.9 pg (28.0-32.0); MEAN PLATELET VOLUME 6.8 fl (7.4-10.4); MONOCYTES % 2.7 % (2.0-8.0); NEUTROPHILS % 88.3 % (40.0-76.0); PLATELET 296 x1000/uL (130-400); RED BLOOD CELL COUNT 3.73 mill/uL (4.2-5.4); RED CELL DISTRIBUTION WIDTH 20.3 % (11.6-14.6)
[2019-11-15] MEDS: LANTHANUM CARBONATE 500MG CHEW TABLET PO SCH ×3 (09:00→17:56)
[2019-11-15] MEDS: HYDRALAZINE HCL 100MG TABLET PO SCH ×3 (09:01→20:22)
[2019-11-15 09:06] LABS: CHLORIDE 104 mEq/L (98-107)
[2019-11-15] MEDS: NIFEDIPINE XL 90MG TAB PO SCH (09:06)
[2019-11-15 09:13] LABS: LDL CHOLESTEROL 77 mg/dL (5-100)
[2019-11-15 09:14] LABS: HDL CHOLESTEROL 65 mg/dL (40-59)
[2019-11-15] MEDS ORDERED: SODIUM BICARBONATE 8.4% 1 MEQ/ML 50ML SYR IV STA (09:35)
[2019-11-15] MEDS ORDERED: DEXTROSE 50% WATER 50ML SYRINGE IV STA (09:35)
[2019-11-15] MEDS ORDERED: INSULIN REGULAR (HUMULIN R) 300UNITS/3ML IV NR (09:44)
[2019-11-15] MEDS ORDERED: SODIUM POLYSTYRENE SULFONATE 15 G/60 ML BOT PO NR (09:45)
[2019-11-15] MEDS: FOLIC ACID/VITAMIN B COMP W-C TABLET PO SCH (10:53)
[2019-11-15] MEDS: HYDROMORPHONE HCL/PF 2MG/ML CPJ IM PRN ×2 (15:28→21:49)
[2019-11-15] MEDS: METHYLPREDNISOLONE SOD SUCC 40 MG/ML VIAL IV SCH ×2 (15:30→21:49)
[2019-11-15 16:00] VITALS: BP 116/58
[2019-11-15] MEDS ORDERED: DIPHENHYDRAMINE 50MG CAPSULE PO NR (17:00)
[2019-11-15] MEDS ORDERED: DIPHENHYDRAMINE 50MG/ML VIAL IV NR (17:15)
[2019-11-15 20:00] VITALS: BP 96/42
[2019-11-15] MEDS ORDERED: DEXTROSE 50% WATER 50ML SYRINGE IV PRN (20:00)
[2019-11-15] MEDS ORDERED: CEFTRIAXONE 1 G PREMIX 50 ML IV SCH (21:00)
[2019-11-15] MEDS: INSULIN LISPRO 100 UNITS/ML SUBCUT SCH (21:00)
[2019-11-15] MEDS: BLOOD SUGAR DIAGNOSTIC STRIP TEST SCH (21:34)
[2019-11-16] VITALS: BP 120/55
[2019-11-16] MEDS: DIPHENHYDRAMINE 50MG/ML VIAL IV PRN ×2 (00:42→11:23)
[2019-11-16] MEDS: IPRATROPIUM/ALBUTEROL 0.5-3(2.5)MG/3ML NEB HHN SCH ×2 (03:19→08:41)
[2019-11-16 04:00] VITALS: BP 126/62
[2019-11-16] MEDS: BLOOD SUGAR DIAGNOSTIC STRIP TEST SCH (06:11)
[2019-11-16] MEDS: METHYLPREDNISOLONE SOD SUCC 40 MG/ML VIAL IV SCH (06:18)
[2019-11-16] MEDS: HYDRALAZINE HCL 100MG TABLET PO SCH (06:19)
[2019-11-16 08:00] VITALS: BP 110/62
[2019-11-16] MEDS: INSULIN LISPRO 100 UNITS/ML SUBCUT SCH ×2 (08:10→12:28)
[2019-11-16] MEDS: LANTHANUM CARBONATE 500MG CHEW TABLET PO SCH ×2 (08:47→12:28)
[2019-11-16] MEDS: FOLIC ACID/VITAMIN B COMP W-C TABLET PO SCH (08:47)
[2019-11-16] MEDS: NIFEDIPINE XL 90MG TAB PO SCH (08:47)
[2019-11-16] MEDS ORDERED: DIPHENHYDRAMINE 25MG CAPSULE PO PRN (09:00)
[2019-11-16] MEDS ORDERED: NON FORMULARY PATIENT HOME MED XX SCH (09:00)
[2019-11-16] MEDS ORDERED: NIFEDIPINE XL 90MG TAB PO SCH (09:00)
[2019-11-16] MEDS ORDERED: HYDROCODONE/ACETAMINOPHEN 10/325MG TABLET PO PRN (09:00)
[2019-11-16] MEDS ORDERED: DOCUSATE SODIUM 250MG CAPSULE PO SCH (10:00)
[2019-11-16] MEDS: HYDROMORPHONE HCL/PF 2MG/ML CPJ IM PRN (10:10)
[2019-11-16 10:12] LABS: HEMOGLOBIN. 10.7 g/dL (12.0-16.0); MEAN CORPUSCULAR HEMOGLOBIN 27.5 pg (28.0-32.0); MEAN PLATELET VOLUME 7.2 fl (7.4-10.4); PLATELET 333 x1000/uL (130-400); RED BLOOD CELL COUNT 3.91 mill/uL (4.2-5.4); RED CELL DISTRIBUTION WIDTH 20.3 % (11.6-14.6)
[2019-11-16] MEDS ORDERED: ARFORMOTEROL TARTRATE 15MCG/2ML NEB NEB SCH (11:00)
[2019-11-16 12:30] VITALS: BP 123/56
[2019-11-16 12:44] VITALS: BP 123/56
[2019-11-16] MEDS ORDERED: CINACALCET HCL 30MG TABLET PO SCH (13:10)
[2019-11-16 13:16] LABS: PLATELET ESTIMATE NORMAL
[2019-11-16] MEDS ORDERED: ACETYLCYSTEINE 100MG/ML 10% VIAL 4ML INH SCH (14:00)
[2019-11-16] MEDS ORDERED: HYDRALAZINE HCL 50MG TABLET PO SCH (14:00)
[2019-11-16 14:52] VITALS: BP 123/56
[2019-11-16] MEDS ORDERED: MONTELUKAST SODIUM 10MG TABLET PO SCH (17:00)
[2019-11-16] MEDS ORDERED: ZOLPIDEM TARTRATE 5MG TABLET PO PRN (21:00)
[2019-11-20] MEDS ORDERED: MUC103 INH (14:49)
== END 2019-11-16 15:40 | disposition home or self-care (01) | DRG 682 ==
LOC: ER 19:24 → EDBEDREQTM 11-15 09:30 → EDBEDREQSVC 11-15 09:30 → ENRESERV 11-15 13:26 → 7WST 11-15 15:07
PROVIDERS: ADMIT Internal Medicine Nephrology; ATTEND Internal Medicine Nephrology
PROC: 5A1D70Z Performance of Urinary Filtration, Intermittent, Less than 6 Hours Per Day (ICD-10-PCS; principal; 2019-11-15)
DX: N17.9 Acute kidney failure, unspecified (principal); G92 Toxic encephalopathy; J44.1 Chronic obstructive pulmonary disease with (acute) exacerbation; E66.2 Morbid (severe) obesity with alveolar hypoventilation; F02.81 Dementia in other diseases classified elsewhere, unspecified severity, with behavioral disturbance; I12.0 Hypertensive chronic kidney disease with stage 5 chronic kidney disease or end stage renal disease; J96.11 Chronic respiratory failure with hypoxia; J96.12 Chronic respiratory failure with hypercapnia; E44.0 Moderate protein-calorie malnutrition; N18.6 End stage renal disease; E87.5 Hyperkalemia; E11.22 Type 2 diabetes mellitus with diabetic chronic kidney disease; E86.0 Dehydration; E87.70 Fluid overload, unspecified; F32.9 Major depressive disorder, single episode, unspecified; F41.9 Anxiety disorder, unspecified; G30.9 Alzheimer's disease, unspecified; K76.0 Fatty (change of) liver, not elsewhere classified; Z96.642 Presence of left artificial hip joint; D63.1 Anemia in chronic kidney disease; F41.1 Generalized anxiety disorder; J38.01 Paralysis of vocal cords and larynx, unilateral; R82.81 Pyuria; Z79.899 Other long term (current) drug therapy; Z82.49 Family history of ischemic heart disease and other diseases of the circulatory system; Z83.3 Family history of diabetes mellitus; Z87.891 Personal history of nicotine dependence; Z90.710 Acquired absence of both cervix and uterus; Z93.0 Tracheostomy status; Z99.2 Dependence on renal dialysis; Z99.81 Dependence on supplemental oxygen; Z68.32 Body mass index [BMI] 32.0-32.9, adult; Z88.8 Allergy status to other drugs, medicaments and biological substances
CPT/HCPCS: 36415; 36600; 71045; 76642; 80048; 80053; 80061; 82375; 82805; 82962; 83605; 83880; 84132; 84484; 85025; 93005; 94640; 96365; 96366; 96372; 96375; 99291; J0696; J1170; J1200; J1815; J1885; J2270; J2405; J2920; J2930; J3490; J7608; J7620

== ENCOUNTER 2020-02-21 12:13 | Inpatient (IN) | payer MEDICARE, MEDICAID ==
[~2020-02-21] VITALS: Ht 162.6 cm; Wt 77.1 kg
[~2020-02-21 12:13] MED LIST changes: +MUC103 INH
[2020-02-21] MEDS ORDERED: ARFO15VI2 IH (12:31)
[2020-02-21] MEDS ORDERED: BUDE0.5A3 IH (12:32)
[2020-02-21] MEDS ORDERED: DAPT350V IV (12:35)
[2020-02-21] MEDS ORDERED: REVE175V IH (12:35)
[2020-02-21] MEDS ORDERED: IPRA3AMP9 HHN (12:35)
[2020-02-21] MEDS ORDERED: IPRATROPIUM BROMIDE (0.02%) 0.5MG/2.5ML NEB HHN STA (13:11)
[2020-02-21] MEDS ORDERED: METHYLPREDNISOLONE SOD SUCC 125 MG/2 ML VIAL IV STA (13:11)
[2020-02-21] MEDS ORDERED: ALBUTEROL (0.083%) 2.5MG/3ML NEB HHN STA ×2 (13:11→14:25)
[2020-02-21] MEDS ORDERED: VANCOMYCIN 1 G PREMIX 200 ML IV ONE (13:15)
[2020-02-21] MEDS ORDERED: PIPERACILLIN/TAZ 3.375G PREMIX 50 ML IV ONE (13:15)
[2020-02-21] MEDS ORDERED: SODIUM CHLORIDE 0.9% 1000ML BAG (SEPSIS BOLUS) IV ONE (13:15)
[2020-02-21] MEDS ORDERED: ALBUTEROL (0.083%) 2.5MG/3ML NEB ONE (13:19)
[2020-02-21] MEDS ORDERED: IPRATROPIUM BROMIDE (0.02%) 0.5MG/2.5ML NEB ONE (13:19)
[2020-02-21] MEDS ORDERED: MORPHINE SULFATE 4 MG/ML CPJ (NOT FOR IM USE) IV STA (13:36)
[2020-02-21] MEDS ORDERED: ONDANSETRON HCL 4MG/2ML INJ IV STA (13:36)
[2020-02-21 14:00] LABS: BG BASE EXCESS 2.8 mmol/L (-2.0-2.0); BG CARBOXYHEMOGLOBIN 0.5 % (0.5-1.5); BG DEOXYHEMOGLOBIN 0.1 % (0.0-5.0); BG FRACTION INSPIRED OXYGEN 60; BG HCO3 ACT 26.7 mmol/L (22.0-26.0); BG METHEMOGLOBIN 0.2 % (0.0-1.5); BG OXYGEN SATURATION 99.9 % (92.0-98.5); BG OXYHEMOGLOBIN 99.2 % (94.0-97.0); BG PCO2 37.8 mmHg (35.0-45.0); BG PH 7.467 (7.350-7.450); BG PO2 372.9 mmHg (75.0-100.0); BG SAMPLE SITE RIGHT RADIAL; BG TOTAL HEMOGLOBIN 8.1 g/dL (12.0-18.0)
[2020-02-21 15:11] LABS: CHLORIDE 99 mEq/L (98-107)
[2020-02-21 15:13] LABS: INR 1.1; PARTIAL THROMBOPLASTIN TIME 30.2 sec (23.4-31.0)
[2020-02-21 15:20] LABS: HEMATOCRIT. 23.8 % (36.0-48.0); HEMOGLOBIN. 7.7 g/dL (12.0-16.0); MEAN CORPUSCULAR HEMOGLOBIN 28.1 pg (28.0-32.0); MEAN CORPUSCULAR VOLUME 86.7 fL (81.0-99.0); MEAN PLATELET VOLUME 7.9 fl (7.4-10.4); PLATELET 629 x1000/uL (130-400); RED BLOOD CELL COUNT 2.75 mill/uL (4.2-5.4); RED CELL DISTRIBUTION WIDTH 18.6 % (11.6-14.6)
[2020-02-21] MEDS ORDERED: SODIUM BICARBONATE 8.4% 1 MEQ/ML 50ML SYR IV ONE (15:45)
[2020-02-21] MEDS ORDERED: SODIUM POLYSTYRENE SULFONATE 15 G/60 ML BOT PO ONE (15:45)
[2020-02-21] MEDS ORDERED: INSULIN REGULAR (HUMULIN R) 300UNITS/3ML IV ONE (15:45)
[2020-02-21] MEDS ORDERED: DEXTROSE 50% WATER 50ML SYRINGE IV ONE (15:45)
[2020-02-21 16:17] LABS: PLATELET ESTIMATE INCREASED
[2020-02-21] MEDS ORDERED: MORPHINE SULFATE 4 MG/ML CPJ (NOT FOR IM USE) IV ONE (17:00)
[2020-02-21] MEDS ORDERED: GUAIFENESIN 200MG/10ML SUGAR FREE UDC PO PRN (17:30)
[2020-02-21] MEDS ORDERED: ENOXAPARIN 40MG/0.4ML SYR SUBCUT SCH (17:30)
[2020-02-21] MEDS ORDERED: DOCUSATE SODIUM 100MG CAPSULE PO PRN (17:30)
[2020-02-21] MEDS ORDERED: ONDANSETRON HCL 4MG/2ML INJ IV PRN (17:30)
[2020-02-21] MEDS ORDERED: CLONIDINE 0.1MG TABLET PO PRN (17:30)
[2020-02-21] MEDS: HYDROCODONE/ACETAMINOPHEN 5/325MG TABLET PO PRN (20:30)
[2020-02-21] MEDS: DIPHENHYDRAMINE 25MG CAPSULE PO PRN (20:30)
[2020-02-21] MEDS: LORAZEPAM 0.5MG TABLET PO PRN (20:42)
[2020-02-22] MEDS ORDERED: PIPERACILLIN/TAZ 3.375G PREMIX 50 ML IV SCH ×2 (02:15→18:00)
[2020-02-22] MEDS ORDERED: PIPERACILLIN/TAZOBACTAM 3.375 G in DEXT 5% WATER 100 ML IV SCH (02:30)
[2020-02-22] MEDS: LORAZEPAM 0.5MG TABLET PO PRN (03:52)
[2020-02-22 06:01] LABS: BASOPHILS % 0.2 % (0.0-2.0); EOSINOPHILS % 0.1 % (0.0-5.0); HEMATOCRIT. 23.6 % (36.0-48.0); HEMOGLOBIN. 7.6 g/dL (12.0-16.0); LYMPHOCYTES % 12.5 % (20.0-50.0); MEAN CORPUSCULAR VOLUME 87.6 fL (81.0-99.0); MEAN PLATELET VOLUME 7.3 fl (7.4-10.4); MONOCYTES % 7.9 % (2.0-8.0); NEUTROPHILS % 79.3 % (40.0-76.0); PLATELET 495 x1000/uL (130-400); RED CELL DISTRIBUTION WIDTH 18.7 % (11.6-14.6)
[2020-02-22] MEDS ORDERED: LORAZEPAM 2MG/ML CPJ IV ONE (07:00)
[2020-02-22] MEDS ORDERED: PIPERACILLIN/TAZOBACTAM 2.25 G in DEXTROSE 5% WATER 50 ML IV SCH ×2 (10:30→14:00)
[2020-02-22 13:30] VITALS: BP 126/67
[2020-02-22] MEDS ORDERED: ALBUTEROL 6.7GM HFA INHALER ORI PRN ×2 (14:00→18:30)
[2020-02-22] MEDS ORDERED: VANCOMYCIN 500 MG PREMIX 100 ML IV SCH (15:00)
[2020-02-22 16:00] VITALS: BP 124/63
[2020-02-22] MEDS: ENOXAPARIN 30MG/0.3ML SYR SUBCUT SCH (16:03)
[2020-02-22] MEDS: HYDRALAZINE HCL 50MG TABLET PO SCH (16:04)
[2020-02-22] MEDS: MONTELUKAST SODIUM 10MG TABLET PO SCH (17:00)
[2020-02-22 20:00] VITALS: BP 91/71
[2020-02-22] MEDS ORDERED: MIRTAZAPINE 15MG TABLET PO SCH (21:00)
[2020-02-23] VITALS (11 sets, daily range): BP systolic 107–148; BP diastolic 51–78
[2020-02-23] MEDS: HYDRALAZINE HCL 50MG TABLET PO SCH ×5 (01:06→21:20)
[2020-02-23] MEDS: IPRATROPIUM/ALBUTEROL 0.5-3(2.5)MG/3ML NEB HHN SCH ×6 (04:29→21:04)
[2020-02-23] MEDS: ENOXAPARIN 30MG/0.3ML SYR SUBCUT SCH (09:00)
[2020-02-23] MEDS: FOLIC ACID/VITAMIN B COMP W-C TABLET PO SCH (09:57)
[2020-02-23] MEDS: HYDROCODONE/ACETAMINOPHEN 5/325MG TABLET PO PRN (09:58)
[2020-02-23] MEDS: DULOXETINE HCL 20MG DR CAPSULE PO SCH (09:58)
[2020-02-23] MEDS ORDERED: PANTOPRAZOLE 40MG DR TABLET PO NR (10:00)
[2020-02-23] MEDS ORDERED: VANCOMYCIN 500 MG PREMIX 100 ML IV NR (12:00)
[2020-02-23] MEDS: ACETYLCYSTEINE 100MG/ML 10% VIAL 4ML INH SCH (12:20)
[2020-02-23] MEDS: LIDOCAINE 5% PATCH TOP SCH (12:23)
[2020-02-23] MEDS: FERRIC CITRATE PO SCH ×2 (12:50→17:36)
[2020-02-23] MEDS: YUPELRI 175 MCG/3 ML XX SCH (13:00)
[2020-02-23] MEDS ORDERED: SODIUM BICARBONATE 4% (2.4MEQ) 5ML VIAL IV ONE (13:12)
[2020-02-23] MEDS ORDERED: LIDOCAINE HCL 1% 20ML VIAL (Pyxis) INJ ONE (13:13)
[2020-02-23] MEDS ORDERED: IOHEXOL-300 50 ML BOTTLE IV ONE (13:20)
[2020-02-23 15:32] LABS: CARCINO EMBRYONIC ANTIGEN 1.4 ng/ml
[2020-02-23] MEDS: ARFORMOTEROL TARTRATE 15MCG/2ML NEB NEB SCH ×2 (16:56→21:04)
[2020-02-23] MEDS: AURYXIA 210 MG PO SCH (17:00)
[2020-02-23] MEDS: MONTELUKAST SODIUM 10MG TABLET PO SCH (17:36)
[2020-02-23] MEDS ORDERED: FERROUS SULFATE 325MG TABLET PO SCH (17:50)
[2020-02-24] VITALS: BP 108/48
[2020-02-24] MEDS: ACETYLCYSTEINE 100MG/ML 10% VIAL 4ML INH SCH ×3 (00:36→18:05)
[2020-02-24] MEDS: IPRATROPIUM/ALBUTEROL 0.5-3(2.5)MG/3ML NEB HHN SCH ×5 (00:36→22:48)
[2020-02-24 04:00] VITALS: BP 124/56
[2020-02-24] MEDS: HYDRALAZINE HCL 50MG TABLET PO SCH ×3 (06:00→22:05)
[2020-02-24] MEDS: PANTOPRAZOLE 40MG DR TABLET PO SCH (06:13)
[2020-02-24 06:25] LABS: HEMATOCRIT. 26.8 % (36.0-48.0); HEMOGLOBIN. 8.7 g/dL (12.0-16.0); MEAN CORPUSCULAR HEMOGLOBIN 28.6 pg (28.0-32.0); MEAN CORPUSCULAR VOLUME 87.9 fL (81.0-99.0); PLATELET 453 x1000/uL (130-400); RED BLOOD CELL COUNT 3.05 mill/uL (4.2-5.4)
[2020-02-24 08:00] VITALS: BP 126/66
[2020-02-24] MEDS: FOLIC ACID/VITAMIN B COMP W-C TABLET PO SCH (09:10)
[2020-02-24] MEDS: DULOXETINE HCL 20MG DR CAPSULE PO SCH (09:10)
[2020-02-24] MEDS: ACETAMINOPHEN 325MG TABLET PO PRN (09:11)
[2020-02-24] MEDS: ARFORMOTEROL TARTRATE 15MCG/2ML NEB NEB SCH ×2 (09:15→09:29)
[2020-02-24] MEDS: ENOXAPARIN 30MG/0.3ML SYR SUBCUT SCH (09:15)
[2020-02-24] MEDS: FERROUS SULFATE 325MG TABLET PO SCH ×2 (09:26→17:00)
[2020-02-24] MEDS: FERRIC CITRATE PO SCH ×2 (09:29→17:43)
[2020-02-24] MEDS: YUPELRI 175 MCG/3 ML XX SCH (09:30)
[2020-02-24] MEDS: LIDOCAINE 5% PATCH TOP SCH (09:31)
[2020-02-24 09:50] LABS: PLATELET ESTIMATE NORMAL
[2020-02-24 12:00] VITALS: BP 130/73
[2020-02-24 16:00] VITALS: BP 151/71
[2020-02-24] MEDS: AURYXIA 210 MG PO SCH (17:00)
[2020-02-24] MEDS: MONTELUKAST SODIUM 10MG TABLET PO SCH (17:00)
[2020-02-24] MEDS ORDERED: IOHEXOL-300 100 ML BOTTLE ONE (17:21)
[2020-02-24] MEDS: DIPHENHYDRAMINE 25MG CAPSULE PO PRN (18:21)
[2020-02-24 20:00] VITALS: BP 139/76
[2020-02-24] MEDS ORDERED: EPOETIN ALFA 10000UNITS/ML VIAL SUBCUT SCH (21:00)
[2020-02-24] MEDS: HYDROCODONE/ACETAMINOPHEN 5/325MG TABLET PO PRN (21:46)
[2020-02-24] MEDS: CYCLOBENZAPRINE 10MG TABLET PO SCH (22:15)
[2020-02-25 00:25] VITALS: BP 127/81
[2020-02-25] MEDS: ACETYLCYSTEINE 100MG/ML 10% VIAL 4ML INH SCH ×4 (01:16→15:20)
[2020-02-25] MEDS: IPRATROPIUM/ALBUTEROL 0.5-3(2.5)MG/3ML NEB HHN SCH ×4 (01:16→15:20)
[2020-02-25] MEDS: ACETAMINOPHEN 325MG TABLET PO PRN (03:45)
[2020-02-25 04:00] VITALS: BP 125/76
[2020-02-25] MEDS: PANTOPRAZOLE 40MG DR TABLET PO SCH (06:12)
[2020-02-25] MEDS: HYDRALAZINE HCL 50MG TABLET PO SCH ×2 (06:12→15:05)
[2020-02-25 08:05] VITALS: BP 125/74
[2020-02-25] MEDS: FERROUS SULFATE 325MG TABLET PO SCH (08:34)
[2020-02-25] MEDS: HYDROCODONE/ACETAMINOPHEN 5/325MG TABLET PO PRN (08:34)
[2020-02-25] MEDS: FOLIC ACID/VITAMIN B COMP W-C TABLET PO SCH (08:34)
[2020-02-25] MEDS: DULOXETINE HCL 20MG DR CAPSULE PO SCH ×3 (08:35→10:52)
[2020-02-25] MEDS: AURYXIA 210 MG PO SCH (08:36)
[2020-02-25] MEDS: LIDOCAINE 5% PATCH TOP SCH (08:39)
[2020-02-25] MEDS: FERRIC CITRATE PO SCH ×3 (08:40→12:43)
[2020-02-25] MEDS: ENOXAPARIN 30MG/0.3ML SYR SUBCUT SCH (08:51)
[2020-02-25] MEDS: CYCLOBENZAPRINE 10MG TABLET PO SCH (08:52)
[2020-02-25 09:00] LABS: HEMATOCRIT. 26.6 % (36.0-48.0); HEMOGLOBIN. 8.6 g/dL (12.0-16.0); MEAN CORPUSCULAR HEMOGLOBIN 28.5 pg (28.0-32.0); MEAN PLATELET VOLUME 6.8 fl (7.4-10.4); PLATELET 429 x1000/uL (130-400); RED BLOOD CELL COUNT 3.02 mill/uL (4.2-5.4)
[2020-02-25 09:02] LABS: CHLORIDE 108 mEq/L (98-107)
[2020-02-25] MEDS ORDERED: HYDROCODONE/ACETAMINOPHEN 5/325MG TABLET PO SCH ×2 (09:15→21:00)
[2020-02-25] MEDS: LACTULOSE 20G/30ML UDC PO SCH ×2 (09:15→10:51)
[2020-02-25 12:08] VITALS: BP 128/65
[2020-02-25 12:12] LABS: PLATELET ESTIMATE INCREASED
[2020-02-25 15:32] VITALS: BP 131/74
[2020-02-25 16:05] VITALS: BP 116/71
== END 2020-02-25 18:05 | DRG 205 ==
LOC: ER 12:13 → 7WST 16:51 → EDBEDREQ 16:57 → ENRESERV 02-22 11:19 → 6WST 02-22 22:00
PROVIDERS: ADMIT Internal Medicine Geriatric Medicine; ATTEND Internal Medicine Geriatric Medicine
PROC: 5A1D70Z Performance of Urinary Filtration, Intermittent, Less than 6 Hours Per Day (ICD-10-PCS; principal; 2020-02-22)
PROC: 05H533Z Insertion of Infusion Device into Right Subclavian Vein, Percutaneous Approach (ICD-10-PCS; 2020-02-23)
PROC: B546ZZA Ultrasonography of Right Subclavian Vein, Guidance (ICD-10-PCS; 2020-02-23)
PROC: 30233N1 Transfusion of Nonautologous Red Blood Cells into Peripheral Vein, Percutaneous Approach (ICD-10-PCS; 2020-02-23)
PROC: 5A1D70Z Performance of Urinary Filtration, Intermittent, Less than 6 Hours Per Day (ICD-10-PCS; 2020-02-24)
DX: J95.03 Malfunction of tracheostomy stoma (principal); N18.6 End stage renal disease; J44.1 Chronic obstructive pulmonary disease with (acute) exacerbation; E44.0 Moderate protein-calorie malnutrition; J45.901 Unspecified asthma with (acute) exacerbation; J96.12 Chronic respiratory failure with hypercapnia; J96.11 Chronic respiratory failure with hypoxia; I12.0 Hypertensive chronic kidney disease with stage 5 chronic kidney disease or end stage renal disease; J44.0 Chronic obstructive pulmonary disease with (acute) lower respiratory infection; E87.5 Hyperkalemia; E66.9 Obesity, unspecified; D63.1 Anemia in chronic kidney disease; F32.9 Major depressive disorder, single episode, unspecified; F41.1 Generalized anxiety disorder; J38.01 Paralysis of vocal cords and larynx, unilateral; F17.210 Nicotine dependence, cigarettes, uncomplicated; Z96.642 Presence of left artificial hip joint; K57.90 Diverticulosis of intestine, part unspecified, without perforation or abscess without bleeding; B19.20 Unspecified viral hepatitis C without hepatic coma; G47.30 Sleep apnea, unspecified; Z20.828 Contact with and (suspected) exposure to other viral communicable diseases; J98.4 Other disorders of lung; Z82.49 Family history of ischemic heart disease and other diseases of the circulatory system; Z90.49 Acquired absence of other specified parts of digestive tract; Z83.3 Family history of diabetes mellitus; Z90.710 Acquired absence of both cervix and uterus; Z99.2 Dependence on renal dialysis; Z68.29 Body mass index [BMI] 29.0-29.9, adult; L29.9 Pruritus, unspecified
CPT/HCPCS: 36415; 36573; 36600; 70491; 71045; 72040; 72100; 76937; 80048; 80053; 80202; 82375; 82378; 82607; 82805; 83540; 83550; 83605; 83880; 84145; 84443; 84484; 85025; 86850; 86900; 86920; 87635; 93005; 94640; 97162; 97166; 97530; 99291; C1725; J0885; J1650; J1815; J2060; J2270; J2405; J2543; J2930; J3370; J3490; J7030; J7060; J7608; P9016; Q0163; Q9967; U0003-CS

== ENCOUNTER 2020-03-12 00:55 | Emergency (ER) | payer MEDICARE, MEDICAID ==
[~2020-03-12] VITALS: Ht 162.6 cm; Wt 80.0 kg
[~2020-03-12 00:55] MED LIST changes: +ARFO15VI2 IH; +BUDE0.5A3 IH; +DAPT350V IV; +IPRA3AMP9 HHN
[2020-03-12 02:53] LABS: BASOPHILS % 0.7 % (0.0-2.0); EOSINOPHILS % 5.1 % (0.0-5.0); HEMATOCRIT. 26.3 % (36.0-48.0); HEMOGLOBIN. 8.5 g/dL (12.0-16.0); LYMPHOCYTES % 18.8 % (20.0-50.0); MEAN CORPUSCULAR HEMOGLOBIN 27.4 pg (28.0-32.0); MEAN CORPUSCULAR VOLUME 84.4 fL (81.0-99.0); MEAN PLATELET VOLUME 7.6 fl (7.4-10.4); MONOCYTES % 11.8 % (2.0-8.0); NEUTROPHILS % 63.6 % (40.0-76.0); PLATELET 257 x1000/uL (130-400); RED BLOOD CELL COUNT 3.11 mill/uL (4.2-5.4); RED CELL DISTRIBUTION WIDTH 17.5 % (11.6-14.6)
[2020-03-12 02:55] LABS: CHLORIDE 95 mEq/L (98-107)
[2020-03-12 05:30] VITALS: BP 115/68
== END 2020-03-12 06:40 | disposition home or self-care (01) ==
LOC: ER 00:55
DX: J96.20 Acute and chronic respiratory failure, unspecified whether with hypoxia or hypercapnia (principal); Z03.818 Encounter for observation for suspected exposure to other biological agents ruled out; Z93.0 Tracheostomy status
CPT/HCPCS: 36415; 71045; 80053; 83605; 84145; 85025; 87040; 87077; 99284; U0003

== ENCOUNTER 2020-03-14 21:09 | Inpatient (IN) | payer MEDICARE, MEDICAID ==
[~2020-03-14] VITALS: Ht 167.6 cm; Wt 78.5 kg
[2020-03-14] MEDS ORDERED: PIPERACILLIN/TAZ 3.375G PREMIX 50 ML IV ONE (23:15)
[2020-03-14] MEDS ORDERED: VANCOMYCIN 1 G PREMIX 200 ML IV ONE (23:15)
[2020-03-14 23:47] LABS: BG BASE EXCESS 5.1 mmol/L (-2.0-2.0); BG CARBOXYHEMOGLOBIN 0.8 % (0.5-1.5); BG DEOXYHEMOGLOBIN 12.9 % (0.0-5.0); BG FRACTION INSPIRED OXYGEN 32; BG HCO3 ACT 28.8 mmol/L (22.0-26.0); BG METHEMOGLOBIN 0.3 % (0.0-1.5); BG PCO2 38.6 mmHg (35.0-45.0); BG PO2 53.6 mmHg (75.0-100.0); BG SAMPLE SITE RIGHT RADIAL; BG VENT MODE NASAL CANNULA
[2020-03-15 00:16] LABS: HEMATOCRIT. 26.9 % (36.0-48.0); MEAN CORPUSCULAR HEMOGLOBIN 28.1 pg (28.0-32.0); MEAN CORPUSCULAR VOLUME 84.1 fL (81.0-99.0); MEAN PLATELET VOLUME 7.8 fl (7.4-10.4); PLATELET 280 x1000/uL (130-400); RED CELL DISTRIBUTION WIDTH 18.3 % (11.6-14.6)
[2020-03-15 00:37] LABS: CHLORIDE 95 mEq/L (98-107)
[2020-03-15 01:24] LABS: PLATELET ESTIMATE NORMAL
[2020-03-15] MEDS: IPRATROPIUM BROMIDE (0.02%) 0.5MG/2.5ML NEB HHN SCH (09:30)
[2020-03-15] MEDS: ACETYLCYSTEINE 100MG/ML 10% VIAL 4ML INH SCH (09:30)
[2020-03-15] MEDS: ARFORMOTEROL TARTRATE 15MCG/2ML NEB NEB SCH (09:30)
[2020-03-15 10:30] VITALS: BP 104/60
[2020-03-15] MEDS ORDERED: ONDANSETRON HCL 4MG/2ML INJ IV PRN (10:30)
[2020-03-15] MEDS ORDERED: GUAIFENESIN 200MG/10ML SUGAR FREE UDC PO PRN (10:30)
[2020-03-15] MEDS ORDERED: ACETAMINOPHEN 325MG TABLET PO PRN (10:30)
[2020-03-15] MEDS ORDERED: MAGNESIUM/ALUMINUM HYDROXIDE/SIMETHICONE 30ML UDC PO PRN (10:30)
[2020-03-15] MEDS ORDERED: PANTOPRAZOLE 40MG DR TABLET PO NR (10:45)
[2020-03-15] MEDS ORDERED: DOCUSATE SODIUM 250MG CAPSULE PO ONE (10:45)
[2020-03-15] MEDS ORDERED: ENOXAPARIN 40MG/0.4ML SYR SUBCUT SCH (11:00)
[2020-03-15] MEDS ORDERED: ALPR-393 PO (11:31)
[2020-03-15 12:00] VITALS: BP 92/40
[2020-03-15] MEDS ORDERED: VANCOMYCIN 1 G PREMIX 200 ML IV SCH (13:00)
[2020-03-15] MEDS: LIDOCAINE 5% PATCH TOP SCH (14:03)
[2020-03-15 16:00] VITALS: BP 110/36
[2020-03-15] MEDS: FERROUS SULFATE 300MG/5ML UDC PO SCH (17:41)
[2020-03-15] MEDS ORDERED: EPOETIN ALFA 4000UNITS/ML VIAL SUBCUT SCH (21:00)
[2020-03-15] MEDS: GUAIFENESIN 600MG ER TABLET PO SCH (21:01)
[2020-03-15] MEDS: PREGABALIN 75MG CAPSULE PO SCH (21:01)
[2020-03-16] VITALS (23 sets, daily range): BP systolic 58–145; BP diastolic 30–99
[2020-03-16] MEDS: IPRATROPIUM BROMIDE (0.02%) 0.5MG/2.5ML NEB HHN SCH ×3 (04:29→20:31)
[2020-03-16] MEDS: PANTOPRAZOLE 40MG DR TABLET PO SCH (06:59)
[2020-03-16 07:34] LABS: PHOSPHORUS 4.9 mg/dL (2.5-4.9)
[2020-03-16 07:36] LABS: MEAN CORPUSCULAR HEMOGLOBIN 27.4 pg (28.0-32.0); MEAN PLATELET VOLUME 7.4 fl (7.4-10.4); PLATELET 226 x1000/uL (130-400); RED BLOOD CELL COUNT 2.23 mill/uL (4.2-5.4)
[2020-03-16] MEDS: FERROUS SULFATE 300MG/5ML UDC PO SCH (07:50)
[2020-03-16 08:32] LABS: HEMATOCRIT. 18.8 % (36.0-48.0); HEMOGLOBIN. 6.1 g/dL (12.0-16.0)
[2020-03-16] MEDS ORDERED: LIDOCAINE HCL 1% 20ML VIAL (Pyxis) INJ ONE ×3 (08:33→14:37)
[2020-03-16] MEDS ORDERED: IOHEXOL-300 100 ML BOTTLE ONE ×2 (08:33→09:30)
[2020-03-16] MEDS ORDERED: MIDAZOLAM HCL 2 MG/2 ML VIAL ONE ×3 (08:35→12:54)
[2020-03-16] MEDS ORDERED: FENTANYL CITRATE/PF 50MCG/ML 2ML VIAL ONE ×2 (08:35→12:54)
[2020-03-16] MEDS ORDERED: IPRATROPIUM/ALBUTEROL 0.5-3(2.5)MG/3ML NEB HHN PRN (09:00)
[2020-03-16] MEDS: FOLIC ACID/VITAMIN B COMP W-C TABLET PO SCH (09:00)
[2020-03-16] MEDS: LIDOCAINE 5% PATCH TOP SCH (09:00)
[2020-03-16] MEDS ORDERED: DULOXETINE HCL 30MG DR CAPSULE PO SCH (09:00)
[2020-03-16] MEDS: GUAIFENESIN 600MG ER TABLET PO SCH ×2 (09:00→20:24)
[2020-03-16] MEDS: PREGABALIN 75MG CAPSULE PO SCH ×2 (09:00→20:24)
[2020-03-16] MEDS: DOCUSATE SODIUM 250MG CAPSULE PO SCH (09:00)
[2020-03-16] MEDS ORDERED: CEFTRIAXONE 2 G PREMIX 50 ML IV SCH (10:00)
[2020-03-16] MEDS ORDERED: MORPHINE SULFATE 2 MG/ML CPJ (NOT FOR IM USE) IV PRN (10:15)
[2020-03-16 10:43] LABS: PLATELET ESTIMATE NORMAL
[2020-03-16 10:55] LABS: BG BASE EXCESS 1.8 mmol/L (-2.0-2.0); BG CARBOXYHEMOGLOBIN 0.9 % (0.5-1.5); BG DEOXYHEMOGLOBIN 8.8 % (0.0-5.0); BG FRACTION INSPIRED OXYGEN 21; BG HCO3 ACT 25.7 mmol/L (22.0-26.0); BG METHEMOGLOBIN 0.2 % (0.0-1.5); BG OXYGEN SATURATION 91.1 % (92.0-98.5); BG OXYHEMOGLOBIN 90.1 % (94.0-97.0); BG PCO2 37.2 mmHg (35.0-45.0); BG PH 7.458 (7.350-7.450); BG SAMPLE SITE RIGHT RADIAL; BG TOTAL HEMOGLOBIN 6.9 g/dL (12.0-18.0)
[2020-03-16 10:59] LABS: INR 1.1
[2020-03-16] MEDS ORDERED: LIDOCAINE HCL/EPINEPHRINE 1%-EPI 1:100,000 20 ML VIAL ONE ×2 (10:59→11:16)
[2020-03-16] MEDS ORDERED: BACITRACIN 50,000 UNITS/VIAL ONE (11:00)
[2020-03-16] MEDS ORDERED: NORMAL SALINE 0.9% 10 ML SYR ONE (11:00)
[2020-03-16] MEDS ORDERED: THROMBIN (BOVINE) 5000 UNITS/VIAL TOP ONE (11:01)
[2020-03-16] MEDS ORDERED: SODIUM CHLORIDE 0.9% IRRIG SOL 3,000 ML IR ONE (11:01)
[2020-03-16 11:51] LABS: BG VENT MODE ROOM AIR
[2020-03-16] MEDS ORDERED: PROPOFOL 200MG/20ML VIAL IV ONE (12:54)
[2020-03-16] MEDS ORDERED: GLYCOPYRROLATE 0.2 MG/ML 2ML VIAL ONE (12:54)
[2020-03-16] MEDS ORDERED: NEOSTIGMINE METHYLSULFATE 1MG/ML 10 ML VIAL ONE (12:54)
[2020-03-16] MEDS ORDERED: ROCURONIUM BROMIDE 10MG/ML VIAL 5ML IV ONE (13:30)
[2020-03-16] MEDS ORDERED: DEXAMETHASONE 4MG/ML 1ML VIAL ONE (14:01)
[2020-03-16] MEDS ORDERED: ONDANSETRON HCL 4MG/2ML INJ ONE (14:24)
[2020-03-16] MEDS ORDERED: EPHEDRINE SULFATE 50MG/ML VIAL ONE (14:37)
[2020-03-16] MEDS ORDERED: SODIUM CHLORIDE 0.9% 10ML VIAL ONE ×2 (14:37→16:47)
[2020-03-16] MEDS ORDERED: STERILE WATER FOR INJECTION 10ML VIAL ONE (15:10)
[2020-03-16] MEDS ORDERED: NICARDIPINE 100 MG in SODIUM CHLORIDE 0.9% 60 ML IV PRN (15:30)
[2020-03-16] MEDS ORDERED: DEXT 5%/0.9% NACL 1,000 ML IV SCH (15:30)
[2020-03-16] MEDS ORDERED: HYDROMORPHONE HCL/PF 2MG/ML (OR) ONE (16:05)
[2020-03-16] MEDS ORDERED: LABETALOL HCL 5MG/ML VIAL 20ML IV ONE (16:47)
[2020-03-16] MEDS: ACETYLCYSTEINE 100MG/ML 10% VIAL 4ML INH SCH (17:11)
[2020-03-16] MEDS: ARFORMOTEROL TARTRATE 15MCG/2ML NEB NEB SCH ×2 (17:12→20:24)
[2020-03-16] MEDS: CEFAZOLIN 1000MG PREMIX 50 ML IV SCH (17:49)
[2020-03-16] MEDS: DEXAMETHASONE 4MG/ML 1ML VIAL IV SCH (17:49)
[2020-03-16 18:36] LABS: BG BASE EXCESS -3.7 mmol/L (-2.0-2.0); BG CARBOXYHEMOGLOBIN 0.3 % (0.5-1.5); BG DEOXYHEMOGLOBIN 0.6 % (0.0-5.0); BG FRACTION INSPIRED OXYGEN 100; BG METHEMOGLOBIN 0.4 % (0.0-1.5); BG OXYGEN SATURATION 99.4 % (92.0-98.5); BG OXYHEMOGLOBIN 98.7 % (94.0-97.0); BG PCO2 26.3 mmHg (35.0-45.0); BG PH 7.476 (7.350-7.450); BG PO2 375.4 mmHg (75.0-100.0); BG SAMPLE SITE RIGHT RADIAL; BG TIDAL VOLUME(mL) 550 mL; BG TOTAL HEMOGLOBIN 9.4 g/dL (12.0-18.0); BG VENT MODE VENT - A/C; BG VENT RATE 12 set
[2020-03-16 19:12] LABS: HEMATOCRIT 30.2 % (36.0-48.0); HEMOGLOBIN 9.7 g/dL (12.0-16.0)
[2020-03-16] MEDS: EPOETIN ALFA 10000UNITS/ML VIAL SUBCUT SCH (20:24)
[2020-03-16] MEDS ORDERED: CEFAZOLIN SODIUM 1000MG/VIAL IV SCH (22:00)
[2020-03-16] MEDS: MORPHINE SULFATE 4 MG/ML CPJ (NOT FOR IM USE) IV PRN (22:46)
[2020-03-16 23:32] LABS: BG BASE EXCESS -1.5 mmol/L (-2.0-2.0); BG CARBOXYHEMOGLOBIN 0.2 % (0.5-1.5); BG DEOXYHEMOGLOBIN 1.3 % (0.0-5.0); BG FRACTION INSPIRED OXYGEN 50; BG HCO3 ACT 20.9 mmol/L (22.0-26.0); BG METHEMOGLOBIN 0.2 % (0.0-1.5); BG OXYGEN SATURATION 98.7 % (92.0-98.5); BG OXYHEMOGLOBIN 98.3 % (94.0-97.0); BG PCO2 28.2 mmHg (35.0-45.0); BG PH 7.488 (7.350-7.450); BG PRESSURE SUPPORT 10; BG SAMPLE SITE RIGHT RADIAL; BG TIDAL VOLUME(mL) 550 mL; BG VENT MODE VENT - SIMV; BG VENT RATE 10 set
[2020-03-17] VITALS (86 sets, daily range): BP systolic 71–142; BP diastolic 33–82
[2020-03-17] MEDS: DEXAMETHASONE 4MG/ML 1ML VIAL IV SCH ×4 (00:19→17:12)
[2020-03-17] MEDS: IPRATROPIUM BROMIDE (0.02%) 0.5MG/2.5ML NEB HHN SCH ×5 (00:40→20:00)
[2020-03-17] MEDS: ACETYLCYSTEINE 100MG/ML 10% VIAL 4ML INH SCH ×2 (00:40→08:47)
[2020-03-17] MEDS: MORPHINE SULFATE 4 MG/ML CPJ (NOT FOR IM USE) IV PRN ×5 (01:37→22:41)
[2020-03-17 05:09] LABS: BASOPHILS % 0.3 % (0.0-2.0); HEMATOCRIT. 24.1 % (36.0-48.0); HEMOGLOBIN. 8.1 g/dL (12.0-16.0); LYMPHOCYTES % 10.6 % (20.0-50.0); MEAN CORPUSCULAR HEMOGLOBIN 27.6 pg (28.0-32.0); MEAN PLATELET VOLUME 8.2 fl (7.4-10.4); MONOCYTES % 4.7 % (2.0-8.0); NEUTROPHILS % 84.4 % (40.0-76.0); PLATELET 239 x1000/uL (130-400); RED BLOOD CELL COUNT 2.94 mill/uL (4.2-5.4); RED CELL DISTRIBUTION WIDTH 17.1 % (11.6-14.6)
[2020-03-17] MEDS: PANTOPRAZOLE 40MG DR TABLET PO SCH (05:54)
[2020-03-17] MEDS: FERROUS SULFATE 300MG/5ML UDC PO SCH ×2 (07:00→17:00)
[2020-03-17] MEDS: CEFTRIAXONE 2 G in DEXTROSE 5% WATER 50 ML IV SCH (08:49)
[2020-03-17] MEDS: DOCUSATE SODIUM 250MG CAPSULE PO SCH (09:00)
[2020-03-17] MEDS: PREGABALIN 75MG CAPSULE PO SCH ×2 (09:00→21:00)
[2020-03-17] MEDS: GUAIFENESIN 600MG ER TABLET PO SCH ×2 (09:00→21:00)
[2020-03-17] MEDS: FOLIC ACID/VITAMIN B COMP W-C TABLET PO SCH (09:00)
[2020-03-17 11:42] LABS: BG BASE EXCESS -2.1 mmol/L (-2.0-2.0); BG CARBOXYHEMOGLOBIN 0.3 % (0.5-1.5); BG DEOXYHEMOGLOBIN 3.2 % (0.0-5.0); BG FRACTION INSPIRED OXYGEN 40; BG HCO3 ACT 22.8 mmol/L (22.0-26.0); BG METHEMOGLOBIN 0.5 % (0.0-1.5); BG OXYGEN SATURATION 96.8 % (92.0-98.5); BG PCO2 39.4 mmHg (35.0-45.0); BG PH 7.381 (7.350-7.450); BG PO2 102.4 mmHg (75.0-100.0); BG SAMPLE SITE RIGHT RADIAL; BG TOTAL HEMOGLOBIN 8.4 g/dL (12.0-18.0); BG VENT MODE T-TUBE
[2020-03-17] MEDS: LIDOCAINE 5% PATCH TOP SCH (11:48)
[2020-03-17] MEDS: ARFORMOTEROL TARTRATE 15MCG/2ML NEB NEB SCH (16:30)
[2020-03-17] MEDS: CEFAZOLIN 1000MG PREMIX 50 ML IV SCH (17:12)
[2020-03-18] VITALS (89 sets, daily range): BP systolic 88–148; BP diastolic 38–92
[2020-03-18] MEDS: IPRATROPIUM BROMIDE (0.02%) 0.5MG/2.5ML NEB HHN SCH ×6 (00:20→21:15)
[2020-03-18] MEDS: PANTOPRAZOLE 40MG DR TABLET PO SCH (05:00)
[2020-03-18] MEDS: FERROUS SULFATE 300MG/5ML UDC PO SCH ×2 (05:01→16:14)
[2020-03-18 05:04] LABS: BASOPHILS % 0.1 % (0.0-2.0); HEMATOCRIT. 25.8 % (36.0-48.0); HEMOGLOBIN. 8.8 g/dL (12.0-16.0); LYMPHOCYTES % 9.6 % (20.0-50.0); MEAN CORPUSCULAR HEMOGLOBIN 28.5 pg (28.0-32.0); MEAN CORPUSCULAR VOLUME 83.2 fL (81.0-99.0); MEAN PLATELET VOLUME 7.7 fl (7.4-10.4); MONOCYTES % 9.7 % (2.0-8.0); NEUTROPHILS % 80.6 % (40.0-76.0); PLATELET 259 x1000/uL (130-400); RED CELL DISTRIBUTION WIDTH 17.1 % (11.6-14.6)
[2020-03-18] MEDS: DOCUSATE SODIUM 250MG CAPSULE PO SCH (08:38)
[2020-03-18] MEDS: GUAIFENESIN 600MG ER TABLET PO SCH ×3 (08:38→20:54)
[2020-03-18] MEDS: PREGABALIN 75MG CAPSULE PO SCH ×3 (08:38→20:54)
[2020-03-18] MEDS: FOLIC ACID/VITAMIN B COMP W-C TABLET PO SCH (08:38)
[2020-03-18] MEDS: CEFTRIAXONE 2 G in DEXTROSE 5% WATER 50 ML IV SCH (08:38)
[2020-03-18] MEDS: LIDOCAINE 5% PATCH TOP SCH (08:42)
[2020-03-18] MEDS: ARFORMOTEROL TARTRATE 15MCG/2ML NEB NEB SCH ×2 (09:23→21:15)
[2020-03-18] MEDS: MORPHINE SULFATE 4 MG/ML CPJ (NOT FOR IM USE) IV PRN ×3 (09:51→22:30)
[2020-03-18] MEDS: DIPHENHYDRAMINE 50MG/ML VIAL IV PRN ×2 (11:57→18:05)
[2020-03-18] MEDS: EPOETIN ALFA 10000UNITS/ML VIAL SUBCUT SCH (20:27)
[2020-03-19] VITALS (11 sets, daily range): BP systolic 91–119; BP diastolic 36–75
[2020-03-19] MEDS: IPRATROPIUM BROMIDE (0.02%) 0.5MG/2.5ML NEB HHN SCH ×5 (00:25→20:30)
[2020-03-19] MEDS: DIPHENHYDRAMINE 50MG/ML VIAL IV PRN ×2 (04:50→11:34)
[2020-03-19] MEDS: MORPHINE SULFATE 4 MG/ML CPJ (NOT FOR IM USE) IV PRN ×3 (04:51→11:38)
[2020-03-19] MEDS: PANTOPRAZOLE 40MG DR TABLET PO SCH (07:30)
[2020-03-19] MEDS: FERROUS SULFATE 300MG/5ML UDC PO SCH ×2 (08:00→17:40)
[2020-03-19] MEDS: DOCUSATE SODIUM 250MG CAPSULE PO SCH (08:17)
[2020-03-19] MEDS: PREGABALIN 75MG CAPSULE PO SCH ×2 (08:17→20:03)
[2020-03-19] MEDS: FOLIC ACID/VITAMIN B COMP W-C TABLET PO SCH (08:18)
[2020-03-19] MEDS: GUAIFENESIN 600MG ER TABLET PO SCH ×2 (08:18→20:03)
[2020-03-19] MEDS: ARFORMOTEROL TARTRATE 15MCG/2ML NEB NEB SCH ×2 (08:25→20:30)
[2020-03-19] MEDS: CEFTRIAXONE 2 G in DEXTROSE 5% WATER 50 ML IV SCH (08:33)
[2020-03-19] MEDS: LIDOCAINE 5% PATCH TOP SCH (10:14)
[2020-03-19] MEDS ORDERED: DEXTROSE 50% WATER 50ML SYRINGE IV SCH (15:15)
[2020-03-19] MEDS: DEXTROSE 5% WATER 1,000 ML IV SCH (15:26)
[2020-03-19] MEDS ORDERED: VANCOMYCIN 750 MG PREMIX 150 ML IV SCH (17:00)
[2020-03-20] VITALS (12 sets, daily range): BP systolic 100–141; BP diastolic 60–93
[2020-03-20] MEDS: IPRATROPIUM BROMIDE (0.02%) 0.5MG/2.5ML NEB HHN SCH ×6 (01:11→21:56)
[2020-03-20] MEDS: PANTOPRAZOLE 40MG DR TABLET PO SCH (07:30)
[2020-03-20] MEDS: FERROUS SULFATE 300MG/5ML UDC PO SCH ×2 (08:00→18:00)
[2020-03-20] MEDS: ARFORMOTEROL TARTRATE 15MCG/2ML NEB NEB SCH ×2 (08:33→21:55)
[2020-03-20] MEDS: PREGABALIN 75MG CAPSULE PO SCH ×2 (09:00→21:00)
[2020-03-20] MEDS: DOCUSATE SODIUM 250MG CAPSULE PO SCH (09:00)
[2020-03-20] MEDS: FOLIC ACID/VITAMIN B COMP W-C TABLET PO SCH (09:00)
[2020-03-20] MEDS: CEFTRIAXONE 2 G in DEXTROSE 5% WATER 50 ML IV SCH (09:12)
[2020-03-20] MEDS: LIDOCAINE 5% PATCH TOP SCH (09:38)
[2020-03-20] MEDS: MORPHINE SULFATE 4 MG/ML CPJ (NOT FOR IM USE) IV PRN ×2 (10:27→20:02)
[2020-03-20] MEDS: DIPHENHYDRAMINE 50MG/ML VIAL IV PRN (10:40)
[2020-03-20] MEDS: DEXTROSE 5% WATER 1,000 ML IV SCH (17:40)
[2020-03-20] MEDS: GUAIFENESIN 600MG ER TABLET PO SCH (21:00)
[2020-03-21] VITALS (12 sets, daily range): BP systolic 105–162; BP diastolic 47–89
[2020-03-21] MEDS: IPRATROPIUM BROMIDE (0.02%) 0.5MG/2.5ML NEB HHN SCH ×6 (01:20→20:43)
[2020-03-21] MEDS: FAMOTIDINE 20MG/2ML VIAL IV SCH ×2 (01:44→21:47)
[2020-03-21] MEDS: MORPHINE SULFATE 4 MG/ML CPJ (NOT FOR IM USE) IV PRN (07:40)
[2020-03-21 08:05] LABS: BASOPHILS % 0.3 % (0.0-2.0); EOSINOPHILS % 4.6 % (0.0-5.0); HEMATOCRIT. 24.6 % (36.0-48.0); LYMPHOCYTES % 13.6 % (20.0-50.0); MEAN CORPUSCULAR HEMOGLOBIN 27.9 pg (28.0-32.0); MEAN CORPUSCULAR VOLUME 85.5 fL (81.0-99.0); MEAN PLATELET VOLUME 7.2 fl (7.4-10.4); MONOCYTES % 11.1 % (2.0-8.0); NEUTROPHILS % 70.4 % (40.0-76.0); PLATELET 204 x1000/uL (130-400); RED BLOOD CELL COUNT 2.87 mill/uL (4.2-5.4); RED CELL DISTRIBUTION WIDTH 17.8 % (11.6-14.6)
[2020-03-21 08:32] LABS: PHOSPHORUS 5.4 mg/dL (2.5-4.9)
[2020-03-21] MEDS: ARFORMOTEROL TARTRATE 15MCG/2ML NEB NEB SCH ×2 (09:42→20:43)
[2020-03-21] MEDS: GUAIFENESIN 600MG ER TABLET PO SCH ×2 (10:15→21:47)
[2020-03-21] MEDS: FERROUS SULFATE 300MG/5ML UDC PO SCH ×2 (10:15→17:39)
[2020-03-21] MEDS: DOCUSATE SODIUM 250MG CAPSULE PO SCH (10:15)
[2020-03-21] MEDS: LIDOCAINE 5% PATCH TOP SCH (10:17)
[2020-03-21] MEDS: CEFTRIAXONE 2 G in DEXTROSE 5% WATER 50 ML IV SCH (10:17)
[2020-03-21] MEDS: FOLIC ACID/VITAMIN B COMP W-C TABLET PO SCH (10:18)
[2020-03-21] MEDS: HYDROCODONE/ACETAMINOPHEN 10/325MG TABLET PO PRN (14:37)
[2020-03-21] MEDS: DEXTROSE 5% WATER 1,000 ML IV SCH (14:37)
[2020-03-21] MEDS: EPOETIN ALFA 10000UNITS/ML VIAL SUBCUT SCH (21:47)
[2020-03-21] MEDS: PREGABALIN 50 MG CAPSULE PO SCH (21:47)
[2020-03-22] VITALS (14 sets, daily range): BP systolic 106–159; BP diastolic 49–104
[2020-03-22] MEDS: IPRATROPIUM BROMIDE (0.02%) 0.5MG/2.5ML NEB HHN SCH ×6 (02:23→21:41)
[2020-03-22 07:49] LABS: BASOPHILS % 0.2 % (0.0-2.0); EOSINOPHILS % 7.4 % (0.0-5.0); HEMATOCRIT. 24.4 % (36.0-48.0); HEMOGLOBIN. 7.8 g/dL (12.0-16.0); LYMPHOCYTES % 17.5 % (20.0-50.0); MEAN CORPUSCULAR HEMOGLOBIN 27.8 pg (28.0-32.0); MEAN PLATELET VOLUME 7.4 fl (7.4-10.4); MONOCYTES % 11.4 % (2.0-8.0); NEUTROPHILS % 63.5 % (40.0-76.0); PLATELET 198 x1000/uL (130-400)
[2020-03-22] MEDS: FERROUS SULFATE 300MG/5ML UDC PO SCH ×2 (08:00→18:01)
[2020-03-22] MEDS: FOLIC ACID/VITAMIN B COMP W-C TABLET PO SCH (09:00)
[2020-03-22] MEDS: PREGABALIN 50 MG CAPSULE PO SCH ×2 (09:01→21:39)
[2020-03-22] MEDS: GUAIFENESIN 600MG ER TABLET PO SCH ×2 (09:01→21:39)
[2020-03-22] MEDS: DOCUSATE SODIUM 250MG CAPSULE PO SCH (09:04)
[2020-03-22] MEDS: HYDROCODONE/ACETAMINOPHEN 10/325MG TABLET PO PRN ×2 (09:04→16:42)
[2020-03-22] MEDS: LIDOCAINE 5% PATCH TOP SCH (09:16)
[2020-03-22] MEDS: ARFORMOTEROL TARTRATE 15MCG/2ML NEB NEB SCH ×2 (09:19→21:41)
[2020-03-22] MEDS: DEXTROSE 5% WATER 1,000 ML IV SCH (15:15)
[2020-03-22] MEDS ORDERED: VANCOMYCIN 1 G PREMIX 200 ML IV SCH (18:00)
[2020-03-22] MEDS: FAMOTIDINE 20MG/2ML VIAL IV SCH (21:39)
[2020-03-23] VITALS (12 sets, daily range): BP systolic 93–161; BP diastolic 35–90
[2020-03-23] MEDS: IPRATROPIUM BROMIDE (0.02%) 0.5MG/2.5ML NEB HHN SCH ×6 (01:16→20:41)
[2020-03-23 07:01] LABS: BASOPHILS % 0.3 % (0.0-2.0); EOSINOPHILS % 6.3 % (0.0-5.0); HEMOGLOBIN. 9.4 g/dL (12.0-16.0); LYMPHOCYTES % 13.6 % (20.0-50.0); MEAN CORPUSCULAR VOLUME 86.6 fL (81.0-99.0); MEAN PLATELET VOLUME 7.3 fl (7.4-10.4); MONOCYTES % 14.6 % (2.0-8.0); NEUTROPHILS % 65.2 % (40.0-76.0); PLATELET 169 x1000/uL (130-400); RED BLOOD CELL COUNT 3.35 mill/uL (4.2-5.4); RED CELL DISTRIBUTION WIDTH 17.5 % (11.6-14.6)
[2020-03-23] MEDS: ARFORMOTEROL TARTRATE 15MCG/2ML NEB NEB SCH ×2 (08:39→20:41)
[2020-03-23] MEDS: FERROUS SULFATE 300MG/5ML UDC PO SCH ×2 (08:40→17:26)
[2020-03-23] MEDS: FOLIC ACID/VITAMIN B COMP W-C TABLET PO SCH (08:40)
[2020-03-23] MEDS: DOCUSATE SODIUM 250MG CAPSULE PO SCH (08:41)
[2020-03-23] MEDS: PREGABALIN 50 MG CAPSULE PO SCH ×2 (08:41→20:44)
[2020-03-23] MEDS: GUAIFENESIN 600MG ER TABLET PO SCH ×2 (08:41→20:44)
[2020-03-23] MEDS: LIDOCAINE 5% PATCH TOP SCH (08:43)
[2020-03-23] MEDS ORDERED: SORBITOL 70% SOLN 30ML PO NR (09:00)
[2020-03-23] MEDS: DEXTROSE 5% WATER 1,000 ML IV SCH (15:15)
[2020-03-23] MEDS ORDERED: NA PHOS,M-B/NA PHOS,DI-BA ENEMA 118ML PR PRN (17:00)
[2020-03-23] MEDS: CITALOPRAM HYDROBROMIDE 10MG TABLET PO SCH (17:26)
[2020-03-23] MEDS: FAMOTIDINE 20MG/2ML VIAL IV SCH (20:44)
[2020-03-24] VITALS (12 sets, daily range): BP systolic 94–148; BP diastolic 52–101
[2020-03-24] MEDS: IPRATROPIUM BROMIDE (0.02%) 0.5MG/2.5ML NEB HHN SCH ×6 (00:10→21:36)
[2020-03-24] MEDS: DEXTROSE 5% WATER 1,000 ML IV SCH (03:31)
[2020-03-24 06:10] LABS: HEMOGLOBIN. 8.3 g/dL (12.0-16.0); MEAN CORPUSCULAR HEMOGLOBIN 27.8 pg (28.0-32.0); MEAN CORPUSCULAR VOLUME 86.6 fL (81.0-99.0); MEAN PLATELET VOLUME 7.3 fl (7.4-10.4); PLATELET 159 x1000/uL (130-400); RED CELL DISTRIBUTION WIDTH 17.7 % (11.6-14.6)
[2020-03-24] MEDS ORDERED: NA PHOS,M-B/NA PHOS,DI-BA ENEMA 118ML PR PRN ×2 (08:00→08:15)
[2020-03-24] MEDS: FERROUS SULFATE 300MG/5ML UDC PO SCH ×3 (08:30→18:00)
[2020-03-24] MEDS: SORBITOL 70% SOLN 30ML PO NR ×2 (08:30→08:48)
[2020-03-24] MEDS: ARFORMOTEROL TARTRATE 15MCG/2ML NEB NEB SCH ×2 (08:42→21:36)
[2020-03-24] MEDS: FOLIC ACID/VITAMIN B COMP W-C TABLET PO SCH ×2 (08:48→09:00)
[2020-03-24] MEDS: DOCUSATE SODIUM 250MG CAPSULE PO SCH ×2 (08:48→09:00)
[2020-03-24] MEDS: GUAIFENESIN 600MG ER TABLET PO SCH ×3 (08:48→23:04)
[2020-03-24] MEDS: PREGABALIN 50 MG CAPSULE PO SCH ×3 (08:48→23:04)
[2020-03-24] MEDS: LIDOCAINE 5% PATCH TOP SCH ×2 (08:50→09:00)
[2020-03-24] MEDS: CITALOPRAM HYDROBROMIDE 10MG TABLET PO SCH ×2 (08:51→09:00)
[2020-03-24 09:10] LABS: PLATELET ESTIMATE NORMAL
[2020-03-24] MEDS ORDERED: LACTULOSE 20G/30ML UDC PO PRN (21:00)
[2020-03-24] MEDS: FAMOTIDINE 20MG/2ML VIAL IV SCH (23:04)
== END 2020-03-24 23:37 | DRG 853 ==
LOC: ER 21:09 → MICUSO 23:15 → 6WST 03-15 10:18 → MICUNO 03-16 17:15 → 5EST 03-18 23:00
PROVIDERS: ADMIT Internal Medicine Geriatric Medicine; ATTEND Internal Medicine Geriatric Medicine
PROC: 5A1D70Z Performance of Urinary Filtration, Intermittent, Less than 6 Hours Per Day (ICD-10-PCS; 2020-03-15)
PROC: 0B21XFZ Change Tracheostomy Device in Trachea, External Approach (ICD-10-PCS; principal; 2020-03-16)
PROC: 0RG20J1 Fusion of 2 or more Cervical Vertebral Joints with Synthetic Substitute, Posterior Approach, Posterior Column, Open Approach (ICD-10-PCS; 2020-03-16)
PROC: 00NW0ZZ Release Cervical Spinal Cord, Open Approach (ICD-10-PCS; 2020-03-16)
PROC: 0RG10A0 Fusion of Cervical Vertebral Joint with Interbody Fusion Device, Anterior Approach, Anterior Column, Open Approach (ICD-10-PCS; 2020-03-16)
PROC: 0RB30ZZ Excision of Cervical Vertebral Disc, Open Approach (ICD-10-PCS; 2020-03-16)
PROC: 0W960ZZ Drainage of Neck, Open Approach (ICD-10-PCS; 2020-03-16)
PROC: 0B7 Respiratory System, Dilation (ICD-10-PCS; 2020-03-16)
PROC: 05H533Z Insertion of Infusion Device into Right Subclavian Vein, Percutaneous Approach (ICD-10-PCS; 2020-03-16)
PROC: B516ZZA Fluoroscopy of Right Subclavian Vein, Guidance (ICD-10-PCS; 2020-03-16)
PROC: B546ZZA Ultrasonography of Right Subclavian Vein, Guidance (ICD-10-PCS; 2020-03-16)
PROC: 30233N1 Transfusion of Nonautologous Red Blood Cells into Peripheral Vein, Percutaneous Approach (ICD-10-PCS; 2020-03-16)
PROC: 5A1D70Z Performance of Urinary Filtration, Intermittent, Less than 6 Hours Per Day (ICD-10-PCS; 2020-03-17)
PROC: 5A1D70Z Performance of Urinary Filtration, Intermittent, Less than 6 Hours Per Day (ICD-10-PCS; 2020-03-19)
PROC: 5A1D70Z Performance of Urinary Filtration, Intermittent, Less than 6 Hours Per Day (ICD-10-PCS; 2020-03-22)
PROC: 5A1D70Z Performance of Urinary Filtration, Intermittent, Less than 6 Hours Per Day (ICD-10-PCS; 2020-03-24)
DX: A41.02 Sepsis due to Methicillin resistant Staphylococcus aureus (principal); G92 Toxic encephalopathy; G82.50 Quadriplegia, unspecified; K65.9 Peritonitis, unspecified; N18.6 End stage renal disease; J18.9 Pneumonia, unspecified organism; J96.21 Acute and chronic respiratory failure with hypoxia; J96.22 Acute and chronic respiratory failure with hypercapnia; G06.2 Extradural and subdural abscess, unspecified; G95.20 Unspecified cord compression; E44.0 Moderate protein-calorie malnutrition; J44.1 Chronic obstructive pulmonary disease with (acute) exacerbation; J45.901 Unspecified asthma with (acute) exacerbation; M46.22 Osteomyelitis of vertebra, cervical region; N25.81 Secondary hyperparathyroidism of renal origin; J39.0 Retropharyngeal and parapharyngeal abscess; J44.0 Chronic obstructive pulmonary disease with (acute) lower respiratory infection; I12.0 Hypertensive chronic kidney disease with stage 5 chronic kidney disease or end stage renal disease; J95.03 Malfunction of tracheostomy stoma; E83.52 Hypercalcemia; D63.1 Anemia in chronic kidney disease; M54.12 Radiculopathy, cervical region; M48.02 Spinal stenosis, cervical region; I51.7 Cardiomegaly; F41.1 Generalized anxiety disorder; F32.9 Major depressive disorder, single episode, unspecified; M54.5 Low back pain; M54.16 Radiculopathy, lumbar region; K21.9 Gastro-esophageal reflux disease without esophagitis; G47.33 Obstructive sleep apnea (adult) (pediatric); B19.20 Unspecified viral hepatitis C without hepatic coma; F17.210 Nicotine dependence, cigarettes, uncomplicated; J98.4 Other disorders of lung; E87.5 Hyperkalemia; I34.8 Other nonrheumatic mitral valve disorders; E03.9 Hypothyroidism, unspecified; Z96.642 Presence of left artificial hip joint; I34.0 Nonrheumatic mitral (valve) insufficiency; J38.01 Paralysis of vocal cords and larynx, unilateral; E11.69 Type 2 diabetes mellitus with other specified complication; E11.22 Type 2 diabetes mellitus with diabetic chronic kidney disease; K59.00 Constipation, unspecified; E11.649 Type 2 diabetes mellitus with hypoglycemia without coma; B96.89 Other specified bacterial agents as the cause of diseases classified elsewhere; E66.9 Obesity, unspecified; G89.29 Other chronic pain; Z20.828 Contact with and (suspected) exposure to other viral communicable diseases; Z88.1 Allergy status to other antibiotic agents; Z88.8 Allergy status to other drugs, medicaments and biological substances; Z79.891 Long term (current) use of opiate analgesic; Z79.899 Other long term (current) drug therapy; Z82.49 Family history of ischemic heart disease and other diseases of the circulatory system; Z68.27 Body mass index [BMI] 27.0-27.9, adult; Z86.73 Personal history of transient ischemic attack (TIA), and cerebral infarction without residual deficits; Z90.710 Acquired absence of both cervix and uterus; Z98.891 History of uterine scar from previous surgery; Z83.3 Family history of diabetes mellitus; Z87.01 Personal history of pneumonia (recurrent); Z99.2 Dependence on renal dialysis; Z79.51 Long term (current) use of inhaled steroids; Z86.14 Personal history of Methicillin resistant Staphylococcus aureus infection; Z90.49 Acquired absence of other specified parts of digestive tract
CPT/HCPCS: 36415; 36573; 36600; 71045; 72040; 72141; 76000; 76937; 78806; 80048; 80053; 80202; 82375; 82805; 82962; 83605; 83735; 83880; 84100; 84145; 85014; 85018; 85025; 85651; 86140; 86850; 86900; 86920; 87070; 87075; 87077; 88304; 88311; 92610; 93005; 93306; 93970; 95863; 95925; 95926; 95928; 95929; 96365; 97162; 97164; 97166; 97530; 97535; 99285; A4216; A9547; C1713; C1725; C1751; J0690; J0696; J0885; J1100; J1170; J1200; J1644; J1650; J2250; J2270; J2405; J2543; J2704; J2710; J3010; J3370; J3490; J7042; J7050; J7060; J7070; J7608; L0172; P9016; Q9967; U0003-CS